=== PATIENT | male | born 1965 | race Caucasian/White ===

== ENCOUNTER 2020-09-24 14:01 | Emergency (ER) | payer MEDICAID, OTHER ==
[2020-09-24] MEDS ORDERED: Sodium Chloride 0.9% 1,000 ML IV ONE (14:32)
--- NOTE | 2020-09-24 14:33 | PCM.EKG ---
#1 Interpretation EKG Date: 09/24/20 Time: 14:25 Rhythm: NSR Rate (Beats/Min): 148 [place]: Normal P-Wave: Present QRS: Normal ST-T: Normal QT: Normal GA/PQ Interval: 71 Comparison: NA - No Prior EKG EKG Interpretation Comments: sinus tachycardia
[2020-09-24] MEDS ORDERED: MVI, Adult with Vitamin K 10 ML, Thiamine 100 MG, Folic Acid 1 MG in Sodium Chloride 0.... IV ONE ×4 (14:50)
[2020-09-24] MEDS ORDERED: LORazepam 2 MG/ML SDV IVPUSH ONE ×2 (14:52→16:08)
[2020-09-24] MEDS ORDERED: Dexamethasone 10 MG/ML SDV IVPUSH ONE (15:07)
--- NOTE | 2020-09-24 15:27 | PCM.SN.2 ---
- Free Text/Narrative Note: Bedside [id number] ultrasound does not reveal evidence of AAA
[2020-09-24 15:30] LABS: BLOOD UREA NITROGEN,BUN 8 mg/dL (7.0-18.0); CARBON DIOXIDE,CO2 25.6 mmol/L (21.0-32.0); CHLORIDE,CL 103 mmol/L (98-107); GLUCOSE RANDOM 124 mg/dL (74-106); LIPASE 128 U/L (73-393); POTASSIUM,K 4.1 mmol/L (3.5-5.1); SODIUM,NA 139 mmol/L (136-148)
--- NOTE | 2020-09-24 15:38 | EDM.PDOC ---
ED HPI GENERAL MEDICAL PROBLEM - General Chief Complaint: Back Pain or Injury Stated Complaint: PAIN Time Seen by Provider: 09/24/20 14:11 Source of Information: Reports: Patient History Limitations: Reports: No Limitations - History of Present Illness INITIAL COMMENTS - FREE TEXT/NARRATIVE: HISTORY AND PHYSICAL: History of present illness: Patient is a 55-year-old male who presents to the emergency department secondary to a 1 week history of increasing low back pain. Patient reports that he has had low back pain for many years and has dealt with it on his own and never e valuated for it before but states that over the last week his pain has increased and is unbearable now along with left lower extremity weakness worsening over the past 1 week. Patient states that the pain is located along the spine and low back but also radiates down into his legs and assumed sciatic nerve issues. Patient reports that the left side is more painful than the right side and his left leg is weaker than the right side. Patient reports that he has been incontinent of urine and stool intermittently over the past several days. Patient states that it is difficult but he is able to walk. Patient relates that he smokes a pack of cigarettes daily for many years and drinks every day and he normally has at least 12 beers daily and states he does have to drink every day or he gets shaky; last had 3 beers just prior to arrival to the ED. Patient also reports that 5 years ago he had a heart attack but states that there was no intervention and he left the hospital on his own against direction of the hospital. Patient states he also has "liver issues" related to drinking. Patient notes he also has all over muscle soreness and has a sunburn to his left knees and calves which are also sore. Denies trauma or injury. Patient denies fever, chills, chest pain, shortness of breath, or cough. Denies headache, neck stiff ness, change in vision, syncope, or near syncope. Denies na usea, vomiting, abdominal pain, diarrhea, constipation, or dysuria. Has not noted any blood in urine or stool. Patient has been eating and drinking appropriately. Review of systems: As per history of present illness and below otherwise all systems reviewed and negative. Past medical history: As per history of present illness and as reviewed below otherwise noncontributory. Surgical history: As per history of present illness and as reviewed below otherwise noncontributory. Social history: See social history for further information Family history: As per history of present illness and as reviewed below otherwise noncontributory. Physical exam: General: Patient is alert, oriented, and laying flat on exam table; appearing uncomfortable with movements. Patient tachycardic 148 bpm but the remainder of his vitals are stable and reviewed by me. HEENT: Atraumatic, normocephalic, pupils equal and reactive bilaterally, negative for conjunctival pallor or scleral icterus, mucous membranes dry, TMs normal bilaterally, throat clear, neck supple, nontender, trachea midline. No drooling or trismus noted. No meningeal signs. No hot potato voice noted. Lungs: Clear to auscultation, breath sounds equal bilaterally, chest nontender. Heart: S1S2, tachycardic at 148 bpm with regular rhythm without overt murmur Abdomen: Soft, nondistended, mild right upper quadrant tenderness. Palpable h epatomegaly noted, negative for masses or splenomegaly. Negative for costovertebral tenderness. Pelvis: Stable nontender. Genitourinary: Deferred. Rectal: Rectal exam performed by PA student Max Tobias observed and supervised directly by me. Decreased rectal tone and incontinent of stool on exam. Skin: Erythema noted over tops of knees and posterior calves bilaterally with slight increase in warmth of these areas (patient notes sunburn). Otherwise, Intact, warm, dry. No lesions or rashes noted. Extremities: See skin and neuro. Bilateral calve tenderness. Otherwise, atraumatic, negative for cords. Neuro: Awake, alert, oriented. Cranial nerves II through XII unremarkable. No UE/LE drift. Patient difficulty to perform bilateral SLR (2/5 strength of the right and 1/5 of the left), 3/5 dorsiflexion/plantar flexion of the RLE and 1/5 of the left lower extremity. Near absent patellar reflex on the right and -2 of the left. -4 plantar reflexes bilaterally. Saddle paresthesia of the left and decreased sensation of the complete LLE. DP/PT pulses intact bilaterally with cap refill < 2 seconds. Patient is able to ambulate on exam but with difficulty and able to sit on edge of bed with bent knees. Full passive ROM of bilateral extremities. Notes: Dr. Johnston directly involved in patient care. Patient is a 55-year-old male who presents emergency department secondary to a 1 week history of worsening low back pain with associated lower extremity weakness, bowel and bladder incontinence. Upon arrival to the ED, patient is mildly uncomfortable and lying on the exam table; discomfort worse with movement and improved with laying still. Patient is noted to be tachycardic at 148 bpm but otherwise vitally stable. Patient has mild right upper quadrant abdominal pain and has palpable hepatomegaly. Patient noted to have decreased strength in his lower extremities with his left being significantly worse than his right. Patient has reduced dorsiflexion plantarflexion with the left being near absent and greatly diminished on the right. Patient noted to have saddle paresthesia on the left as well as paresthesia affecting the majority of the left leg from mid thigh to feet. Bilateral pedal pulses palpated. Patient has absent patellar reflex on the left side and notably decreased on the right. On rectal exam patient is noted to have decreased rectal tone and is incontinent of stool on exam. Will perform cardiac evaluation and call MRI for availability to [facility] patients spine. CIWA 0. Also, patient has bilateral calf pain / swelling / erythema and will obtain bilateral LE US r/o DVT. See Dr. Johnston's dictation for specific EKG interpretation. However, EKG shows sinus tachycardia HR 140s. Otherwise, no STEMI or ischemic changes. MRI does not have capability of imaging today as the schedule is full. Given patient has low back pain with bowel bladder incontinence and saddle anesthesia on exam with significant left lower extremity weakness, patient requires chao sfer to a higher level facility that can perform MRI imaging of his spine immediately. Dr. Johnston performs bedside specific US without evidence of AAA. See his official note for dictation. I did call and speak to Dr. Donaldson at [facility] and thoroughly discussed patients case. Accepting of transfer. Flight arranged. Labwork pending. US is unable to perform bilateral LE venous US due to time constraint with flight. Flight notified that delay 30 minutes before arrival. Patient brought down to CT for CT chest/abd/pelvis angio aorta protocol. Voices understanding and is agreeable to plan of care. Denies any further questions or concerns at this time. Flight at bedside. Patient tachycardic 120s otherwise vitally stable. Patient more drowsy following Ativan but discharged in stable condition. Images for CT were pushed to [facility] and labwork sent to [place]. CBC shows a mildly low red blood cell count at 3.36 with a hemoglobin mildly low at 11.9 and hematocrit 35.1. MCV and elevated at 104.5 and MCH at 35.4. Suggestive of macrocytic anemia. Platelets are noted to be low at 85. INR is normal at 1.05. CMP shows a mildly elevated glucose at 124. With AST mildly elevated at 94. Alk phos elevated at 166. Creatinine kinase is within normal limits. Troponin negative. Otherwise mild derangements of CMP unremarkable. Lipase is within normal limits at 128. Urinalysis is unremarkable. Alcohol level 192. Angiography of chest abdomen pelvis shows normal caliber thoracic and abdominal aorta without evidence of aortic dissection or penetrating atheromatosis ulcer. No significant atheromatous plaque. Mediastinal bilateral hilar and left axillary lymphadenopathy of uncertain etiology. Could be reactive, metastatic, or lymphoproliferative. No primary malignancy identified. Mild paraseptal emphysema. 1.1 cm groundglass pulmonary nodule in the left upper lobe. No acute findings in the abdomen or pelvis. Labwork and imaging was not able to be discussed with patient as he was already at receiving facility prior to completion. Accepting facility made aware of labwork and imaging results. Diagnostics: CBC, CMP, EKG, UA, troponin, Lipase, INR, (LE Venous US not performed as patient requires emergent transfer to higher level facility for MRI) Therapeutics: NS, banana bag, Ativan, Decadron Impression: Acute low back pain r/o possible cord compression Saddle anesthesia Bowel and bladder incontinence Lower extremity weakness Chronic alcohol use Thrombocytopenia Macrocytic anemia, mild Transaminitis Plan: Transfer via flight to Dr. Donaldson at [facility] via flight. Definitive disposition and diagnosis as appropriate pending reevaluation and review of above. lower back Pain Score (Numeric/FACES): 10 - Related Data Allergies Allergy/AdvReac Type Severity Reaction Status Date / Time Penicillins Allergy Anaphylactic Verified 09/24/20 15:30 Shock Home Meds: Home Meds amLODIPine [Norvasc] mg PO DAILY 09/24/20 [History] ED ROS GENERAL - Review of Systems Review Of Systems: Comprehensive ROS is negative, except as noted in HPI. ED EXAM, GENERAL - Physical Exam Exam: See Below (see dictation) Course - Vital Signs Last Recorded V/S: Last Vital Signs Temp 97.7 F 09/24/20 15:00 Pulse 149 H 06/14/21 15:00 Resp 20 09/24/20 15:00 BP 126/87 09/24/20 15:00 Pulse Ox 96 09/24/20 15:00 - Orders/Labs/Meds Orders: Active Orders 24 hr Category Date Time Status Ang Chest [CT] Stat Exams 09/24/20 16:13 Taken Labs: Laboratory Tests 09/24/20 09/24/20 09/24/20 Range/Units 14:28 14:28 14:28 WBC 6.00 (4.0-11.0) K/uL RBC 3.36 L (4.50-5.90) M/uL Hgb 11.9 L (13.0-17.0) g/dL Hct 35.1 L (38.0-50.0) % MCV 104.5 H (80.0-98.0) fL MCH 35.4 H (27.0-32.0) pg MCHC 33.9 (31.0-37.0) g/dL RDW Std Deviation 59.3 (28.0-62.0) fl RDW Coeff of Maria C 16 H (11.0-15.0) % Plt Count 85 L (150-400) K/uL MPV 11.80 (7.40-12.00) fL Neut % (Auto) 53.6 (48.0-80.0) % Lymph % (Auto) 31.3 (16.0-40.0) % [place] % (Auto) 12.8 (0.0-15.0) % Eos % (Auto) 1.8 (0.0-7.0) % Baso % (Auto) 0.5 (0.0-1.5) % Neut # (Auto) 3.2 (1.4-5.7) K/uL Lymph # (Auto) 1.9 (0.6-2.4) K/uL [place] # (Auto) 0.8 (0.0-0.8) K/uL Eos # (Auto) 0.1 (0.0-0.7) K/uL Baso # (Auto) 0.0 (0.0-0.1) K/uL Nucleated RBC % 0.8 /100WBC Nucleated RBCs # 0 K/uL INR Sodium 139 (136-148) mmol/L Potassium 4.1 (3.5-5.1) mmol/L Chloride 103 (98-107) mmol/L Carbon Dioxide 25.6 (21.0-32.0) mmol/L BUN 8 (7.0-18.0) mg/dL Creatinine 1.0 (0.8-1.3) mg/dL Est Cr Clr Drug Dosing TNP Estimated GFR (MDRD) > 60.0 ml/min Glucose 124 H (74-106) mg/dL Calcium 8.5 (8.5-10.1) mg/dL Total Bilirubin 0.6 (0.2-1.0) mg/dL AST 94 H (15-37) IU/L ALT 59 (14-63) IU/L Alkaline Phosphatase 166 H (46-116) U/L Creatine Kinase (26-308) U/L Troponin I < 0.050 (0.000-0.056) ng/mL Total Protein 7.5 (6.4-8.2) g/dL Albumin 2.8 L (3.4-5.0) g/dL Globulin 4.7 H (2.6-4.0) g/dL Albumin/Globulin Ratio 0.6 L (0.9-1.6) Lipase 128 (73-393) U/L Urine Color Urine Appearance Urine pH (5.0-8.0) Ur Specific [place] (1.001-1.035) Urine Protein (NEGATIVE) mg/dL Urine Glucose (UA) (NEGATIVE) mg/dL Urine Ketones (NEGATIVE) mg/dL Urine Occult Blood (NEGATIVE) Urine Nitrite (NEGATIVE) Urine Bilirubin (NEGATIVE) Urine Urobilinogen (<2.0) EU/dL Ur Leukocyte Esterase (NEGATIVE) Ethyl Alcohol 192 mg/dL 09/24/20 09/24/20 09/24/20 Range/Units 14:28 15:24 15:50 WBC (4.0-11.0) K/uL RBC (4.50-5.90) M/uL Hgb (13.0-17.0) g/dL Hct (38.0-50.0) % MCV (80.0-98.0) fL MCH (27.0-32.0) pg MCHC (31.0-37.0) g/dL RDW Std Deviation (28.0-62.0) fl RDW Coeff of Maria C (11.0-15.0) % Plt Count (150-400) K/uL MPV (7.40-12.00) fL Neut % (Auto) (48.0-80.0) % Lymph % (Auto) (16.0-40.0) % [place] % (Auto) (0.0-15.0) % Eos % (Auto) (0.0-7.0) % Baso % (Auto) (0.0-1.5) % Neut # (Auto) (1.4-5.7) K/uL Lymph # (Auto) (0.6-2.4) K/uL [place] # (Auto) (0.0-0.8) K/uL Eos # (Auto) (0.0-0.7) K/uL Baso # (Auto) (0.0-0.1) K/uL Nucleated RBC % /100WBC Nucleated RBCs # K/uL INR 1.05 Sodium (136-148) mmol/L Potassium (3.5-5.1) mmol/L Chloride (98-107) mmol/L Carbon Dioxide (21.0-32.0) mmol/L BUN (7.0-18.0) mg/dL Creatinine (0.8-1.3) mg/dL Est Cr Clr Drug Dosing Estimated GFR (MDRD) ml/min Glucose (74-106) mg/dL Calcium (8.5-10.1) mg/dL Total Bilirubin (0.2-1.0) mg/dL AST (15-37) IU/L ALT (14-63) IU/L Alkaline Phosphatase (46-116) U/L Creatine Kinase 230 (26-308) U/L Troponin I (0.000-0.056) ng/mL Total Protein (6.4-8.2) g/dL Albumin (3.4-5.0) g/dL Globulin (2.6-4.0) g/dL Albumin/Globulin Ratio (0.9-1.6) Lipase (73-393) U/L Urine Color YELLOW Urine Appearance CLEAR Urine pH 5.5 (5.0-8.0) Ur Specific [place] 1.010 (1.001-1.035) Urine Protein NEGATIVE (NEGATIVE) mg/dL Urine Glucose (UA) NEGATIVE (NEGATIVE) mg/dL Urine Ketones NEGATIVE (NEGATIVE) mg/dL Urine Occult Blood NEGATIVE (NEGATIVE) Urine Nitrite NEGATIVE (NEGATIVE) Urine Bilirubin NEGATIVE (NEGATIVE) Urine Urobilinogen 0.2 (<2.0) EU/dL Ur Leukocyte Esterase NEGATIVE (NEGATIVE) Ethyl Alcohol mg/dL Meds: Medications Discontinued Medications Generic Name Dose Route Start Last Admin Trade Name Freq PRN Reason Stop Dose Admin Dexamethasone 16 mg 09/24/20 15:07 09/24/20 15:13 Dexamethasone 10 Mg/Ml Sdv IVPUSH 09/24/20 15:08 16 mg ONETIME ONE Administration Sodium Chloride 1,000 mls @ 999 mls/hr 09/24/20 14:32 09/24/20 14:46 Normal Saline IV 09/24/20 15:32 999 mls/hr BOLUS ONE Administration Multivitamins/Minerals 10 ml/ 1,011.2 mls @ 999 mls/hr 09/24/20 14:50 09/24/20 15:54 Thiamine HCl 100 mg/ Folic IV 09/24/20 15:50 999 mls/hr Acid 1 mg/ Sodium Chloride ONETIME ONE Administration Iopamidol 100 ml 09/24/20 16:40 09/24/20 16:41 Iopamidol 755 Mg/Ml 500 Ml Multipack Bottle IVPUSH 09/24/20 16:41 100 ml ONETIME ONE Administration Lorazepam 2 mg 09/24/20 14:52 09/24/20 15:14 Lorazepam 2 Mg/Ml Sdv IVPUSH 09/24/20 14:53 2 mg ONETIME ONE Administration Lorazepam 2 mg 09/24/20 16:08 09/24/20 19:14 Lorazepam 2 Mg/Ml Sdv IVPUSH 09/24/20 16:09 Not Given ONETIME ONE Departure - Departure Time of Disposition: 21:09 Disposition: DC/Tfer to Acute Hospital 02 Clinical Impression: Saddle anesthesia, Bowel and bladder incontinence, Chronic alcohol use, Thrombocytopenia, Macrocytic anemia, Transaminitis Acute low back pain Qualifiers: Back pain laterality: bilateral Sciatica presence: unspecified whether sciatica present Qualified Code(s): M54.5 - Low back pain Lower extremity weakness Qualifiers: Laterality: bilateral Qualified Code(s): R29.898 - Other symptoms and signs involving the musculoskeletal system - Discharge Information Referrals: PCP,None [Ordering Only Provider] - Forms: ED Department Discharge Sepsis Event Note (ED) - Focused Exam Vital Signs: Vital Signs Temp Pulse Resp BP Pulse Ox 09/24/20 15:00 97.7 F 149 H 20 126/87 96 - My Orders Last 24 Hours: My Active Orders 09/24/20 16:13 Ang Chest [CT] Stat - Assessment/Plan Last 24 Hours: My Active Orders 09/24/20 16:13 Ang Chest [CT] Stat
[2020-09-24] MEDS ORDERED: Iopamidol 755 MG/ML 500 ML Multipack Bottle IVPUSH ONE (16:40)
--- NOTE | 2020-09-24 18:39 | CT ---
INDICATION: Low back pain and low leg pain, tachycardia. COMPARISON: None. TECHNIQUE: CTA of the chest, abdomen, and pelvis with 100 cc of Isovue 370 IV contrast. Coronal and sagittal reconstructions. 3D post processing was performed. FINDINGS: Chest: Normal heart size. Normal variant origin of the left vertebral artery from the aortic arch. The great vessels are widely patent. Normal caliber thoracic aorta. No evidence of aortic dissection or penetrating atheromatous ulcer. No definite intramural hematoma, however a noncontrast phase was not provided. No significant atheromatous plaque. Normal caliber central pulmonary arteries. No large central pulmonary embolism. No pericardial effusion. There is mediastinal and bilateral hilar lymphadenopathy of uncertain etiology. For example, a left pretracheal lymph node measures 1.3 cm in short axis (series 402, image 265) and a subcarinal lymph node measures 1.7 cm in short axis (image 361). There is also a borderline enlarged left axillary lymph node measuring 1.0 cm in short axis (image 132). Fat stranding in the left axilla. No focal consolidation, pleural effusion, pneumothorax. Mild paraseptal emphysema in the lung apices. Minimal bibasilar atelectasis. 1.1 cm ground-glass pulmonary nodule in the anterior left upper lobe (series 4 image 93). Few additional smaller ill-defined ground-glass nodular opacities in the lingula. No central endobronchial lesion. Mild diffuse bronchial wall thickening. The thyroid gland is normal in appearance. The bones are unremarkable. Abdomen/Pelvis: Normal caliber abdominal aorta and bilateral iliac arteries. No significant atheromatous plaque. No evidence of aortic dissection or penetrating atheromatous ulcer. The celiac artery, superior mesenteric artery, inferior mesenteric artery, and bilateral renal arteries are patent without significant stenosis. Arterial phase of contrast limits evaluation of the solid organs. Tiny calcified granuloma in the inferior right hepatic lobe. Calcified splenic granulomas. The gallbladder, pancreas, and adrenal glands are negative. Symmetric enhancement of the kidneys. No hydronephrosis. No obstructing urinary calculi. The bladder and prostate gland are unremarkable. No bowel dilation. Negative appendix. No intraperitoneal free air or fluid. Mildly prominent bilateral inguinal lymph nodes. No lymphadenopathy by size criteria within the abdomen or pelvis. Mild degenerative changes of the spine and hips. IMPRESSION: 1. Normal caliber thoracic and abdominal aorta without evidence of aortic dissection or penetrating atheromatous ulcer. No significant atheromatous plaque. 2. Mediastinal, bilateral hilar, and left axillary lymphadenopathy of uncertain etiology. This could be reactive, metastatic, or lymphoproliferative. No primary malignancy is identified. 3. Mild paraseptal emphysema. 4. 1.1 cm ground-glass pulmonary nodule in the left upper lobe. Please see follow-up guidelines below. 5. No acute findings in the abdomen or pelvis. [employer] - SUBSOLID NODULES: GROUND GLASS - nodule less than 6 mm: No routine follow-up. - nodule greater than 6 mm: CT at 6-12 months to confirm persistence, then CT every 2 years until 5 years. Please note that all CT scans at this facility use dose modulation, iterative reconstruction, and/or weight-based dosing when appropriate to reduce radiation dose to as low as reasonably achievable. Dictated by Kati Davis MD @ 09/24/2020 6:37:[address] Kati Davis @ Sep 24 2020 6:37PM
--- NOTE | 2020-09-25 12:15 | CT ---
EXAM DATE: 09/24/20 PATIENT'S AGE: 55 Patient: BANDAR BERG Facility: [facility] Site . Site : [id number] Study: CT-Chest/Abd/Pelvis Angio WHOLE AORTA-09/24/2020 5:08:09 PM Ordering Physician: Ceasar Hsieh Final Report: INDICATION: Low back pain and low leg pain, tachycardia. COMPARISON: None. TECHNIQUE: CTA of the chest, abdomen, and pelvis with 100 cc of Isovue 370 IV contrast. Coronal and sagittal reconstructions. 3D post processing was performed. FINDINGS: Chest: Normal heart size. Normal variant origin of the left vertebral artery from the aortic arch. The great vessels are widely patent. Normal caliber thoracic aorta. No evidence of aortic dissection or penetrating atheromatous ulcer. No definite intramural hematoma, however a noncontrast phase was not provided. No significant atheromatous plaque. Normal caliber central pulmonary arteries. No large central pulmonary embolism. No pericardial effusion. There is mediastinal and bilateral hilar lymphadenopathy of uncertain etiology. For example, a left pretracheal lymph node measures 1.3 cm in short axis (series 402, image 265) and a subcarinal lymph node measures 1.7 cm in short axis (image 361). There is also a borderline enlarged left axillary lymph node measuring 1.0 cm in short axis (image 132). Fat stranding in the left axilla. No focal consolidation, pleural effusion, pneumothorax. Mild paraseptal emphysema in the lung apices. Minimal bibasilar atelectasis. 1.1 cm ground-glass pulmonary nodule in the anterior left upper lobe (series 4 image 93). Few additional smaller ill-defined ground-glass nodular opacities in the lingula. No central endobronchial lesion. Mild diffuse bronchial wall thickening. The thyroid gland is normal in appearance. The bones are unremarkable. Abdomen/Pelvis: Normal caliber abdominal aorta and bilateral iliac arteries. No significant atheromatous plaque. No evidence of aortic dissection or penetrating atheromatous ulcer. The celiac artery, superior mesenteric artery, inferior mesenteric artery, and bilateral renal arteries are patent without significant stenosis. Arterial phase of contrast limits evaluation of the solid organs. Tiny calcified granuloma in the inferior right hepatic lobe. Calcified splenic granulomas. The gallbladder, pancreas, and adrenal glands are negative. Symmetric enhancement of the kidneys. No hydronephrosis. No obstructing urinary calculi. The bladder and prostate gland are unremarkable. No bowel dilation. Negative appendix. No intraperitoneal free air or fluid. Mildly prominent bilateral inguinal lymph nodes. No lymphadenopathy by size criteria within the abdomen or pelvis. Mild degenerative changes of the spine and hips. IMPRESSION: 1. Normal caliber thoracic and abdominal aorta without evidence of aortic dissection or penetrating atheromatous ulcer. No significant atheromatous plaque. 2. Mediastinal, bilateral hilar, and left axillary lymphadenopathy of uncertain etiology. This could be reactive, metastatic, or lymphoproliferative. No primary malignancy is identified. 3. Mild paraseptal emphysema. 4. 1.1 cm ground-glass pulmonary nodule in the left upper lobe. Please see follow-up guidelines below. 5. No acute findings in the abdomen or pelvis. [employer]UID[employer] - SUBSOLID NODULES: GROUND GLASS - nodule less than 6 mm: No routine follow-up. - nodule greater than 6 mm: CT at 6-12 months to confirm persistence, then CT every 2 years until 5 years. Please note that all CT scans at this facility use dose modulation, iterative reconstruction, and/or weight-based dosing when appropriate to reduce radiation dose to as low as reasonably achievable. Dictated by Kati Davis MD @ 09/24/2020 6:37:34 PM Signed by: Kati Davis MD @09/24/2020 6:37:34 PM (Electronic Signature) Report Signed by Proxy. [facility]
== END 2020-09-24 17:03 ==
LOC: MW.ED 14:01
DX: M54.5 Low back pain (principal); R20.0 Anesthesia of skin; R32 Unspecified urinary incontinence; R15.9 Full incontinence of feces; M62.81 Muscle weakness (generalized); D53.9 Nutritional anemia, unspecified; R74.01 Elevation of levels of liver transaminase levels; D69.6 Thrombocytopenia, unspecified; Z88.0 Allergy status to penicillin; Z79.899 Other long term (current) drug therapy; Z72.89 Other problems related to lifestyle
CPT/HCPCS: 36415; 71275; 74174; 80053; 80307; 81003; 82550; 83690; 84484; 85025; 85610; 93005; 96365; 96375; 99285; J1100; J2060; J3411; J7030; Q9967; 93010

== ENCOUNTER 2020-09-27 09:35 | Emergency (ER) | payer MEDICAID ==
[2020-09-27] MEDS ORDERED: Albuterol/Ipratropium 3.0-0.5 MG/3 ML Neb Soln NEB ONE ×2 (09:42→10:41)
--- NOTE | 2020-09-27 09:46 | PCM.EKG ---
#1 Interpretation EKG Date: 09/27/20 Time: 09:33 Rhythm: NSR Rate (Beats/Min): 77 [place]: Normal P-Wave: Present QRS: Normal ST-T: Normal QT: Normal Comparison: Change From Previous EKG (Prior on 09/24/20 was A flutter) EKG Interpretation Comments: Sinus Rhythm
[2020-09-27 10:23] LABS: BLOOD UREA NITROGEN,BUN 12 mg/dL (7.0-18.0); CARBON DIOXIDE,CO2 23.2 mmol/L (21.0-32.0); CHLORIDE,CL 106 mmol/L (98-107); GLUCOSE RANDOM 157 mg/dL (74-106); POTASSIUM,K 3.9 mmol/L (3.5-5.1); SODIUM,NA 140 mmol/L (136-148)
--- NOTE | 2020-09-27 10:36 | CR ---
INDICATION: Chest pain TECHNIQUE: Chest 1 views COMPARISON: CT chest September 24, 2020 FINDINGS: Cardiovascular and mediastinum: Heart size and vasculature are normal in caliber and appearance. Lungs and pleural spaces: Infiltrate is suspected in the basilar segment of the right upper lobe. Remainder of the lungs and pleural spaces are clear. Bones and soft tissues: No significant findings. IMPRESSION: Findings suspicious for a pneumonia in the basilar segment of the right upper lobe. There is no correlate to this finding on the CT chest exam from 3 days ago. No other finding to explain chest pain. Dictated by Tez Daniels MD @ 09/27/2020 10:34:[address] Tez Daniels @ Sep 27 2020 10:34AM
[2020-09-27] MEDS ORDERED: cefTRIAXone 2 GM in Premix Bag 1 BAG IV ONE (11:29)
[2020-09-27] MEDS ORDERED: Azithromycin 250 MG Tab PO STA (11:29)
[2020-09-27] MEDS ORDERED: predniSONE 20 MG Tab PO ONE (14:16)
--- NOTE | 2020-09-27 14:20 | EDM.PDOC ---
ED HPI GENERAL MEDICAL PROBLEM - General Chief Complaint: Cardiovascular Problem Stated Complaint: short of breath Time Seen by Provider: 09/27/20 09:41 - History of Present Illness INITIAL COMMENTS - FREE TEXT/NARRATIVE: CHIEF COMPLAINT(S): Palpitations HISTORY OF PRESENT ILLNESS: This is a 55-year-old man with a past medical history of tobacco use disorder and recent diagnosis of atrial flutter with RVR who is currently on diltiazem and blood thinners who comes to the emergency department with a chief complaint of palpitations. He states that prior to arrival he was experiencing dyspnea and felt like it was heart was racing. He states that he does have some mild pain in the center of his chest which he rates as 1-2 out of 10 rated as pressure. He denies any diaphoresis, nausea or vomiting. He denies any history of CAD or CHF. He denies any recent travel, recent surgery or history of DVT or PE. He states that he does use tobacco daily and is uncertain if he has COPD. He denies any lower extremity edema, n umbness, tingling, weakness. He denies any dizziness or weakness. REVIEW OF SYSTEMS: Constitutional: Denies fever, chills. Eyes: Denies eye pain Ears, Nose, Mouth, & Throat: Denies earache Cardiovascular: Positive for central chest pain and palpitations Respiratory: Positive for shortness of breath Gastrointestinal: Denies Nausea, vomiting, diarrhea, hematochezia. Genitourinary: Denies hematuria Skin:Denies a rash MSK: Denies joint pain Neurological: Denies blurred vision Psychiatric: Denies depression PAST MEDICAL HISTORY: As per history of present illness and as reviewed below otherwise noncontributory. SURGICAL HISTORY: As per history of present illness and as reviewed below otherwise noncontributory. SOCIAL HISTORY: As per history of present illness and as reviewed below other vaca noncontributory. FAMILY HISTORY: As per history of present illness and as reviewed below otherwise noncontributory. EXAMINATION OF ORGAN SYSTEMS/BODY AREAS: Constitutional: Blood pressure is 155/90 and 168/97 in bilateral arms, heart rate 77, respiratory 19 with an oxygen saturation 93% on room air. Temperature 36.4 General: Middle-aged man who does not appear to be in acute distress Psychiatric: Appropriate mood and affect. Eyes: No scleral icterus or conjunctival erythema ENMT: Moist mucous membranes. No pharyngeal erythema Cardiovascular: Regular, rate, and rhythm. No gallops, murmurs, or rubs. Bilateral upper extremity pulses symmetric and intact. No peripheral edema. No JVD. Respiratory: Bilateral rhonchorous breath sounds with wheezing expiratory. Patient is speaking in full sentences. Gastrointestinal: Soft, non-tender, non-distended. Normoactive bowel sounds Genitourinary: No suprapubic tenderness Musculoskeletal: Normal range of motion. Skin: No lesions or abrasions. Neurological: Alert, GCS 15 MEDICAL DECISION MAKING AND COURSE IN THE ED WITH INTERPRETATION/REVIEW OF DIAGNOSTIC STUDIES: This is a 55-year-old man with a past medical history of recent diagnosis of atrial flutter who is on diltiazem and a blood thinner with history of tobacco use who comes to the emergency department with palpitations, dyspnea, and mild chest pain who is mildly hypertensive and borderline hypoxic on room air with bilateral rhonchorous breath sounds with expiratory wheezing. The patient does not have any known history of COPD however we will provide the patient with a DuoNeb and reevaluate. Given his recent diagnosis of atrial flutter and given his age will obtain a cardiac work-up to evaluate for ACS. EKG was unremarkable. Will obtain a Covid swab given the hypoxia. We will place the patient on cardiac monitoring and pulse oximetry. monitoring analyst did reveal sinus rhythm and pulse oximetry with good waveform was 93 to 94% on room air Laboratory: CBC reveals a macrocytic anemia with an MCV of 107, hemoglobin of 12.2, hematocrit of 36.7. Thrombocytopenia at 95. CMP reveals hyperglycemia at 157, hypocalcemia at 7.7, hypoalbuminemia at 2.9, mild elevation in AST at 72. Troponin is negative. Covid is negative. The radiological images were viewed by myself along with reading the report from the radiologist. Chest x-ray reveals a right upper lobe pneumonia. On reevaluation the patient was breathing more comfortably however he continued to have some expiratory wheezing and rhonchorous breath sounds. I did discuss we would repeat the troponin, start the patient on antibiotics for the pneumonia and reevaluate. We will provide the patient with an additional DuoNeb treatment. Laboratory: Troponin is negative. On reevaluation the patient's lung sounds were completely clear and was saturating 96% on room air. At this time I did discuss with him that he does have a pneumonia and I would like to treat him with antibiotics outpatient. I discussed that I be prescribing doxycycline that needs to be taken twice a day given his allergy to penicillins and given her local sensitivities azithromycin is not a good choice. I also discussed that he may have a component of COPD given his tobacco use. I did encourage tobacco cessation. I did provide the patient with prednisone while in the emergency department and prescribed him a 5-day course and an albuterol inhaler. He is to discuss this with his primary care physician. I discussed strict return precautions and he does have follow- up with his educational advisor and his primary care doctor. I encouraged him to keep these appointments. DISPOSITION: The patient was discharged home in stable condition. The patient will follow up with primary care physician cardiology at his scheduled appointment CONDITION: Fair PROCEDURES: monitoring analyst, pulse oximetry interpretation FINAL IMPRESSION(S)/DIAGNOSES: 1. Acute respiratory distress secondary to right upper lung pneumonia 2. Acute community-acquired pneumonia 3. Likely acute COPD exacerbation Angel Cool M.D. chest Pain Score (Numeric/FACES): 3 - Related Data Allergies Allergy/AdvReac Type Severity Reaction Status Date / Time Penicillins Allergy Anaphylactic Verified 09/27/20 09:51 Shock Home Meds: Home Meds Albuterol [Proventil HFA] 200 puff INH Q4H #1 inhaler 09/27/20 [Rx] Doxycycline [Vibramycin] 100 mg PO BID #14 tab 09/27/20 [Rx] Metoprolol Succinate 100 mg PO DAILY 09/27/20 [History] dexAMETHasone [Dexamethasone] 1 tab PO ASDIRECTED 09/27/20 [History] dilTIAZem HCL [Diltiazem 24Hr ER] 180 mg PO DAILY 09/27/20 [History] predniSONE [Prednisone] 50 mg PO DAILY #5 tablet 09/27/20 [Rx] Past Medical History Cardiovascular History: Reports: Hypertension, SD Other Cardiovascular History: Aflutter RVR Musculoskeletal History: Reports: Back Pain, Chronic - Infectious Disease History Infectious Disease History: Reports: Chicken Pox, Measles Social & Family History - Family History Family Medical History: No Pertinent Family History - Tobacco Use Packs/Tins Daily: 1 - Alcohol Use Number of Drinks Per Day: 12 - Recreational Drug Use Recreational Drug Use: No ED ROS ALLERGIC REACTION - Review of Systems Review Of Systems: See Below ED EXAM GENERAL NO PERIP PULSE - Physical Exam Exam: See Below Course - Vital Signs Last Recorded V/S: Last Vital Signs Temp 36.4 C 09/27/20 09:49 Pulse 71 09/27/20 14:30 Resp 19 09/27/20 09:49 BP 152/92 H 09/27/20 14:30 Pulse Ox 97 09/27/20 14:30 - Orders/Labs/Meds Labs: Laboratory Tests 09/27/20 09/27/20 09/27/20 Range/Units 09:42 09:42 10:16 WBC 9.61 (4.0-11.0) K/uL RBC 3.43 L (4.50-5.90) M/uL Hgb 12.2 L (13.0-17.0) g/dL Hct 36.7 L (38.0-50.0) % MCV 107.0 H (80.0-98.0) fL MCH 35.6 H (27.0-32.0) pg MCHC 33.2 (31.0-37.0) g/dL RDW Std Deviation 62.9 H (28.0-62.0) fl RDW Coeff of Maria C 16 H (11.0-15.0) % Plt Count 95 L (150-400) K/uL MPV 11.20 (7.40-12.00) fL Neut % (Auto) 85.0 H (48.0-80.0) % Lymph % (Auto) 8.6 L (16.0-40.0) % [place] % (Auto) 6.3 (0.0-15.0) % Eos % (Auto) 0.1 (0.0-7.0) % Baso % (Auto) 0.0 (0.0-1.5) % Neut # (Auto) 8.2 H (1.4-5.7) K/uL Lymph # (Auto) 0.8 (0.6-2.4) K/uL [place] # (Auto) 0.6 (0.0-0.8) K/uL Eos # (Auto) 0.0 (0.0-0.7) K/uL Baso # (Auto) 0.0 (0.0-0.1) K/uL Nucleated RBC % 0.2 /100WBC Nucleated RBCs # 0 K/uL Sodium 140 (136-148) mmol/L Potassium 3.9 (3.5-5.1) mmol/L Chloride 106 (98-107) mmol/L Carbon Dioxide 23.2 (21.0-32.0) mmol/L BUN 12 (7.0-18.0) mg/dL Creatinine 1.0 (0.8-1.3) mg/dL Est Cr Clr Drug Dosing 95.25 mL/min Estimated GFR (MDRD) > 60.0 ml/min Glucose 157 H (74-106) mg/dL Calcium 7.7 L (8.5-10.1) mg/dL Magnesium 1.8 (1.8-2.4) mg/dL Total Bilirubin 0.5 (0.2-1.0) mg/dL AST 72 H (15-37) IU/L ALT 55 (14-63) IU/L Alkaline Phosphatase 119 H (46-116) U/L Troponin I < 0.050 (0.000-0.056) ng/mL Total Protein 7.4 (6.4-8.2) g/dL Albumin 2.9 L (3.4-5.0) g/dL Globulin 4.5 H (2.6-4.0) g/dL Albumin/Globulin Ratio 0.6 L (0.9-1.6) SARS-CoV-2 RNA (MCKENZIE) NEGATIVE (NEGATIVE) 09/27/20 Range/Units 12:45 WBC (4.0-11.0) K/uL RBC (4.50-5.90) M/uL Hgb (13.0-17.0) g/dL Hct (38.0-50.0) % MCV (80.0-98.0) fL MCH (27.0-32.0) pg MCHC (31.0-37.0) g/dL RDW Std Deviation (28.0-62.0) fl RDW Coeff of Maria C (11.0-15.0) % Plt Count (150-400) K/uL MPV (7.40-12.00) fL Neut % (Auto) (48.0-80.0) % Lymph % (Auto) (16.0-40.0) % [place] % (Auto) (0.0-15.0) % Eos % (Auto) (0.0-7.0) % Baso % (Auto) (0.0-1.5) % Neut # (Auto) (1.4-5.7) K/uL Lymph # (Auto) (0.6-2.4) K/uL [place] # (Auto) (0.0-0.8) K/uL Eos # (Auto) (0.0-0.7) K/uL Baso # (Auto) (0.0-0.1) K/uL Nucleated RBC % /100WBC Nucleated RBCs # K/uL Sodium (136-148) mmol/L Potassium (3.5-5.1) mmol/L Chloride (98-107) mmol/L Carbon Dioxide (21.0-32.0) mmol/L BUN (7.0-18.0) mg/dL Creatinine (0.8-1.3) mg/dL Est Cr Clr Drug Dosing mL/min Estimated GFR (MDRD) ml/min Glucose (74-106) mg/dL Calcium (8.5-10.1) mg/dL Magnesium (1.8-2.4) mg/dL Total Bilirubin (0.2-1.0) mg/dL AST (15-37) IU/L ALT (14-63) IU/L Alkaline Phosphatase (46-116) U/L Troponin I < 0.050 (0.000-0.056) ng/mL Total Protein (6.4-8.2) g/dL Albumin (3.4-5.0) g/dL Globulin (2.6-4.0) g/dL Albumin/Globulin Ratio (0.9-1.6) SARS-CoV-2 RNA (MCKENZIE) (NEGATIVE) Meds: Medications Discontinued Medications Generic Name Dose Route Start Last Admin Trade Name Freq PRN Reason Stop Dose Admin Albuterol/Ipratropium 3 ml 09/27/20 09:42 09/27/20 10:07 Albuterol/Ipratropium 3.0-0.5 Mg/3 Ml Neb Soln NEB 09/27/20 09:43 3 ml ONETIME ONE Administration Albuterol/Ipratropium 3 ml 09/27/20 10:41 09/27/20 11:26 Albuterol/Ipratropium 3.0-0.5 Mg/3 Ml Neb Soln NEB 09/27/20 10:42 3 ml ONETIME ONE Administration Azithromycin 500 mg 09/27/20 11:29 09/27/20 12:15 Azithromycin 250 Mg Tab PO 09/27/20 11:30 500 mg ONETIME STA Administration Ceftriaxone Sodium/Dextrose 2 50 mls @ 100 mls/hr 09/27/20 11:29 09/27/20 12:15 gm/ Premix IV 09/27/20 11:58 100 mls/hr ONETIME ONE Administration Prednisone 60 mg 09/27/20 14:16 09/27/20 14:26 Prednisone 20 Mg Tab PO 09/27/20 14:17 60 mg ONETIME ONE Administration Departure - Departure Time of Disposition: 14:19 Disposition: Home, Self-Care 01 Condition: Fair Clinical Impression: Chest pain, Pneumonia, Bronchitis - Discharge Information *PRESCRIPTION DRUG MONITORING PROGRAM REVIEWED*: No *COPY OF PRESCRIPTION DRUG MONITORING REPORT IN PATIENT LORRAINE: No Prescriptions: predniSONE [Prednisone] 50 mg PO DAILY #5 tablet Albuterol [Proventil HFA] 200 puff INH Q4H #1 inhaler Doxycycline [Vibramycin] 100 mg PO BID #14 tab Instructions: Metered Dose Inhaler (No Spacer Used), Acute Bronchitis, Adult, [id number], Nonspecific Chest Pain, Adult, [id number], Community-Acquired Pneumonia, Adult, [id number] Referrals: Rolando Virk MD [Primary Care Provider] - Forms: ED Department Discharge Additional Instructions: You evaluate today on an emergent basis. At this time your cardiac work-up was negative. However your x-ray did show a right sided pneumonia. We did treat you for COPD exacerbation which did improve your breathing. We did provide you with antibiotics. I do suspect underlying COPD given that you do smoke. I would like you to take doxycycline twice a day for the next 7 days for the pneumonia, prednisone daily for the next 5 days for suspected COPD exacerbation. I also sent you a prescription for albuterol which is to use for shortness of breath and wheezing every 4 hours. Please continue to keep your cardiology appointment that is scheduled and also keep your primary care physician appointment tomorrow. If you have any worsening of your symptoms please return to the emergency department. [facility] - Primary [facility] [address] [place] [id number] [address] [address] The patient is informed of any results of their evaluation and diagnostic workup and all questions are answered. They are given discharge instructions and return precautions. The patient is stable for discharge. The patient states they understand and agree with the plan and that they will return if their symptoms get worse or if they have any new concerns. The following information is given to patients seen in the emergency department who are being discharged to home. This information is to outline your options for follow-up care. We provide all patients seen in our emergency department with a follow-up referral. The need for follow-up, as well as the timing and circumstances, are variable depending upon the specifics of your emergency department visit. If you don't have a primary care physician on staff, we will provide you with a referral. We always advise you to contact your personal physician following an emergency department visit to inform them of the circumstance of the visit and for follow-up with them and/or the need for any referrals to a consulting specialist. The emergency department will also refer you to a specialist when appropriate. This referral assures that you have the opportunity for follow-up care with a specialist. All of these measure are taken in an effort to provide you with optimal care, which includes your follow-up. Under all circumstances we always encourage you to contact your private physician who remains a resource for coordinating your care. When calling for follow-up care, please make the office aware that this follow-up is from your recent emergency room visit. If for any reason you are refused follow-up, please contact the [facility] Emergency Department at and asked to speak to the emergency department charge nurse. Sepsis Event Note (ED) - Evaluation Sepsis Screening Result: No Definite Risk - Focused Exam Vital Signs: Vital Signs Temp Pulse Resp BP BP Pulse Ox 09/27/20 14:30 71 152/92 H 97 09/27/20 13:38 80 148/91 H 96 09/27/20 13:07 64 131/86 92 L 09/27/20 12:07 68 130/86 92 L 09/27/20 11:08 63 101/75 98 09/27/20 10:38 62 130/85 92 L 09/27/20 10:07 70 152/93 H 92 L 09/27/20 09:49 36.4 C 77 19 155/90 H 168/97 H 93 L
== END 2020-09-27 14:34 | disposition home or self-care (01) ==
LOC: MW.ED 09:35
DX: J18.9 Pneumonia, unspecified organism (principal); J40 Bronchitis, not specified as acute or chronic; R06.03 Acute respiratory distress; I10 Essential (primary) hypertension; I25.2 Old myocardial infarction; Z72.0 Tobacco use; Z20.822 Contact with and (suspected) exposure to COVID-19; Z88.0 Allergy status to penicillin
CPT/HCPCS: 36415; 71045; 80053; 83735; 84484; 85025; 87635; 93005; 94640; 96365; 99285; A9270; J0696; 99284; J7620-GY; U0002

== ENCOUNTER 2020-12-26 12:57 | Emergency (ER) | payer OTHER, MEDICAID ==
[2020-12-26] MEDS ORDERED: Albuterol/Ipratropium 3.0-0.5 MG/3 ML Neb Soln NEB ONE (13:07)
[2020-12-26] MEDS ORDERED: Albuterol/Ipratropium 3.0-0.5 MG/3 ML Neb Soln ONE (13:09)
[2020-12-26] MEDS ORDERED: Lactated Ringers 1,000 ML IV SCH (13:15)
[2020-12-26] MEDS ORDERED: Morphine 4 MG/ML Syringe IVPUSH ONE (13:21)
[2020-12-26 13:40] LABS: BLOOD UREA NITROGEN,BUN 18 mg/dL (7.0-18.0); CARBON DIOXIDE,CO2 28.9 mmol/L (21.0-32.0); CHLORIDE,CL 105 mmol/L (98-107); GLUCOSE RANDOM 117 mg/dL (74-106); POTASSIUM,K 4.4 mmol/L (3.5-5.1); SODIUM,NA 142 mmol/L (136-148)
--- NOTE | 2020-12-26 14:30 | CR ---
Indication: Injury. Technique: Left humerus 3 views. Comparison: None. Findings: No acute fracture or dislocation. The shoulder and elbow appear normally aligned. Small spur arising from the lateral epicondyle of the distal humerus. IV catheter in the antecubital fossa. Soft tissues are unremarkable. Impression: No acute findings. Dictated by Kati Davis MD @ 12/26/2020 2:29:44 PM (Electronically Signed)
--- NOTE | 2020-12-26 14:32 | CR ---
INDICATION: Chest pain. TECHNIQUE: Chest 1 view. COMPARISON: Chest radiograph 09/27/2020. FINDINGS: Resolution of the previously seen right mid lung infiltrate. No new focal consolidation. No pleural effusion or pneumothorax. Normal heart size and pulmonary vascularity. Degenerative changes of the shoulders. IMPRESSION: 1. No acute cardiopulmonary findings. 2. Resolution of the previously seen right mid lung infiltrate. Dictated by Kati Davis MD @ 12/26/2020 2:31:55 PM (Electronically Signed)
--- NOTE | 2020-12-26 14:38 | PCM.EKG ---
#1 Interpretation EKG Date: 12/26/20 Time: 12:59 Rhythm: A-Flutter Rate (Beats/Min): 126 [place]: Normal P-Wave: Present QRS: Normal ST-T: Normal QT: Normal Comparison: Change From Previous EKG (09/27/20 -> last EKG NSR) EKG Interpretation Comments: Atrial Flutter with RVR
[2020-12-26] MEDS ORDERED: Diltiazem 25 MG/5 ML SDV IVPUSH ONE ×2 (14:42→15:32)
[2020-12-26] MEDS ORDERED: Diltiazem 180 MG Cap.CD PO ONE (15:54)
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
[2020-12-26] MEDS ORDERED: Nicotine 14 MG/24 Hr Patch TRDERM ONE (17:29)
== END 2020-12-26 18:12 | disposition left against medical advice (07) ==
LOC: MW.ED 12:57 → UNDOADMOB 16:44 → MW.MS 16:44 → UNDODISOB 21:02
DX: I48.92 Unspecified atrial flutter (principal); I10 Essential (primary) hypertension; I25.2 Old myocardial infarction; J44.9 Chronic obstructive pulmonary disease, unspecified; Z72.0 Tobacco use; Z88.0 Allergy status to penicillin; Z79.01 Long term (current) use of anticoagulants; Z79.899 Other long term (current) drug therapy; Z20.822 Contact with and (suspected) exposure to COVID-19; V19.9XXA Pedal cyclist (driver) (passenger) injured in unspecified traffic accident, initial encounter
CPT/HCPCS: 36415; 71045; 73060; 80053; 83735; 83880; 84484; 85025; 87635; 93005; 94640; 96374; 96375; 96376; 99285; A9270; J2270; J3490; J7120; J7620-GY; U0002

== ENCOUNTER 2020-12-26 22:26 | Inpatient (IN) | payer OTHER, MEDICAID ==
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
[2020-12-26 23:34] LABS: BLOOD UREA NITROGEN,BUN 19 mg/dL (7.0-18.0); CARBON DIOXIDE,CO2 26.7 mmol/L (21.0-32.0); CHLORIDE,CL 105 mmol/L (98-107); GLUCOSE RANDOM 113 mg/dL (74-106); LIPASE 90 U/L (73-393); POTASSIUM,K 3.9 mmol/L (3.5-5.1); SODIUM,NA 141 mmol/L (136-148)
[2020-12-26] MEDS ORDERED: Thiamine 200 MG/2 ML MDV IVPUSH ONE (23:53)
[2020-12-26] MEDS ORDERED: Folic Acid 1 MG Tab PO ONE (23:53)
[2020-12-26] MEDS ORDERED: Lactated Ringers 1,000 ML IV ONE (23:58)
[2020-12-27] MEDS ORDERED: Iopamidol 755 Mg/ML 100 ML Bottle IVPUSH ONE (01:11)
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
[2020-12-27] MEDS ORDERED: Diltiazem 25 MG/5 ML SDV IVPUSH ONE (01:38)
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
[2020-12-27] MEDS ORDERED: Albuterol/Ipratropium 3.0-0.5 MG/3 ML Neb Soln NEB PRN (06:37)
[2020-12-27] MEDS: Sodium Chloride 0.9% 1,000 ML IV SCH ×2 (07:18→17:51)
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
[2020-12-27 07:56] LABS: BLOOD UREA NITROGEN,BUN 17 mg/dL (7.0-18.0); CARBON DIOXIDE,CO2 28.5 mmol/L (21.0-32.0); CHLORIDE,CL 106 mmol/L (98-107); GLUCOSE RANDOM 109 mg/dL (74-106); POTASSIUM,K 4.2 mmol/L (3.5-5.1); SODIUM,NA 142 mmol/L (136-148)
[2020-12-27] MEDS ORDERED: Thiamine 100 MG in Sodium Chloride 0.9% 100 ML IV SCH (09:00)
[2020-12-27] MEDS ORDERED: Diltiazem 180 MG Cap.CD PO SCH (09:00)
[2020-12-27] MEDS: Folic Acid 50 MG/10 ML MDV IV SCH (09:22)
[2020-12-27] MEDS: Pantoprazole 40 MG in Sodium Chloride 0.9% 10 ML IV SCH (09:23)
[2020-12-27] MEDS: Morphine 4 MG/ML Syringe IVPUSH PRN ×2 (09:32→16:44)
[2020-12-27] MEDS: Thiamine 200 MG/2 ML MDV IVPUSH SCH (09:33)
[2020-12-27] MEDS: oxyCODONE 5 MG Tab PO PRN ×2 (10:55→14:56)
[2020-12-27] MEDS: Diltiazem 25 MG/5 ML SDV IVPUSH PRN ×2 (11:56→18:27)
[2020-12-27] MEDS: LORazepam 2 MG/ML SDV IVPUSH PRN ×3 (16:55→23:48)
[2020-12-27] MEDS: Diazepam 5 MG Tab PO SCH ×2 (17:45→22:26)
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
[2020-12-27] MEDS ORDERED: Diltiazem 100 MG in Sodium Chloride 0.9% 100 ML IV SCH (19:45)
[2020-12-27] MEDS ORDERED: Digoxin 500 MCG/2 ML Amp IVPUSH ONE (20:30)
--- NOTE | 2020-12-27 20:39 | PCM.PN ---
- General Info Date of Service: 12/27/20 - Review of Systems Systems Review Comment:: patient had siezure on floor which resolved quickly, patient states chest pain has improved. - Patient Data Vitals - Most Recent: Last Vital Signs Temp 36.8 C 12/27/20 16:00 Pulse 138 H 12/27/20 16:00 Resp 14 12/27/20 19:00 BP 155/101 H 12/27/20 19:00 Pulse Ox 92 L 12/27/20 19:00 Weight - Most Recent: 78.608 kg I&O - Last 24 Hours: Intake & Output 12/27/20 12/27/20 12/27/20 06:59 14:59 22:59 Intake Total 1500 Output Total 2200 Balance -700 Lab Results Last 24 Hours: Laboratory Results - last 24 hr 12/26/20 12/26/20 12/26/20 Range/Units 22:50 22:50 22:50 WBC 8.30 (4.0-11.0) K/uL RBC 4.80 (4.50-5.90) M/uL Hgb 16.3 (13.0-17.0) g/dL Hct 46.3 (38.0-50.0) % MCV 96.5 (80.0-98.0) fL MCH 34.0 H (27.0-32.0) pg MCHC 35.2 (31.0-37.0) g/dL RDW Std Deviation 45.8 (28.0-62.0) fl RDW Coeff of Maria C 13 (11.0-15.0) % Plt Count 99 L (150-400) K/uL MPV 10.70 (7.40-12.00) fL Neut % (Auto) 57.3 (48.0-80.0) % Lymph % (Auto) 34.5 (16.0-40.0) % Perry % (Auto) 5.4 (0.0-15.0) % Eos % (Auto) 2.2 (0.0-7.0) % Baso % (Auto) 0.6 (0.0-1.5) % Neut # (Auto) 4.8 (1.4-5.7) K/uL Lymph # (Auto) 2.9 H (0.6-2.4) K/uL Perry # (Auto) 0.5 (0.0-0.8) K/uL Eos # (Auto) 0.2 (0.0-0.7) K/uL Baso # (Auto) 0.1 (0.0-0.1) K/uL Nucleated RBC % 0.0 /100WBC Nucleated RBCs # 0 K/uL INR APTT 25.2 (18.6-31.3) SEC Sodium (136-148) mmol/L Potassium (3.5-5.1) mmol/L Chloride (98-107) mmol/L Carbon Dioxide (21.0-32.0) mmol/L BUN (7.0-18.0) mg/dL Creatinine (0.8-1.3) mg/dL Est Cr Clr Drug Dosing mL/min Estimated GFR (MDRD) ml/min Glucose (74-106) mg/dL Lactic Acid (0.4-2.0) mmol/L Calcium (8.5-10.1) mg/dL Phosphorus (2.6-4.7) mg/dL Magnesium (1.8-2.4) mg/dL Total Bilirubin (0.2-1.0) mg/dL AST (15-37) IU/L ALT (14-63) IU/L Alkaline Phosphatase (46-116) U/L Troponin I < 0.050 (0.000-0.056) ng/mL Total Protein (6.4-8.2) g/dL Albumin (3.4-5.0) g/dL Globulin (2.6-4.0) g/dL Albumin/Globulin Ratio (0.9-1.6) Lipase (73-393) U/L Ethyl Alcohol mg/dL 12/26/20 12/26/20 12/26/20 Range/Units 22:50 22:50 23:29 WBC (4.0-11.0) K/uL RBC (4.50-5.90) M/uL Hgb (13.0-17.0) g/dL Hct (38.0-50.0) % MCV (80.0-98.0) fL MCH (27.0-32.0) pg MCHC (31.0-37.0) g/dL RDW Std Deviation (28.0-62.0) fl RDW Coeff of Maria C (11.0-15.0) % Plt Count (150-400) K/uL MPV (7.40-12.00) fL Neut % (Auto) (48.0-80.0) % Lymph % (Auto) (16.0-40.0) % Perry % (Auto) (0.0-15.0) % Eos % (Auto) (0.0-7.0) % Baso % (Auto) (0.0-1.5) % Neut # (Auto) (1.4-5.7) K/uL Lymph # (Auto) (0.6-2.4) K/uL Perry # (Auto) (0.0-0.8) K/uL Eos # (Auto) (0.0-0.7) K/uL Baso # (Auto) (0.0-0.1) K/uL Nucleated RBC % /100WBC Nucleated RBCs # K/uL INR APTT (18.6-31.3) SEC Sodium 141 (136-148) mmol/L Potassium 3.9 (3.5-5.1) mmol/L Chloride 105 (98-107) mmol/L Carbon Dioxide 26.7 (21.0-32.0) mmol/L BUN 19 H (7.0-18.0) mg/dL Creatinine 1.0 (0.8-1.3) mg/dL Est Cr Clr Drug Dosing 95.25 mL/min Estimated GFR (MDRD) > 60.0 ml/min Glucose 113 H (74-106) mg/dL Lactic Acid 1.9 (0.4-2.0) mmol/L Calcium 8.7 (8.5-10.1) mg/dL Phosphorus (2.6-4.7) mg/dL Magnesium (1.8-2.4) mg/dL Total Bilirubin 0.6 (0.2-1.0) mg/dL AST 83 H (15-37) IU/L ALT 81 H (14-63) IU/L Alkaline Phosphatase 110 (46-116) U/L Troponin I (0.000-0.056) ng/mL Total Protein 7.5 (6.4-8.2) g/dL Albumin 3.6 (3.4-5.0) g/dL Globulin 3.9 (2.6-4.0) g/dL Albumin/Globulin Ratio 0.9 (0.9-1.6) Lipase 90 (73-393) U/L Ethyl Alcohol 347 mg/dL 12/27/20 12/27/20 12/27/20 Range/Units 07:23 07:23 07:23 WBC 6.05 (4.0-11.0) K/uL RBC 4.50 (4.50-5.90) M/uL Hgb 15.1 (13.0-17.0) g/dL Hct 43.4 (38.0-50.0) % MCV 96.4 (80.0-98.0) fL MCH 33.6 H (27.0-32.0) pg MCHC 34.8 (31.0-37.0) g/dL RDW Std Deviation 45.6 (28.0-62.0) fl RDW Coeff of Maria C 13 (11.0-15.0) % Plt Count 84 L (150-400) K/uL MPV 11.00 (7.40-12.00) fL Neut % (Auto) 56.9 (48.0-80.0) % Lymph % (Auto) 32.4 (16.0-40.0) % Perry % (Auto) 7.8 (0.0-15.0) % Eos % (Auto) 2.6 (0.0-7.0) % Baso % (Auto) 0.3 (0.0-1.5) % Neut # (Auto) 3.4 (1.4-5.7) K/uL Lymph # (Auto) 2.0 (0.6-2.4) K/uL Perry # (Auto) 0.5 (0.0-0.8) K/uL Eos # (Auto) 0.2 (0.0-0.7) K/uL Baso # (Auto) 0.0 (0.0-0.1) K/uL Nucleated RBC % 0.0 /100WBC Nucleated RBCs # 0 K/uL INR APTT (18.6-31.3) SEC Sodium 142 (136-148) mmol/L Potassium 4.2 (3.5-5.1) mmol/L Chloride 106 (98-107) mmol/L Carbon Dioxide 28.5 (21.0-32.0) mmol/L BUN 17 (7.0-18.0) mg/dL Creatinine 0.9 (0.8-1.3) mg/dL Est Cr Clr Drug Dosing 101.90 mL/min Estimated GFR (MDRD) > 60.0 ml/min Glucose 109 H (74-106) mg/dL Lactic Acid (0.4-2.0) mmol/L Calcium 7.6 L (8.5-10.1) mg/dL Phosphorus 3.6 (2.6-4.7) mg/dL Magnesium 1.8 (1.8-2.4) mg/dL Total Bilirubin 0.7 (0.2-1.0) mg/dL AST 70 H (15-37) IU/L ALT 66 H (14-63) IU/L Alkaline Phosphatase 94 (46-116) U/L Troponin I < 0.050 (0.000-0.056) ng/mL Total Protein 6.8 (6.4-8.2) g/dL Albumin 3.1 L (3.4-5.0) g/dL Globulin 3.7 (2.6-4.0) g/dL Albumin/Globulin Ratio 0.8 L (0.9-1.6) Lipase (73-393) U/L Ethyl Alcohol mg/dL 12/27/20 Range/Units 07:44 WBC (4.0-11.0) K/uL RBC (4.50-5.90) M/uL Hgb (13.0-17.0) g/dL Hct (38.0-50.0) % MCV (80.0-98.0) fL MCH (27.0-32.0) pg MCHC (31.0-37.0) g/dL RDW Std Deviation (28.0-62.0) fl RDW Coeff of Maria C (11.0-15.0) % Plt Count (150-400) K/uL MPV (7.40-12.00) fL Neut % (Auto) (48.0-80.0) % Lymph % (Auto) (16.0-40.0) % Perry % (Auto) (0.0-15.0) % Eos % (Auto) (0.0-7.0) % Baso % (Auto) (0.0-1.5) % Neut # (Auto) (1.4-5.7) K/uL Lymph # (Auto) (0.6-2.4) K/uL Perry # (Auto) (0.0-0.8) K/uL Eos # (Auto) (0.0-0.7) K/uL Baso # (Auto) (0.0-0.1) K/uL Nucleated RBC % /100WBC Nucleated RBCs # K/uL INR 1.17 APTT (18.6-31.3) SEC Sodium (136-148) mmol/L Potassium (3.5-5.1) mmol/L Chloride (98-107) mmol/L Carbon Dioxide (21.0-32.0) mmol/L BUN (7.0-18.0) mg/dL Creatinine (0.8-1.3) mg/dL Est Cr Clr Drug Dosing mL/min Estimated GFR (MDRD) ml/min Glucose (74-106) mg/dL Lactic Acid (0.4-2.0) mmol/L Calcium (8.5-10.1) mg/dL Phosphorus (2.6-4.7) mg/dL Magnesium (1.8-2.4) mg/dL Total Bilirubin (0.2-1.0) mg/dL AST (15-37) IU/L ALT (14-63) IU/L Alkaline Phosphatase (46-116) U/L Troponin I (0.000-0.056) ng/mL Total Protein (6.4-8.2) g/dL Albumin (3.4-5.0) g/dL Globulin (2.6-4.0) g/dL Albumin/Globulin Ratio (0.9-1.6) Lipase (73-393) U/L Ethyl Alcohol mg/dL Med Orders - Current: Current Medications Albuterol/Ipratropium (Albuterol/Ipratropium 3.0-0.5 Mg/3 Ml Neb Soln) 3 ml NEB Q6HRRT PRN PRN Reason: Shortness of Breath Diazepam (Diazepam 5 Mg Tab) 5 mg PO TID [facility] Last Admin: 12/27/20 17:45 Dose: 5 mg Documented by: Diltiazem HCl (Diltiazem 25 Mg/5 Ml Sdv) 10 mg IVPUSH Q3H PRN PRN Reason: HR above 100 Last Admin: 12/27/20 18:27 Dose: 10 mg Documented by: Diltiazem HCl (Diltiazem Ir 30 Mg Tab) 30 mg PO Q6HR [facility] Folic Acid (Folic Acid 50 Mg/10 Ml Mdv) 1 mg IV DAILY [facility] Last Admin: 12/27/20 09:22 Dose: 1 mg Documented by: Pantoprazole Sodium 40 mg/ (Sodium Chloride) 10 mls @ 300 mls/hr IV DAILY [facility] Last Admin: 12/27/20 09:23 Dose: 300 mls/hr Documented by: Diltiazem HCl 100 mg/ Sodium (Chloride) 100 mls @ 5 mls/hr IV NOW [facility]; Protocol Last Admin: 12/27/20 19:39 Dose: 5 mg/hr, 5 mls/hr Documented by: Lorazepam (Lorazepam 2 Mg/Ml Sdv) 1 mg IVPUSH Q4H PRN; Protocol PRN Reason: Withdrawal Symptoms Last Admin: 12/27/20 19:10 Dose: 2 mg Documented by: Morphine Sulfate (Morphine 4 Mg/Ml Syringe) 4 mg IVPUSH Q4H PRN PRN Reason: Pain Last Admin: 12/27/20 16:44 Dose: 4 mg Documented by: Oxycodone HCl (Oxycodone 5 Mg Tab) 5 mg PO Q4H PRN PRN Reason: Pain Last Admin: 12/27/20 14:56 Dose: 5 mg Documented by: Thiamine HCl (Thiamine 200 Mg/2 Ml Mdv) 100 mg IVPUSH DAILY [facility] Last Admin: 12/27/20 09:33 Dose: 100 mg Documented by: Discontinued Medications Digoxin (Digoxin 500 Mcg/2 Ml Amp) 250 mcg IVPUSH ONETIME ONE Stop: 12/27/20 20:31 Diltiazem HCl (Diltiazem 25 Mg/5 Ml Sdv) 20 mg IVPUSH ONETIME ONE Stop: 12/27/20 01:39 Last Admin: 12/27/20 02:02 Dose: 20 mg Documented by: Diltiazem HCl (Diltiazem 180 Mg Cap.Cd) 180 mg PO DAILY [facility] Last Admin: 12/27/20 09:21 Dose: 180 mg Documented by: Folic Acid (Folic Acid 1 Mg Tab) 1 mg PO ONETIME ONE Stop: 12/26/20 23:54 Last Admin: 12/27/20 00:08 Dose: 1 mg Documented by: Lactated Ringer's (Ringers, Lactated) 1,000 mls @ 999 mls/hr IV .BOLUS ONE Stop: 12/27/20 00:58 Last Admin: 12/27/20 00:06 Dose: 999 mls/hr Documented by: Sodium Chloride (Normal Saline) 1,000 mls @ 125 mls/hr IV ASDIRECTED BRENT Last Admin: 12/27/20 17:51 Dose: 125 mls/hr Documented by: Iopamidol (Iopamidol 755 Mg/Ml 100 Ml Bottle) 100 ml IVPUSH ONETIME ONE Stop: 12/27/20 01:12 Last Admin: 12/27/20 01:12 Dose: 100 ml Documented by: Thiamine HCl (Thiamine 200 Mg/2 Ml Mdv) 100 mg IVPUSH ONETIME ONE Stop: 12/26/20 23:54 Last Admin: 12/27/20 00:07 Dose: 100 mg Documented by: - Exam General: Alert, Cooperative Lungs: Clear to Auscultation, Normal Respiratory Effort Cardiovascular: Irregular Rhythm, Tachycardia GI/Abdominal Exam: Normal Bowel Sounds, Soft, Non-Tender Extremities: Non-Tender, No Pedal Edema Skin: Warm, Dry, Intact Neurological: No New Focal Deficit - Patient Data Lab Results Last 24 hrs: Laboratory Results - last 24 hr 12/26/20 12/26/20 12/26/20 Range/Units 22:50 22:50 22:50 WBC 8.30 (4.0-11.0) K/uL RBC 4.80 (4.50-5.90) M/uL Hgb 16.3 (13.0-17.0) g/dL Hct 46.3 (38.0-50.0) % MCV 96.5 (80.0-98.0) fL MCH 34.0 H (27.0-32.0) pg MCHC 35.2 (31.0-37.0) g/dL RDW Std Deviation 45.8 (28.0-62.0) fl RDW Coeff of Maria C 13 (11.0-15.0) % Plt Count 99 L (150-400) K/uL MPV 10.70 (7.40-12.00) fL Neut % (Auto) 57.3 (48.0-80.0) % Lymph % (Auto) 34.5 (16.0-40.0) % Perry % (Auto) 5.4 (0.0-15.0) % Eos % (Auto) 2.2 (0.0-7.0) % Baso % (Auto) 0.6 (0.0-1.5) % Neut # (Auto) 4.8 (1.4-5.7) K/uL Lymph # (Auto) 2.9 H (0.6-2.4) K/uL Perry # (Auto) 0.5 (0.0-0.8) K/uL Eos # (Auto) 0.2 (0.0-0.7) K/uL Baso # (Auto) 0.1 (0.0-0.1) K/uL Nucleated RBC % 0.0 /100WBC Nucleated RBCs # 0 K/uL INR APTT 25.2 (18.6-31.3) SEC Sodium (136-148) mmol/L Potassium (3.5-5.1) mmol/L Chloride (98-107) mmol/L Carbon Dioxide (21.0-32.0) mmol/L BUN (7.0-18.0) mg/dL Creatinine (0.8-1.3) mg/dL Est Cr Clr Drug Dosing mL/min Estimated GFR (MDRD) ml/min Glucose (74-106) mg/dL Lactic Acid (0.4-2.0) mmol/L Calcium (8.5-10.1) mg/dL Phosphorus (2.6-4.7) mg/dL Magnesium (1.8-2.4) mg/dL Total Bilirubin (0.2-1.0) mg/dL AST (15-37) IU/L ALT (14-63) IU/L Alkaline Phosphatase (46-116) U/L Troponin I < 0.050 (0.000-0.056) ng/mL Total Protein (6.4-8.2) g/dL Albumin (3.4-5.0) g/dL Globulin (2.6-4.0) g/dL Albumin/Globulin Ratio (0.9-1.6) Lipase (73-393) U/L Ethyl Alcohol mg/dL 12/26/20 12/26/20 12/26/20 Range/Units 22:50 22:50 23:29 WBC (4.0-11.0) K/uL RBC (4.50-5.90) M/uL Hgb (13.0-17.0) g/dL Hct (38.0-50.0) % MCV (80.0-98.0) fL MCH (27.0-32.0) pg MCHC (31.0-37.0) g/dL RDW Std Deviation (28.0-62.0) fl RDW Coeff of Maria C (11.0-15.0) % Plt Count (150-400) K/uL MPV (7.40-12.00) fL Neut % (Auto) (48.0-80.0) % Lymph % (Auto) (16.0-40.0) % Perry % (Auto) (0.0-15.0) % Eos % (Auto) (0.0-7.0) % Baso % (Auto) (0.0-1.5) % Neut # (Auto) (1.4-5.7) K/uL Lymph # (Auto) (0.6-2.4) K/uL Perry # (Auto) (0.0-0.8) K/uL Eos # (Auto) (0.0-0.7) K/uL Baso # (Auto) (0.0-0.1) K/uL Nucleated RBC % /100WBC Nucleated RBCs # K/uL INR APTT (18.6-31.3) SEC Sodium 141 (136-148) mmol/L Potassium 3.9 (3.5-5.1) mmol/L Chloride 105 (98-107) mmol/L Carbon Dioxide 26.7 (21.0-32.0) mmol/L BUN 19 H (7.0-18.0) mg/dL Creatinine 1.0 (0.8-1.3) mg/dL Est Cr Clr Drug Dosing 95.25 mL/min Estimated GFR (MDRD) > 60.0 ml/min Glucose 113 H (74-106) mg/dL Lactic Acid 1.9 (0.4-2.0) mmol/L Calcium 8.7 (8.5-10.1) mg/dL Phosphorus (2.6-4.7) mg/dL Magnesium (1.8-2.4) mg/dL Total Bilirubin 0.6 (0.2-1.0) mg/dL AST 83 H (15-37) IU/L ALT 81 H (14-63) IU/L Alkaline Phosphatase 110 (46-116) U/L Troponin I (0.000-0.056) ng/mL Total Protein 7.5 (6.4-8.2) g/dL Albumin 3.6 (3.4-5.0) g/dL Globulin 3.9 (2.6-4.0) g/dL Albumin/Globulin Ratio 0.9 (0.9-1.6) Lipase 90 (73-393) U/L Ethyl Alcohol 347 mg/dL 12/27/20 12/27/20 12/27/20 Range/Units 07:23 07:23 07:23 WBC 6.05 (4.0-11.0) K/uL RBC 4.50 (4.50-5.90) M/uL Hgb 15.1 (13.0-17.0) g/dL Hct 43.4 (38.0-50.0) % MCV 96.4 (80.0-98.0) fL MCH 33.6 H (27.0-32.0) pg MCHC 34.8 (31.0-37.0) g/dL RDW Std Deviation 45.6 (28.0-62.0) fl RDW Coeff of Maria C 13 (11.0-15.0) % Plt Count 84 L (150-400) K/uL MPV 11.00 (7.40-12.00) fL Neut % (Auto) 56.9 (48.0-80.0) % Lymph % (Auto) 32.4 (16.0-40.0) % Perry % (Auto) 7.8 (0.0-15.0) % Eos % (Auto) 2.6 (0.0-7.0) % Baso % (Auto) 0.3 (0.0-1.5) % Neut # (Auto) 3.4 (1.4-5.7) K/uL Lymph # (Auto) 2.0 (0.6-2.4) K/uL Perry # (Auto) 0.5 (0.0-0.8) K/uL Eos # (Auto) 0.2 (0.0-0.7) K/uL Baso # (Auto) 0.0 (0.0-0.1) K/uL Nucleated RBC % 0.0 /100WBC Nucleated RBCs # 0 K/uL INR APTT (18.6-31.3) SEC Sodium 142 (136-148) mmol/L Potassium 4.2 (3.5-5.1) mmol/L Chloride 106 (98-107) mmol/L Carbon Dioxide 28.5 (21.0-32.0) mmol/L BUN 17 (7.0-18.0) mg/dL Creatinine 0.9 (0.8-1.3) mg/dL Est Cr Clr Drug Dosing 101.90 mL/min Estimated GFR (MDRD) > 60.0 ml/min Glucose 109 H (74-106) mg/dL Lactic Acid (0.4-2.0) mmol/L Calcium 7.6 L (8.5-10.1) mg/dL Phosphorus 3.6 (2.6-4.7) mg/dL Magnesium 1.8 (1.8-2.4) mg/dL Total Bilirubin 0.7 (0.2-1.0) mg/dL AST 70 H (15-37) IU/L ALT 66 H (14-63) IU/L Alkaline Phosphatase 94 (46-116) U/L Troponin I < 0.050 (0.000-0.056) ng/mL Total Protein 6.8 (6.4-8.2) g/dL Albumin 3.1 L (3.4-5.0) g/dL Globulin 3.7 (2.6-4.0) g/dL Albumin/Globulin Ratio 0.8 L (0.9-1.6) Lipase (73-393) U/L Ethyl Alcohol mg/dL 12/27/20 Range/Units 07:44 WBC (4.0-11.0) K/uL RBC (4.50-5.90) M/uL Hgb (13.0-17.0) g/dL Hct (38.0-50.0) % MCV (80.0-98.0) fL MCH (27.0-32.0) pg MCHC (31.0-37.0) g/dL RDW Std Deviation (28.0-62.0) fl RDW Coeff of Maria C (11.0-15.0) % Plt Count (150-400) K/uL MPV (7.40-12.00) fL Neut % (Auto) (48.0-80.0) % Lymph % (Auto) (16.0-40.0) % Perry % (Auto) (0.0-15.0) % Eos % (Auto) (0.0-7.0) % Baso % (Auto) (0.0-1.5) % Neut # (Auto) (1.4-5.7) K/uL Lymph # (Auto) (0.6-2.4) K/uL Perry # (Auto) (0.0-0.8) K/uL Eos # (Auto) (0.0-0.7) K/uL Baso # (Auto) (0.0-0.1) K/uL Nucleated RBC % /100WBC Nucleated RBCs # K/uL INR 1.17 APTT (18.6-31.3) SEC Sodium (136-148) mmol/L Potassium (3.5-5.1) mmol/L Chloride (98-107) mmol/L Carbon Dioxide (21.0-32.0) mmol/L BUN (7.0-18.0) mg/dL Creatinine (0.8-1.3) mg/dL Est Cr Clr Drug Dosing mL/min Estimated GFR (MDRD) ml/min Glucose (74-106) mg/dL Lactic Acid (0.4-2.0) mmol/L Calcium (8.5-10.1) mg/dL Phosphorus (2.6-4.7) mg/dL Magnesium (1.8-2.4) mg/dL Total Bilirubin (0.2-1.0) mg/dL AST (15-37) IU/L ALT (14-63) IU/L Alkaline Phosphatase (46-116) U/L Troponin I (0.000-0.056) ng/mL Total Protein (6.4-8.2) g/dL Albumin (3.4-5.0) g/dL Globulin (2.6-4.0) g/dL Albumin/Globulin Ratio (0.9-1.6) Lipase (73-393) U/L Ethyl Alcohol mg/dL Result Diagrams: 12/27/20 07:23 12/27/20 07:23 Sepsis Event Note - Evaluation Sepsis Screening Result: No Definite Risk - Focused Exam Vital Signs: Vital Signs Temp Pulse Resp BP Pulse Ox 12/27/20 19:00 14 155/101 H 92 L 12/27/20 18:45 91 L 12/27/20 18:30 94 L 12/27/20 18:00 20 152/109 H 93 L 12/27/20 17:35 16 143/97 H 96 12/27/20 16:00 36.8 C 138 H 18 137/91 H 93 L 12/27/20 11:53 36.7 C 135 H 18 131/85 95 - Problem List & Annotations (1) Atrial flutter SNOMED Code(s): 2292239 Code(s): I48.92 - UNSPECIFIED ATRIAL FLUTTER Status: Acute Current Visit: Yes (2) Chronic alcohol use SNOMED Code(s): 382724 Code(s): Z72.89 - OTHER PROBLEMS RELATED TO LIFESTYLE Status: Acute Current Visit: Yes (3) Left rib fracture SNOMED Code(s): 98049198 Code(s): S22.32XA - FRACTURE OF ONE RIB, LEFT SIDE, INIT FOR CLOS FX Status: Acute Current Visit: Yes Qualifiers: Rib fracture type: single rib Fracture type: closed (4) Chest pain SNOMED Code(s): 84076785 Code(s): R07.9 - CHEST PAIN, UNSPECIFIED Status: Acute Current Visit: No (5) Alcohol withdrawal seizure SNOMED Code(s): 990975375 Code(s): F10.239 - ALCOHOL DEPENDENCE WITH WITHDRAWAL, UNSPECIFIED; R56.9 - UNSPECIFIED CONVULSIONS Status: Acute Current Visit: Yes - Problem List Review Problem List Initiated/Reviewed/Updated: Yes - My Orders Last 24 Hours: My Active Orders 12/27/20 03:17 Telemetry Monitoring [Cardiac Monitoring] [RC] Q8H 12/27/20 06:12 Admission Status [Patient Status] [ADT] Routine 12/27/20 Breakfast Regular Diet [DIET] 12/27/20 06:33 LORazepam [Ativan] 1 mg IVPUSH Q4H PRN 12/27/20 06:35 Morphine 4 mg IVPUSH Q4H PRN 12/27/20 06:36 oxyCODONE 5 mg PO Q4H PRN 12/27/20 06:37 RT Aerosol Therapy [RC] ASDIRECTED RT Incentive Spirometry [RC] ASDIRECTED Albuterol/Ipratropium [DuoNeb 3.0-0.5 MG/3 ML] 3 ml NEB Q6HRRT PRN 12/27/20 07:36 PT Evaluation and Treatment [CONS] Routine 12/27/20 09:00 Folic Acid 1 mg IV DAILY Pantoprazole [ProTONIX IV] 40 mg Sodium Chloride 0.9% [Normal Saline] 10 ml IV DAILY Thiamine [Vitamin B-1] 100 mg IVPUSH DAILY 12/27/20 09:53 Oxygen Therapy [RC] PRN VTE/DVT Education [RC] PER UNIT ROUTINE Vital Signs [RC] Q1H Sequential Compression Device [OM.PC] Per Unit Routine Resuscitation Status Routine 12/27/20 09:54 Antiembolic Devices [RC] PER UNIT ROUTINE 12/27/20 11:39 Diltiazem 10 mg IVPUSH Q3H PRN 12/27/20 17:16 diazePAM [Valium.] 5 mg PO TID 12/27/20 17:19 Transfer Patient (Change bed) [ADT] Routine 12/27/20 19:45 Diltiazem [Cardizem] 100 mg Sodium Chloride 0.9% [Normal Saline] 100 ml IV NOW 12/27/20 20:30 Diltiazem IR [Cardizem] 30 mg PO Q6HR 12/28/20 05:11 CBC WITH AUTO DIFF [HEME] AM COMPREHENSIVE METABOLIC PN,CMP [CHEM] AM MAGNESIUM [CHEM] AM PHOSPHORUS [CHEM] AM - Plan Plan:: 55 yo male admitted for ETOH detox, a.fib with RVR, and rib fracture ETOH dependence: conintue CIWA protocol, prn Ativan, thiamin and folic acid, will add scheduled Valium due to seizure A.fib: still tachycardic despite oral diltiazem and IV pushes of dilatiazem will start dilatizem drip. rib fracture: continue pain control, encourage incentive spirometry dvt prophylaxis: due to history of possible GI bleed with place on SCDs.
[2020-12-27] MEDS ORDERED: Magnesium Sulfate/Water 2 GM/50 ML Premix Bag IV ONE (20:46)
[2020-12-27] MEDS: Diltiazem IR 30 MG Tab PO SCH (20:50)
[2020-12-27] MEDS ORDERED: Magnesium Sulfate/Water 50 ML IV ONE (21:00)
[2020-12-28] MEDS: Diltiazem IR 30 MG Tab PO SCH ×5 (00:49→23:05)
[2020-12-28] MEDS: LORazepam 2 MG/ML SDV IVPUSH PRN ×5 (02:06→20:04)
[2020-12-28] MEDS: oxyCODONE 5 MG Tab PO PRN (03:55)
[2020-12-28] MEDS: Diazepam 5 MG Tab PO SCH ×3 (05:06→22:44)
[2020-12-28] MEDS: Diltiazem 25 MG/5 ML SDV IVPUSH PRN (06:58)
[2020-12-28 07:11] LABS: BLOOD UREA NITROGEN,BUN 10 mg/dL (7.0-18.0); CARBON DIOXIDE,CO2 29.2 mmol/L (21.0-32.0); CHLORIDE,CL 102 mmol/L (98-107); GLUCOSE RANDOM 129 mg/dL (74-106); POTASSIUM,K 3.9 mmol/L (3.5-5.1); SODIUM,NA 137 mmol/L (136-148)
[2020-12-28] MEDS: Pantoprazole 40 MG in Sodium Chloride 0.9% 10 ML IV SCH (09:27)
[2020-12-28] MEDS: Folic Acid 50 MG/10 ML MDV IV SCH (09:28)
[2020-12-28] MEDS: Thiamine 200 MG/2 ML MDV IVPUSH SCH (09:28)
[2020-12-28] MEDS ORDERED: Digoxin 500 MCG/2 ML Amp IVPUSH ONE (09:29)
--- NOTE | 2020-12-28 09:33 | PCM.PN ---
- General Info Date of Service: 12/28/20 - Review of Systems Systems Review Comment:: reports pain in the side, - Patient Data Vitals - Most Recent: Last Vital Signs Temp 36.5 C 12/28/20 08:00 Pulse 140 H 12/27/20 20:50 Resp 14 12/28/20 09:00 BP 142/95 H 12/28/20 09:00 Pulse Ox 92 L 12/28/20 09:00 Weight - Most Recent: 71.9 kg I&O - Last 24 Hours: Intake & Output 12/27/20 12/28/20 12/28/20 22:59 06:59 14:59 Intake Total 1550 1280 Output Total 2200 2100 Balance -650 -820 Lab Results Last 24 Hours: Laboratory Results - last 24 hr 12/28/20 12/28/20 Range/Units 06:11 06:11 WBC 5.77 (4.0-11.0) K/uL RBC 4.67 (4.50-5.90) M/uL Hgb 15.5 (13.0-17.0) g/dL Hct 44.9 (38.0-50.0) % MCV 96.1 (80.0-98.0) fL MCH 33.2 H (27.0-32.0) pg MCHC 34.5 (31.0-37.0) g/dL RDW Std Deviation 44.2 (28.0-62.0) fl RDW Coeff of Maria C 13 (11.0-15.0) % Plt Count 62 L (150-400) K/uL MPV 12.10 H (7.40-12.00) fL Neut % (Auto) 66.9 (48.0-80.0) % Lymph % (Auto) 22.0 (16.0-40.0) % [place] % (Auto) 7.5 (0.0-15.0) % Eos % (Auto) 3.3 (0.0-7.0) % Baso % (Auto) 0.3 (0.0-1.5) % Neut # (Auto) 3.9 (1.4-5.7) K/uL Lymph # (Auto) 1.3 (0.6-2.4) K/uL [place] # (Auto) 0.4 (0.0-0.8) K/uL Eos # (Auto) 0.2 (0.0-0.7) K/uL Baso # (Auto) 0.0 (0.0-0.1) K/uL Nucleated RBC % 0.0 /100WBC Nucleated RBCs # 0 K/uL Sodium 137 (136-148) mmol/L Potassium 3.9 (3.5-5.1) mmol/L Chloride 102 (98-107) mmol/L Carbon Dioxide 29.2 (21.0-32.0) mmol/L BUN 10 (7.0-18.0) mg/dL Creatinine 0.8 (0.8-1.3) mg/dL Est Cr Clr Drug Dosing 104.85 mL/min Estimated GFR (MDRD) > 60.0 ml/min Glucose 129 H (74-106) mg/dL Calcium 8.5 (8.5-10.1) mg/dL Phosphorus 2.6 (2.6-4.7) mg/dL Magnesium 1.8 (1.8-2.4) mg/dL Total Bilirubin 1.9 H (0.2-1.0) mg/dL AST 65 H (15-37) IU/L ALT 65 H (14-63) IU/L Alkaline Phosphatase 108 (46-116) U/L Total Protein 7.0 (6.4-8.2) g/dL Albumin 3.1 L (3.4-5.0) g/dL Globulin 3.9 (2.6-4.0) g/dL Albumin/Globulin Ratio 0.8 L (0.9-1.6) Med Orders - Current: Current Medications Albuterol/Ipratropium (Albuterol/Ipratropium 3.0-0.5 Mg/3 Ml Neb Soln) 3 ml NEB Q6HRRT PRN PRN Reason: Shortness of Breath Diazepam (Diazepam 5 Mg Tab) 5 mg PO TID BRENT Last Admin: 12/28/20 05:06 Dose: 5 mg Documented by: Digoxin (Digoxin 500 Mcg/2 Ml Amp) 250 mcg IVPUSH ONETIME ONE Stop: 12/28/20 09:30 Diltiazem HCl (Diltiazem 25 Mg/5 Ml Sdv) 10 mg IVPUSH Q3H PRN PRN Reason: HR above 100 Last Admin: 12/28/20 06:58 Dose: 10 mg Documented by: Diltiazem HCl (Diltiazem Ir 30 Mg Tab) 45 mg PO Q6HR [facility] Folic Acid (Folic Acid 50 Mg/10 Ml Mdv) 1 mg IV DAILY [facility] Last Admin: 12/28/20 09:28 Dose: 1 mg Documented by: Pantoprazole Sodium 40 mg/ (Sodium Chloride) 10 mls @ 300 mls/hr IV DAILY [facility] Last Admin: 12/28/20 09:27 Dose: 300 mls/hr Documented by: Diltiazem HCl 100 mg/ Sodium (Chloride) 100 mls @ 5 mls/hr IV NOW [facility]; Protocol Last Titration: 12/27/20 23:28 Dose: 0 mg/hr, 0 mls/hr Documented by: Lorazepam (Lorazepam 2 Mg/Ml Sdv) 1 mg IVPUSH Q4H PRN; Protocol PRN Reason: Withdrawal Symptoms Last Admin: 12/28/20 02:06 Dose: 1 mg Documented by: Morphine Sulfate (Morphine 4 Mg/Ml Syringe) 4 mg IVPUSH Q4H PRN PRN Reason: Pain Last Admin: 12/27/20 16:44 Dose: 4 mg Documented by: Oxycodone HCl (Oxycodone 5 Mg Tab) 5 mg PO Q4H PRN PRN Reason: Pain Last Admin: 12/28/20 03:55 Dose: 5 mg Documented by: Thiamine HCl (Thiamine 200 Mg/2 Ml Mdv) 100 mg IVPUSH DAILY [facility] Last Admin: 12/28/20 09:28 Dose: 100 mg Documented by: Discontinued Medications Digoxin (Digoxin 500 Mcg/2 Ml Amp) 250 mcg IVPUSH ONETIME ONE Stop: 12/27/20 20:31 Last Admin: 12/27/20 20:50 Dose: 250 mcg Documented by: Diltiazem HCl (Diltiazem 25 Mg/5 Ml Sdv) 20 mg IVPUSH ONETIME ONE Stop: 12/27/20 01:39 Last Admin: 12/27/20 02:02 Dose: 20 mg Documented by: Diltiazem HCl (Diltiazem 180 Mg Cap.Cd) 180 mg PO DAILY [facility] Last Admin: 12/27/20 09:21 Dose: 180 mg Documented by: Diltiazem HCl (Diltiazem Ir 30 Mg Tab) 30 mg PO Q6HR [facility] Last Admin: 12/28/20 05:06 Dose: 30 mg Documented by: Folic Acid (Folic Acid 1 Mg Tab) 1 mg PO ONETIME ONE Stop: 12/26/20 23:54 Last Admin: 12/27/20 00:08 Dose: 1 mg Documented by: Lactated Ringer's (Ringers, Lactated) 1,000 mls @ 999 mls/hr IV .BOLUS ONE Stop: 12/27/20 00:58 Last Admin: 12/27/20 00:06 Dose: 999 mls/hr Documented by: Sodium Chloride (Normal Saline) 1,000 mls @ 125 mls/hr IV ASDIRECTED [facility] Last Admin: 12/27/20 17:51 Dose: 125 mls/hr Documented by: Magnesium Sulfate (Magnesium Sulfate In Water 2 Gm/50 Ml) 50 mls @ 50 mls/hr IV ONETIME ONE Stop: 12/27/20 21:59 Last Admin: 12/27/20 21:11 Dose: 50 mls/hr Documented by: Iopamidol (Iopamidol 755 Mg/Ml 100 Ml Bottle) 100 ml IVPUSH ONETIME ONE Stop: 12/27/20 01:12 Last Admin: 12/27/20 01:12 Dose: 100 ml Documented by: Magnesium Sulfate (Magnesium Sulfate/Water 2 Gm/50 Ml Premix Bag) 2 gm IV ONETIME ONE Stop: 12/27/20 20:47 Thiamine HCl (Thiamine 200 Mg/2 Ml Mdv) 100 mg IVPUSH ONETIME ONE Stop: 12/26/20 23:54 Last Admin: 12/27/20 00:07 Dose: 100 mg Documented by: - Exam General: Alert, Cooperative Lungs: Clear to Auscultation, Normal Respiratory Effort Cardiovascular: Irregular Rhythm, Tachycardia GI/Abdominal Exam: Normal Bowel Sounds, Soft, Non-Tender Extremities: Non-Tender, No Pedal Edema Skin: Warm, Dry, Intact - Patient Data Lab Results Last 24 hrs: Laboratory Results - last 24 hr 12/28/20 12/28/20 Range/Units 06:11 06:11 WBC 5.77 (4.0-11.0) K/uL RBC 4.67 (4.50-5.90) M/uL Hgb 15.5 (13.0-17.0) g/dL Hct 44.9 (38.0-50.0) % MCV 96.1 (80.0-98.0) fL MCH 33.2 H (27.0-32.0) pg MCHC 34.5 (31.0-37.0) g/dL RDW Std Deviation 44.2 (28.0-62.0) fl RDW Coeff of Maria C 13 (11.0-15.0) % Plt Count 62 L (150-400) K/uL MPV 12.10 H (7.40-12.00) fL Neut % (Auto) 66.9 (48.0-80.0) % Lymph % (Auto) 22.0 (16.0-40.0) % [place] % (Auto) 7.5 (0.0-15.0) % Eos % (Auto) 3.3 (0.0-7.0) % Baso % (Auto) 0.3 (0.0-1.5) % Neut # (Auto) 3.9 (1.4-5.7) K/uL Lymph # (Auto) 1.3 (0.6-2.4) K/uL [place] # (Auto) 0.4 (0.0-0.8) K/uL Eos # (Auto) 0.2 (0.0-0.7) K/uL Baso # (Auto) 0.0 (0.0-0.1) K/uL Nucleated RBC % 0.0 /100WBC Nucleated RBCs # 0 K/uL Sodium 137 (136-148) mmol/L Potassium 3.9 (3.5-5.1) mmol/L Chloride 102 (98-107) mmol/L Carbon Dioxide 29.2 (21.0-32.0) mmol/L BUN 10 (7.0-18.0) mg/dL Creatinine 0.8 (0.8-1.3) mg/dL Est Cr Clr Drug Dosing 104.85 mL/min Estimated GFR (MDRD) > 60.0 ml/min Glucose 129 H (74-106) mg/dL Calcium 8.5 (8.5-10.1) mg/dL Phosphorus 2.6 (2.6-4.7) mg/dL Magnesium 1.8 (1.8-2.4) mg/dL Total Bilirubin 1.9 H (0.2-1.0) mg/dL AST 65 H (15-37) IU/L ALT 65 H (14-63) IU/L Alkaline Phosphatase 108 (46-116) U/L Total Protein 7.0 (6.4-8.2) g/dL Albumin 3.1 L (3.4-5.0) g/dL Globulin 3.9 (2.6-4.0) g/dL Albumin/Globulin Ratio 0.8 L (0.9-1.6) Result Diagrams: 12/28/20 06:11 12/28/20 06:11 Sepsis Event Note - Evaluation Sepsis Screening Result: No Definite Risk - Focused Exam Vital Signs: Vital Signs Temp Resp BP Pulse Ox 12/28/20 09:00 14 142/95 H 92 L 12/28/20 08:00 36.5 C 14 148/87 H 93 L 12/28/20 07:00 14 154/79 H 92 L 12/28/20 06:00 14 146/90 H 94 L 12/28/20 05:00 14 143/99 H 93 L 12/28/20 04:00 36.4 C 15 141/93 H 94 L 12/28/20 03:00 15 146/95 H 94 L 12/28/20 02:00 19 152/87 H 92 L 12/28/20 01:00 15 134/85 94 L 12/28/20 00:00 36.6 C 17 136/86 93 L 12/27/20 23:00 15 134/93 H 96 12/27/20 22:00 14 125/81 95 - Problem List & Annotations (1) Atrial flutter SNOMED Code(s): 5368902 Code(s): I48.92 - UNSPECIFIED ATRIAL FLUTTER Status: Acute Current Visit: Yes (2) Chronic alcohol use SNOMED Code(s): 614918 Code(s): Z72.89 - OTHER PROBLEMS RELATED TO LIFESTYLE Status: Acute Current Visit: Yes (3) Left rib fracture SNOMED Code(s): 62037580 Code(s): S22.32XA - FRACTURE OF ONE RIB, LEFT SIDE, INIT FOR CLOS FX Status: Acute Current Visit: Yes Qualifiers: Rib fracture type: single rib Fracture type: closed (4) Chest pain SNOMED Code(s): 50687008 Code(s): R07.9 - CHEST PAIN, UNSPECIFIED Status: Acute Current Visit: No (5) Alcohol withdrawal seizure SNOMED Code(s): 207657585 Code(s): F10.239 - ALCOHOL DEPENDENCE WITH WITHDRAWAL, UNSPECIFIED; R56.9 - UNSPECIFIED CONVULSIONS Status: Acute Current Visit: Yes - Problem List Review Problem List Initiated/Reviewed/Updated: Yes - My Orders Last 24 Hours: My Active Orders 12/27/20 09:00 Folic Acid 1 mg IV DAILY Pantoprazole [ProTONIX IV] 40 mg Sodium Chloride 0.9% [Normal Saline] 10 ml IV DAILY Thiamine [Vitamin B-1] 100 mg IVPUSH DAILY 12/27/20 09:53 Oxygen Therapy [RC] PRN VTE/DVT Education [RC] PER UNIT ROUTINE Vital Signs [RC] Q1H Sequential Compression Device [OM.PC] Per Unit Routine Resuscitation Status Routine 12/27/20 09:54 Antiembolic Devices [RC] PER UNIT ROUTINE 12/27/20 11:39 Diltiazem 10 mg IVPUSH Q3H PRN 12/27/20 17:16 [id number] [Valium.] 5 mg PO TID 12/27/20 17:19 Transfer Patient (Change bed) [ADT] Routine 12/27/20 19:45 Diltiazem [Cardizem] 100 mg Sodium Chloride 0.9% [Normal Saline] 100 ml IV NOW 12/28/20 09:29 Digoxin [Lanoxin] 250 mcg IVPUSH ONETIME ONE 12/28/20 12:00 Diltiazem IR [Cardizem] 45 mg PO Q6HR - Plan Plan:: 55 yo male admitted for ETOH detox, a.fib with RVR, and rib fracture ETOH dependence: continue Valium TID, CIWA protocol with prn Ativan, thiamin and folic acid A.fib: diltiazem weaned off overnight, still tachycardic with exertion, will titrate up oral diltiazem rib fracture: continue pain control, encourage incentive spirometry dvt prophylaxis: due to history of possible GI bleed with place on SCDs.
[2020-12-28] MEDS: Morphine 4 MG/ML Syringe IVPUSH PRN (21:01)
[2020-12-29] MEDS: LORazepam 2 MG/ML SDV IVPUSH PRN ×4 (00:21→18:26)
[2020-12-29] MEDS: oxyCODONE 5 MG Tab PO PRN ×2 (01:43→09:34)
[2020-12-29] MEDS: Diltiazem IR 30 MG Tab PO SCH ×3 (05:49→17:26)
[2020-12-29] MEDS: Diazepam 5 MG Tab PO SCH ×2 (05:49→13:13)
[2020-12-29] MEDS: Morphine 4 MG/ML Syringe IVPUSH PRN ×2 (06:21→14:41)
[2020-12-29 06:45] LABS: BLOOD UREA NITROGEN,BUN 9 mg/dL (7.0-18.0); CARBON DIOXIDE,CO2 30.4 mmol/L (21.0-32.0); CHLORIDE,CL 102 mmol/L (98-107); GLUCOSE RANDOM 121 mg/dL (74-106); POTASSIUM,K 3.9 mmol/L (3.5-5.1); SODIUM,NA 139 mmol/L (136-148)
[2020-12-29] MEDS: Pantoprazole 40 MG in Sodium Chloride 0.9% 10 ML IV SCH (09:34)
[2020-12-29] MEDS: Thiamine 200 MG/2 ML MDV IVPUSH SCH (09:35)
[2020-12-29] MEDS: Folic Acid 50 MG/10 ML MDV IV SCH (09:35)
--- NOTE | 2020-12-29 17:21 | PCM.PN ---
- General Info Date of Service: 12/29/20 - Review of Systems Systems Review Comment:: chest pain controlled - Patient Data Vitals - Most Recent: Last Vital Signs Temp 36.8 C 12/29/20 16:00 Pulse 101 H 12/28/20 10:16 Resp 13 12/29/20 17:00 BP 119/83 12/29/20 17:00 Pulse Ox 95 12/29/20 17:00 Weight - Most Recent: 72 kg I&O - Last 24 Hours: Intake & Output 12/29/20 12/29/20 12/29/20 06:59 14:59 22:59 Intake Total 980 Balance 980 Lab Results Last 24 Hours: Laboratory Results - last 24 hr 12/29/20 12/29/20 Range/Units 05:45 05:45 WBC 6.89 (4.0-11.0) K/uL RBC 4.91 (4.50-5.90) M/uL Hgb 16.5 (13.0-17.0) g/dL Hct 47.7 (38.0-50.0) % MCV 97.1 (80.0-98.0) fL MCH 33.6 H (27.0-32.0) pg MCHC 34.6 (31.0-37.0) g/dL RDW Std Deviation 45.0 (28.0-62.0) fl RDW Coeff of Maria C 13 (11.0-15.0) % Plt Count 67 L (150-400) K/uL MPV 12.30 H (7.40-12.00) fL Neut % (Auto) 70.1 (48.0-80.0) % Lymph % (Auto) 20.6 (16.0-40.0) % [place] % (Auto) 5.8 (0.0-15.0) % Eos % (Auto) 3.2 (0.0-7.0) % Baso % (Auto) 0.3 (0.0-1.5) % Neut # (Auto) 4.8 (1.4-5.7) K/uL Lymph # (Auto) 1.4 (0.6-2.4) K/uL [place] # (Auto) 0.4 (0.0-0.8) K/uL Eos # (Auto) 0.2 (0.0-0.7) K/uL Baso # (Auto) 0.0 (0.0-0.1) K/uL Nucleated RBC % 0.0 /100WBC Nucleated RBCs # 0 K/uL Sodium 139 (136-148) mmol/L Potassium 3.9 (3.5-5.1) mmol/L Chloride 102 (98-107) mmol/L Carbon Dioxide 30.4 (21.0-32.0) mmol/L BUN 9 (7.0-18.0) mg/dL Creatinine 0.9 (0.8-1.3) mg/dL Est Cr Clr Drug Dosing 93.33 mL/min Estimated GFR (MDRD) > 60.0 ml/min Glucose 121 H (74-106) mg/dL Calcium 9.2 (8.5-10.1) mg/dL Phosphorus 3.6 (2.6-4.7) mg/dL Magnesium 1.8 (1.8-2.4) mg/dL Total Bilirubin 1.6 H (0.2-1.0) mg/dL AST 51 H (15-37) IU/L ALT 60 (14-63) IU/L Alkaline Phosphatase 121 H (46-116) U/L Total Protein 7.6 (6.4-8.2) g/dL Albumin 3.3 L (3.4-5.0) g/dL Globulin 4.3 H (2.6-4.0) g/dL Albumin/Globulin Ratio 0.8 L (0.9-1.6) Med Orders - Current: Current Medications Albuterol/Ipratropium (Albuterol/Ipratropium 3.0-0.5 Mg/3 Ml Neb Soln) 3 ml NEB Q6HRRT PRN PRN Reason: Shortness of Breath Diazepam (Diazepam 5 Mg Tab) 5 mg PO TID BRENT Last Admin: 12/29/20 13:13 Dose: 5 mg Documented by: Diltiazem HCl (Diltiazem 25 Mg/5 Ml Sdv) 10 mg IVPUSH Q3H PRN PRN Reason: HR above 100 Last Admin: 12/28/20 06:58 Dose: 10 mg Documented by: Diltiazem HCl (Diltiazem Ir 30 Mg Tab) 45 mg PO Q6HR [facility]ENT Last Admin: 12/29/20 12:17 Dose: 45 mg Documented by: Folic Acid (Folic Acid 50 Mg/10 Ml Mdv) 1 mg IV DAILY [facility] Last Admin: 12/29/20 09:35 Dose: 1 mg Documented by: Pantoprazole Sodium 40 mg/ (Sodium Chloride) 10 mls @ 300 mls/hr IV DAILY [facility] Last Admin: 12/29/20 09:34 Dose: 300 mls/hr Documented by: Diltiazem HCl 100 mg/ Sodium (Chloride) 100 mls @ 5 mls/hr IV NOW [facility]; Protocol Last Titration: 12/27/20 23:28 Dose: 0 mg/hr, 0 mls/hr Documented by: Lorazepam (Lorazepam 2 Mg/Ml Sdv) 1 mg IVPUSH Q4H PRN; Protocol PRN Reason: Withdrawal Symptoms Last Admin: 12/29/20 09:33 Dose: 1 mg Documented by: Morphine Sulfate (Morphine 4 Mg/Ml Syringe) 4 mg IVPUSH Q4H PRN PRN Reason: Pain Last Admin: 12/29/20 14:41 Dose: 4 mg Documented by: Oxycodone HCl (Oxycodone 5 Mg Tab) 5 mg PO Q4H PRN PRN Reason: Pain Last Admin: 12/29/20 09:34 Dose: 5 mg Documented by: Thiamine HCl (Thiamine 200 Mg/2 Ml Mdv) 100 mg IVPUSH DAILY [facility] Last Admin: 12/29/20 09:35 Dose: 100 mg Documented by: Discontinued Medications Digoxin (Digoxin 500 Mcg/2 Ml Amp) 250 mcg IVPUSH ONETIME ONE Stop: 12/27/20 20:31 Last Admin: 12/27/20 20:50 Dose: 250 mcg Documented by: Digoxin (Digoxin 500 Mcg/2 Ml Amp) 250 mcg IVPUSH ONETIME ONE Stop: 12/28/20 09:30 Last Admin: 12/28/20 10:16 Dose: 250 mcg Documented by: Diltiazem HCl (Diltiazem 25 Mg/5 Ml Sdv) 20 mg IVPUSH ONETIME ONE Stop: 12/27/20 01:39 Last Admin: 12/27/20 02:02 Dose: 20 mg Documented by: Diltiazem HCl (Diltiazem 180 Mg Cap.Cd) 180 mg PO DAILY [facility] Last Admin: 12/27/20 09:21 Dose: 180 mg Documented by: Diltiazem HCl (Diltiazem Ir 30 Mg Tab) 30 mg PO Q6HR [facility] Last Admin: 12/28/20 05:06 Dose: 30 mg Documented by: Folic Acid (Folic Acid 1 Mg Tab) 1 mg PO ONETIME ONE Stop: 12/26/20 23:54 Last Admin: 12/27/20 00:08 Dose: 1 mg Documented by: Lactated Ringer's (Ringers, Lactated) 1,000 mls @ 999 mls/hr IV .BOLUS ONE Stop: 12/27/20 00:58 Last Admin: 12/27/20 00:06 Dose: 999 mls/hr Documented by: Sodium Chloride (Normal Saline) 1,000 mls @ 125 mls/hr IV ASDIRECTED [facility] Last Admin: 12/27/20 17:51 Dose: 125 mls/hr Documented by: Magnesium Sulfate (Magnesium Sulfate In Water 2 Gm/50 Ml) 50 mls @ 50 mls/hr IV ONETIME ONE Stop: 12/27/20 21:59 Last Admin: 12/27/20 21:11 Dose: 50 mls/hr Documented by: Iopamidol (Iopamidol 755 Mg/Ml 100 Ml Bottle) 100 ml IVPUSH ONETIME ONE Stop: 12/27/20 01:12 Last Admin: 12/27/20 01:12 Dose: 100 ml Documented by: Magnesium Sulfate (Magnesium Sulfate/Water 2 Gm/50 Ml Premix Bag) 2 gm IV ONETIME ONE Stop: 12/27/20 20:47 Thiamine HCl (Thiamine 200 Mg/2 Ml Mdv) 100 mg IVPUSH ONETIME ONE Stop: 12/26/20 23:54 Last Admin: 12/27/20 00:07 Dose: 100 mg Documented by: - Exam General: Alert, Oriented HEENT: Pupils Equal Neck: Supple Lungs: Clear to Auscultation, Normal Respiratory Effort Cardiovascular: Regular Rate, Regular Rhythm GI/Abdominal Exam: Soft, Non-Tender, No Distention Extremities: Non-Tender, No Pedal Edema Skin: Warm, Dry, Intact Neurological: No New Focal Deficit - Patient Data Lab Results Last 24 hrs: Laboratory Results - last 24 hr 12/29/20 12/29/20 Range/Units 05:45 05:45 WBC 6.89 (4.0-11.0) K/uL RBC 4.91 (4.50-5.90) M/uL Hgb 16.5 (13.0-17.0) g/dL Hct 47.7 (38.0-50.0) % MCV 97.1 (80.0-98.0) fL MCH 33.6 H (27.0-32.0) pg MCHC 34.6 (31.0-37.0) g/dL RDW Std Deviation 45.0 (28.0-62.0) fl RDW Coeff of Maria C 13 (11.0-15.0) % Plt Count 67 L (150-400) K/uL MPV 12.30 H (7.40-12.00) fL Neut % (Auto) 70.1 (48.0-80.0) % Lymph % (Auto) 20.6 (16.0-40.0) % [place] % (Auto) 5.8 (0.0-15.0) % Eos % (Auto) 3.2 (0.0-7.0) % Baso % (Auto) 0.3 (0.0-1.5) % Neut # (Auto) 4.8 (1.4-5.7) K/uL Lymph # (Auto) 1.4 (0.6-2.4) K/uL [place] # (Auto) 0.4 (0.0-0.8) K/uL Eos # (Auto) 0.2 (0.0-0.7) K/uL Baso # (Auto) 0.0 (0.0-0.1) K/uL Nucleated RBC % 0.0 /100WBC Nucleated RBCs # 0 K/uL Sodium 139 (136-148) mmol/L Potassium 3.9 (3.5-5.1) mmol/L Chloride 102 (98-107) mmol/L Carbon Dioxide 30.4 (21.0-32.0) mmol/L BUN 9 (7.0-18.0) mg/dL Creatinine 0.9 (0.8-1.3) mg/dL Est Cr Clr Drug Dosing 93.33 mL/min Estimated GFR (MDRD) > 60.0 ml/min Glucose 121 H (74-106) mg/dL Calcium 9.2 (8.5-10.1) mg/dL Phosphorus 3.6 (2.6-4.7) mg/dL Magnesium 1.8 (1.8-2.4) mg/dL Total Bilirubin 1.6 H (0.2-1.0) mg/dL AST 51 H (15-37) IU/L ALT 60 (14-63) IU/L Alkaline Phosphatase 121 H (46-116) U/L Total Protein 7.6 (6.4-8.2) g/dL Albumin 3.3 L (3.4-5.0) g/dL Globulin 4.3 H (2.6-4.0) g/dL Albumin/Globulin Ratio 0.8 L (0.9-1.6) Result Diagrams: 12/29/20 05:45 12/29/20 05:45 Sepsis Event Note - Evaluation Sepsis Screening Result: No Definite Risk - Focused Exam Vital Signs: Vital Signs Temp Resp BP Pulse Ox Pulse Ox 12/29/20 17:00 13 119/83 95 12/29/20 16:00 36.8 C 15 122/78 94 L 12/29/20 15:00 17 138/101 H 95 12/29/20 14:00 18 114/87 93 L 12/29/20 13:00 30 H 121/92 H 93 L 12/29/20 12:00 36.7 C 15 133/89 95 12/29/20 11:00 16 132/90 93 L 12/29/20 10:00 22 H 134/94 H 93 L 93 L 12/29/20 09:00 20 115/91 H 92 L 12/29/20 08:00 36.5 C 19 125/86 95 12/29/20 07:00 21 H 134/90 94 L 12/29/20 06:00 17 140/84 90 L - Problem List & Annotations (1) Atrial flutter SNOMED Code(s): 4846932 Code(s): I48.92 - UNSPECIFIED ATRIAL FLUTTER Status: Acute Current Visit: Yes (2) Chronic alcohol use SNOMED Code(s): 872879 Code(s): Z72.89 - OTHER PROBLEMS RELATED TO LIFESTYLE Status: Acute Current Visit: Yes (3) Left rib fracture SNOMED Code(s): 91136876 Code(s): S22.32XA - FRACTURE OF ONE RIB, LEFT SIDE, INIT FOR CLOS FX Status: Acute Current Visit: Yes Qualifiers: Rib fracture type: single rib Fracture type: closed (4) Chest pain SNOMED Code(s): 51398178 Code(s): R07.9 - CHEST PAIN, UNSPECIFIED Status: Acute Current Visit: No (5) Alcohol withdrawal seizure SNOMED Code(s): 011942800 Code(s): F10.239 - ALCOHOL DEPENDENCE WITH WITHDRAWAL, UNSPECIFIED; R56.9 - UNSPECIFIED CONVULSIONS Status: Acute Current Visit: Yes - Problem List Review Problem List Initiated/Reviewed/Updated: Yes - My Orders Last 24 Hours: My Active Orders 12/30/20 05:11 CBC WITH AUTO DIFF [HEME] AM COMPREHENSIVE METABOLIC PN,CMP [CHEM] AM MAGNESIUM [CHEM] AM PHOSPHORUS [CHEM] AM 12/31/20 05:11 CBC WITH AUTO DIFF [HEME] AM COMPREHENSIVE METABOLIC PN,CMP [CHEM] AM MAGNESIUM [CHEM] AM PHOSPHORUS [CHEM] AM - Plan Plan:: 55 yo male admitted for ETOH detox, a.fib with RVR, and rib fracture ETOH dependence: continue Valium TID, CIWA protocol with prn Ativan, thiamin and folic acid A.fib: continue oral diltiazem rib fracture: continue pain control, encourage incentive spirometry dvt prophylaxis: due to history of possible GI bleed with place on SCDs.
[2020-12-29] MEDS ORDERED: Diltiazem 180 MG Cap.CD ONE (19:56)
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
== END 2020-12-29 20:12 | disposition left against medical advice (07) | DRG 206 ==
LOC: MW.ED 22:26 → MW.MS 12-27 02:57 → OBSVTOIN 12-27 06:12 → MW.MS 12-27 06:13 → MW.ICU 12-27 17:43
PROVIDERS: ADMIT Internal Medicine; ATTEND Internal Medicine
DX: S22.32XA Fracture of one rib, left side, initial encounter for closed fracture (principal); F10.239 Alcohol dependence with withdrawal, unspecified; I48.92 Unspecified atrial flutter; R56.9 Unspecified convulsions; I48.91 Unspecified atrial fibrillation; F17.200 Nicotine dependence, unspecified, uncomplicated; Z88.0 Allergy status to penicillin; Z79.52 Long term (current) use of systemic steroids; Z79.899 Other long term (current) drug therapy; V87.8XXA Person injured in other specified noncollision transport accidents involving motor vehicle (traffic), initial encounter
CPT/HCPCS: 36415; 70450; 70450-26; 71260; 71260-26; 72125; 72125-26; 72128; 72128-26; 72131; 72131-26; 74177; 74177-26; 80053; 80307; 83605; 83690; 83735; 84100; 84484; 85025; 85610; 85730; 93005; 96374; 96375; 97161-GP; 99285-25; A9270-GY; C9113; J1160; J2060; J2270; J3411; J3475; J3490; J7030; J7120; Q9967

== ENCOUNTER 2020-12-31 03:06 | Inpatient (IN) | payer OTHER, MEDICAID ==
[2020-12-31] MEDS ORDERED: Sodium Chloride 0.9% 2.5 ML Syringe FLUSH PRN (03:18)
[2020-12-31] MEDS ORDERED: Sodium Chloride 0.9% 10 ML Syringe FLUSH PRN (03:18)
[2020-12-31] MEDS ORDERED: Diltiazem 25 MG/5 ML SDV IVPUSH ONE ×3 (03:19→05:23)
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
[2020-12-31] MEDS ORDERED: Digoxin 500 MCG/2 ML Amp IVPUSH ONE (03:31)
[2020-12-31] MEDS ORDERED: Sodium Chloride 0.9% 100 ML ONE (03:53)
[2020-12-31] MEDS: Diltiazem 100 MG in Sodium Chloride 0.9% 100 ML IV SCH ×2 (04:01→11:49)
[2020-12-31 04:03] LABS: BLOOD UREA NITROGEN,BUN 10 mg/dL (7.0-18.0); CARBON DIOXIDE,CO2 26.1 mmol/L (21.0-32.0); CHLORIDE,CL 104 mmol/L (98-107); GLUCOSE RANDOM 105 mg/dL (74-106); LIPASE 88 U/L (73-393); POTASSIUM,K 3.7 mmol/L (3.5-5.1); SODIUM,NA 141 mmol/L (136-148)
--- NOTE | 2020-12-31 04:20 | CR ---
Indication: Chest pain Technique: Chest 1 view Comparison: December 26, 2020 Findings/Impression: Cardiovascular and mediastinum: Heart size and vasculature are normal in caliber and appearance. Mediastinum is within normal limits. Lungs and pleural space: New, small left pneumothorax. Lungs are clear. No sign of infiltrate or mass. No sign of pleural effusion. Bones and soft tissues: Left posterior 7th rib fracture. Findings discussed with Dr. Ames at 4:17 a.m. on December 31, 2020. Dictated by Meli Joya MD @ 12/31/2020 4:18:19 AM (Electronically Signed)
[2020-12-31] MEDS ORDERED: LORazepam 2 MG/ML SDV IVPUSH ONE (04:28)
[2020-12-31] MEDS ORDERED: Diltiazem 100 MG in Sodium Chloride 0.9% 100 ML IV SCH (05:00)
[2020-12-31] MEDS ORDERED: Albuterol/Ipratropium 3.0-0.5 MG/3 ML Neb Soln NEB PRN (06:02)
[2020-12-31] MEDS ORDERED: Ondansetron 4 MG/2 ML SDV IVPUSH PRN (06:02)
[2020-12-31] MEDS ORDERED: Lactated Ringers 1,000 ML IV ONE (06:02)
[2020-12-31] MEDS ORDERED: chlordiazePOXIDE 10 MG Cap PO SCH (06:07)
--- NOTE | 2020-12-31 06:09 | PCM.HP.2 ---
H&P History of Present Illness - General Date of Service: 12/31/20 Admit Problem/Dx: Admission Diagnosis/Problem Admission Diagnosis/Problem Afib, Atrial fibrillation and flutter - History of Present Illness Initial Comments - Free Text/Narative: Patient is a 55-year-old male with past medical history of atrial fibrillation who came to the ER with complaints of left sided chest pain and palpitations. Patient was found to be in atrial fibrillation with rapid ventricular response. Chest x-ray showed small left apical pneumothorax that is unchanged from the previous x-ray on 12/26. Initial troponin was negative. UDS was positive for marijuana. Patient's blood alcohol level was 138. Patient received several IV pushes of Cardizem and was eventually started on Cardizem drip for rate control. Patient was admitted to the ICU for further management. Of note patient recently left AGAINST MEDICAL ADVICE from the hospital after being admitted for similar presentation. Left Chest Pain Score (Numeric/FACES): 8 - Related Data Allergies/Adverse Reactions: Allergies Allergy/AdvReac Type Severity Reaction Status Date / Time Penicillins Allergy Anaphylactic Verified 12/27/20 04:46 Shock Home Medications: Home Meds . [No Known Home Meds] 12/31/20 [History] Past Medical History HEENT History: Reports: None Cardiovascular History: Reports: Hypertension, [place] Other Cardiovascular History: Aflutter RVR Respiratory History: Reports: COPD Musculoskeletal History: Reports: Back Pain, Chronic - Infectious Disease History Infectious Disease History: Reports: Chicken Pox, Measles Social & Family History - Family History Family Medical History: No Pertinent Family History - Caffeine Use Caffeine Use: Reports: None - Recreational Drug Use Recreational Drug Type: Reports: Marijuana/Hashish H&P Review of Systems - Review of Systems: Review Of Systems: See Below General: Reports: Weakness, Fatigue. Denies: Fever, Chills, Malaise Pulmonary: Reports: Pleuritic Chest Pain. Denies: Shortness of Breath, Wheezing, Cough, Sputum Cardiovascular: Reports: Chest Pain, Palpitations, Dyspnea on Exertion Gastrointestinal: Denies: Abdominal Pain, Anorexia, Black Stool Genitourinary: Denies: Dysuria, Frequency, Pain Musculoskeletal: Denies: Neck Pain, Shoulder Pain, Arm Pain Skin: Denies: Cyanosis, Jaundice, Mottled Psychiatric: Reports: Anxiety, Cravings. Denies: Confusion, Depression, Mood Lability, Suicidal Ideation, Homicidal Ideation, Hallucinations (Auditory) Neurological: Denies: Confusion, Dizziness, Headache Exam - Exam Exam: See Below - Vital Signs Vital Signs: Last Vital Signs Temp 36.7 C 12/31/20 03:08 Pulse 134 H 12/31/20 05:40 Resp 19 12/31/20 05:40 BP 107/68 12/31/20 05:40 Pulse Ox 94 L 12/31/20 05:40 Weight: 81.647 kg - Exam Quality Assessment: Supplemental Oxygen General: Alert, Oriented Neck: Supple, Trachea Midline Lungs: Clear to Auscultation, Normal Respiratory Effort. No: Decreased Breath Sounds, Wheezing Cardiovascular: Normal S1, Normal S2, Irregular Rhythm, Tachycardia GI/Abdominal Exam: Normal Bowel Sounds, Soft, Non-Tender - Patient Data Lab Results Last 24 hrs: Laboratory Results - last 24 hr 12/31/20 12/31/20 12/31/20 Range/Units 03:15 03:30 03:34 WBC 8.38 (4.0-11.0) K/uL RBC 4.39 L (4.50-5.90) M/uL Hgb 15.0 (13.0-17.0) g/dL Hct 42.3 (38.0-50.0) % MCV 96.4 (80.0-98.0) fL MCH 34.2 H (27.0-32.0) pg MCHC 35.5 (31.0-37.0) g/dL RDW Std Deviation 45.8 (28.0-62.0) fl RDW Coeff of Maria C 13 (11.0-15.0) % Plt Count 99 L (150-400) K/uL MPV 12.80 H (7.40-12.00) fL Neut % (Auto) 64.4 (48.0-80.0) % Lymph % (Auto) 22.2 (16.0-40.0) % Morton % (Auto) 10.7 (0.0-15.0) % Eos % (Auto) 2.5 (0.0-7.0) % Baso % (Auto) 0.2 (0.0-1.5) % Neut # (Auto) 5.4 (1.4-5.7) K/uL Lymph # (Auto) 1.9 (0.6-2.4) K/uL Morton # (Auto) 0.9 H (0.0-0.8) K/uL Eos # (Auto) 0.2 (0.0-0.7) K/uL Baso # (Auto) 0.0 (0.0-0.1) K/uL Nucleated RBC % 0.0 /100WBC Nucleated RBCs # 0 K/uL INR Sodium 141 (136-148) mmol/L Potassium 3.7 (3.5-5.1) mmol/L Chloride 104 (98-107) mmol/L Carbon Dioxide 26.1 (21.0-32.0) mmol/L BUN 10 (7.0-18.0) mg/dL Creatinine 0.9 (0.8-1.3) mg/dL Est Cr Clr Drug Dosing 105.84 mL/min Estimated GFR (MDRD) > 60.0 ml/min Glucose 105 (74-106) mg/dL Calcium 8.5 (8.5-10.1) mg/dL Total Bilirubin 0.7 (0.2-1.0) mg/dL AST 91 H (15-37) IU/L ALT 63 (14-63) IU/L Alkaline Phosphatase 117 H (46-116) U/L Troponin I < 0.050 (0.000-0.056) ng/mL Total Protein 7.7 (6.4-8.2) g/dL Albumin 3.2 L (3.4-5.0) g/dL Globulin 4.5 H (2.6-4.0) g/dL Albumin/Globulin Ratio 0.7 L (0.9-1.6) Lipase 88 (73-393) U/L Ethyl Alcohol 138 mg/dL SARS-CoV-2 RNA (MCKENZIE) NEGATIVE (NEGATIVE) 12/31/20 Range/Units 03:34 WBC (4.0-11.0) K/uL RBC (4.50-5.90) M/uL Hgb (13.0-17.0) g/dL Hct (38.0-50.0) % MCV (80.0-98.0) fL MCH (27.0-32.0) pg MCHC (31.0-37.0) g/dL RDW Std Deviation (28.0-62.0) fl RDW Coeff of Maria C (11.0-15.0) % Plt Count (150-400) K/uL MPV (7.40-12.00) fL Neut % (Auto) (48.0-80.0) % Lymph % (Auto) (16.0-40.0) % Morton % (Auto) (0.0-15.0) % Eos % (Auto) (0.0-7.0) % Baso % (Auto) (0.0-1.5) % Neut # (Auto) (1.4-5.7) K/uL Lymph # (Auto) (0.6-2.4) K/uL Morton # (Auto) (0.0-0.8) K/uL Eos # (Auto) (0.0-0.7) K/uL Baso # (Auto) (0.0-0.1) K/uL Nucleated RBC % /100WBC Nucleated RBCs # K/uL INR 0.97 Sodium (136-148) mmol/L Potassium (3.5-5.1) mmol/L Chloride (98-107) mmol/L Carbon Dioxide (21.0-32.0) mmol/L BUN (7.0-18.0) mg/dL Creatinine (0.8-1.3) mg/dL Est Cr Clr Drug Dosing mL/min Estimated GFR (MDRD) ml/min Glucose (74-106) mg/dL Calcium (8.5-10.1) mg/dL Total Bilirubin (0.2-1.0) mg/dL AST (15-37) IU/L ALT (14-63) IU/L Alkaline Phosphatase (46-116) U/L Troponin I (0.000-0.056) ng/mL Total Protein (6.4-8.2) g/dL Albumin (3.4-5.0) g/dL Globulin (2.6-4.0) g/dL Albumin/Globulin Ratio (0.9-1.6) Lipase (73-393) U/L Ethyl Alcohol mg/dL SARS-CoV-2 RNA (MCKENZIE) (NEGATIVE) Result Diagrams: 12/31/20 03:15 12/31/20 03:34 Sepsis Event Note - Focused Exam Vital Signs: Vital Signs Temp Pulse Pulse Resp BP Pulse Ox 12/31/20 05:40 134 H 19 107/68 94 L 12/31/20 05:12 137 H 19 113/68 94 L 12/31/20 04:55 142 H 19 122/77 94 L 12/31/20 04:32 135 H 19 114/80 93 L 12/31/20 04:14 128 H 18 105/74 94 L 12/31/20 04:02 136 H 19 120/72 94 L 12/31/20 03:42 100 17 130/75 95 12/31/20 03:37 144 H 12/31/20 03:34 144 H 17 115/80 94 L 12/31/20 03:28 145 H 18 125/87 95 12/31/20 03:08 36.7 C 132 H 19 136/92 H 95 - Problem List (1) Alcohol withdrawal SNOMED Code(s): 366023549 ICD Code: F10.239 - ALCOHOL DEPENDENCE WITH WITHDRAWAL, UNSPECIFIED Status: Acute Current Visit: Yes (2) Atrial flutter with rapid ventricular response SNOMED Code(s): 8428500, 7460890 ICD Code: I48.92 - UNSPECIFIED ATRIAL FLUTTER Status: Acute Current Visit: Yes (3) Pneumothorax SNOMED Code(s): 18275064 ICD Code: J93.9 - PNEUMOTHORAX, UNSPECIFIED Status: Acute Current Visit: Yes Problem List Initiated/Reviewed/Updated: Yes Orders Last 24hrs: Active Orders 24 hr Category Date Time Status Admission Status [Patient Status] [ADT] Stat ADT 12/31/20 04:59 Active Ambulate [RC] ASDIRECTED Care 12/31/20 06:02 Ordered CIWAA Assessment [RC] ASDIRECTED Care 12/31/20 06:06 Ordered Oxygen Therapy [RC] PRN Care 12/31/20 06:02 Ordered Pulse Oximetry [RC] PRN Care 12/31/20 06:02 Ordered RT Aerosol Therapy [RC] ASDIRECTED Care 12/31/20 06:04 Ordered VTE/DVT Education [RC] PER UNIT ROUTINE Care 12/31/20 06:02 Ordered Vital Signs [RC] Q4H Care 12/31/20 06:02 Ordered Heart Healthy Diet [DIET] Diet 12/31/20 Breakfast Ordered DRUG SCREEN, URINE [URCHEM] Stat Lab 12/31/20 03:21 Ordered Albuterol/Ipratropium [DuoNeb 3.0-0.5 MG/3 ML] Med 12/31/20 06:02 Ordered 3 ml NEB Q4HRRT PRN Diltiazem [Cardizem] 100 mg Med 12/31/20 04:00 Active Sodium Chloride 0.9% [Normal Saline] 100 ml IV NOW Diltiazem [Cardizem] 100 mg Med 12/31/20 05:00 Active Sodium Chloride 0.9% [Normal Saline] 100 ml IV NOW Enoxaparin [Lovenox] Med 12/31/20 06:15 Ordered 40 mg SUBCUT Q24H LORazepam [Ativan] Med 12/31/20 06:05 Ordered 2 mg IVPUSH Q4H PRN Lactated Ringers @ 125 MLS/HR(1000ml) Med 12/31/20 06:15 Ordered Lactated Ringers [Ringers, Lactated] 1,000 ml IV ASDIRECTED Lactated Ringers [Ringers, Lactated] 1,000 ml Med 12/31/20 06:02 Ordered IV BOLUS Ondansetron [Zofran] Med 12/31/20 06:02 Ordered 4 mg IVPUSH Q4H PRN Pantoprazole [ProTONIX IV] Med 12/31/20 09:00 Ordered 40 mg IV DAILY Sodium Chloride 0.9% [Saline Flush] Med 12/31/20 03:18 Active 10 ml FLUSH ASDIRECTED PRN Sodium Chloride 0.9% [Saline Flush] Med 12/31/20 03:18 Active 2.5 ml FLUSH ASDIRECTED PRN chlordiazePOXIDE [Librium] Med 12/31/20 06:07 Ordered 10 mg PO BID Saline Lock Insert [OM.PC] Stat Oth 12/31/20 03:18 Ordered Resuscitation Status Routine Resus Stat 12/31/20 06:02 Ordered Medication Orders Albuterol/Ipratropium (Albuterol/Ipratropium 3.0-0.5 Mg/3 Ml Neb Soln) 3 ml NEB Q4HRRT PRN PRN Reason: Shortness Of Breath/wheezing Chlordiazepoxide HCl (Chlordiazepoxide 10 Mg Cap) 10 mg PO BID BRENT Enoxaparin Sodium (Enoxaparin 40 Mg/0.4 Ml Syringe) 40 mg SUBCUT Q24H BRENT Diltiazem HCl 100 mg/ Sodium (Chloride) 100 mls @ 5 mls/hr IV NOW BRENT; Protocol Last Titration: 12/31/20 05:39 Dose: 10 mg/hr, 10 mls/hr Documented by: Admin: 12/31/20 04:01 Dose: 5 mg/hr, 5 mls/hr Documented by: GREY Diltiazem HCl 100 mg/ Sodium (Chloride) 100 mls @ 10 mls/hr IV NOW BRENT; Protocol Lactated Ringer's (Ringers, Lactated) 1,000 mls @ 125 mls/hr IV ASDIRECTED BRENT Lactated Ringer's (Ringers, Lactated) 1,000 mls @ 999 mls/hr IV BOLUS ONE Stop: 12/31/20 07:02 Lorazepam (Lorazepam 2 Mg/Ml Sdv) 2 mg IVPUSH Q4H PRN; Protocol PRN Reason: Withdrawal Symptoms Ondansetron HCl (Ondansetron 4 Mg/2 Ml Sdv) 4 mg IVPUSH Q4H PRN PRN Reason: Nausea/Vomiting Pantoprazole Sodium (Pantoprazole 40 Mg Vial) 40 mg IV DAILY BRENT Sodium Chloride (Sodium Chloride 0.9% 10 Ml Syringe) 10 ml FLUSH ASDIRECTED PRN PRN Reason: Keep Vein Open Last Admin: 12/31/20 03:23 Dose: 10 ml Documented by: GREY Sodium Chloride (Sodium Chloride 0.9% 2.5 Ml Syringe) 2.5 ml FLUSH ASDIRECTED PRN PRN Reason: Keep Vein Open Last Admin: 12/31/20 03:23 Dose: 2.5 ml Documented by: GREY Assessment/Plan Comment:: 55-year-old male admitted for A. fib RVR and alcohol withdrawal Continue Cardizem drip, wean off as able Patient received loading dose of digoxin in the ER, Will start patient on Cardizem to help wean off the drip Troponin negative, no concern of ACS at this time, A. 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
[2020-12-31] MEDS ORDERED: Enoxaparin 40 MG/0.4 ML Syringe SUBCUT SCH (06:15)
[2020-12-31] MEDS: Morphine 2 MG/ML SYRINGE IVPUSH PRN ×2 (06:29→15:43)
[2020-12-31] MEDS: Lactated Ringers 1,000 ML IV SCH ×3 (07:26→22:43)
--- NOTE | 2020-12-31 07:30 | PN ---
THC Physician - Brief Progress [id number]/20/2021 07:24[facility] [place], [place] - JUANN (JEANNE) - ELDER KOENIGBANDAR BERGDate of Service 12/31/2020 07:24HPI/Events of Note eICU admission noteActive problems:1. Atrial fibrillation with rapid ventricular response2. S mall left apical pneumothorax likely due to left seventh rib fracture from recent fall3. Alcohol use disorder with intoxication4. Left 7 rib fracture secondary to recent fallHPI:History obtained from reviewing medical records.55-year-old male presented with left chest pain and palpitation was found t o be in atrial fibrillation with rapid response. Chest x-ray showed small left apical pneumothorax t hat is unchanged from previous x-ray on 12/26. Troponin negative. Hemodynamically stable. Blood alc ohol level elevated 138. Urine drug screen positive for marijuana. Patient was started on Cardizem drip and admitted to ICU for closer monitoring and treatment.Patient was seen by ED care, Comfortable no acute distressVitals: T 36.7 xC, BP 107/68, P1 107 irregular, RR 18, SPO2 95% on room airChart, l abs and images reviewedeICU recommendations:-Continue current treatment plan as per primary medical t eam: Cardizem drip titrate for goal heart rate less than 110/min, check TSH, check magnesium, maintai n potassium 4 magnesium 2, trend troponin, echocardiogram-CIWA protocol, thiamine, multivitamin, foli c acid-Recommend to place nonrebreather oxygen mask to help with resolution of left apical pneumothor ax-Analgesia as per primary team-DVT prophylaxisThank you for allowing us to participate the care of your patient. Please call eICU with any questions, concerns or changes in clinical condition.Interve ntions Major-Arrhythmia - evaluation and management, Other: Alcohol intoxication, left apical pneumot horax
--- NOTE | 2020-12-31 07:32 | PN ---
THC Physician - Brief Progress [id number]/20/2021 07:24[facility] [place], [place] - JUANN (JEANNE) - N LIBERTYBANDAR BERGDate of Service 12/31/2020 07:24HPI/Events of Note eICU admission noteActive problems:1. Atrial fibrillation with rapid ventricular response2. S mall left apical pneumothorax likely due to left seventh rib fracture from recent fall3. Alcohol use disorder with intoxication4. Left 7 rib fracture secondary to recent fallHPI:History obtained from reviewing medical records.55-year-old male presented with left chest pain and palpitation was found t o be in atrial fibrillation with rapid response. Chest x-ray showed small left apical pneumothorax t hat is unchanged from previous x-ray on 12/26. Troponin negative. Hemodynamically stable. Blood alc ohol level elevated 138. Urine drug screen positive for marijuana. Patient was started on Cardizem drip and admitted to ICU for closer monitoring and treatment.Patient was seen by ED care, Comfortable no acute distressVitals: T 36.7 xC, BP 107/68, P1 107 irregular, RR 18, SPO2 95% on room airChart, l abs and images reviewedeICU recommendations:-Continue current treatment plan as per primary medical t eam: Cardizem drip titrate for goal heart rate less than 110/min, check TSH, check magnesium, maintai n potassium 4 magnesium 2, trend troponin, echocardiogram-CIWA protocol, thiamine, multivitamin, foli c acid-Recommend to place nonrebreather oxygen mask to help with resolution of left apical pneumothor ax-Analgesia as per primary team-DVT prophylaxisThank you for allowing us to participate the care of your patient. Please call eICU with any questions, concerns or changes in clinical condition.Interve ntions Major-Arrhythmia - evaluation and management, Other: Alcohol intoxication, left apical pneumot horax Annotated By: Franklin Stone) Date: 12/31/20 07:32Follow-up chest x-ray to monitor left pneumothorax.
[2020-12-31] MEDS ORDERED: Magnesium Sulfate/Water 2 GM in Premix Bag 1 BAG IV ONE (08:08)
[2020-12-31] MEDS ORDERED: Potassium Chloride 20 MEQ Tab.ER PO ONE (08:08)
[2020-12-31] MEDS: Pantoprazole 40 MG in Sodium Chloride 0.9% 10 ML IV SCH (08:20)
[2020-12-31] MEDS: Thiamine 200 MG/2 ML MDV IV SCH (08:58)
[2020-12-31] MEDS: Folic Acid 50 MG/10 ML MDV IV SCH (08:58)
[2020-12-31] MEDS ORDERED: Pantoprazole 40 MG Vial IV SCH (09:00)
[2020-12-31] MEDS ORDERED: Thiamine 100 MG in Sodium Chloride 0.9% 100 ML IV SCH (09:00)
[2020-12-31] MEDS: LORazepam 2 MG/ML SDV IVPUSH PRN ×4 (10:02→22:35)
[2020-12-31] MEDS: Digoxin 500 MCG/2 ML Amp IVPUSH SCH ×2 (10:29→15:37)
[2020-12-31] MEDS: Diltiazem IR 30 MG Tab PO SCH ×2 (11:42→17:24)
--- NOTE | 2020-12-31 12:56 | CR ---
INDICATION: Re-evaluate pneumothorax. TECHNIQUE: Upright portable AP image of the chest. COMPARISON: Chest x-ray from 06/30 9 a.m. today. FINDINGS: Small left pneumothorax, stable. No other change. IMPRESSION: Unchanged small left pneumothorax. Dictated by Jimmy Jiang MD @ 12/31/2020 12:55:27 PM (Electronically Signed)
--- NOTE | 2020-12-31 14:06 | PCM.PN ---
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 g/dL RDW Std Deviation 45.4 (28.0-62.0) fl RDW Coeff of Maria C 13 (11.0-15.0) % Plt Count 66 L (150-400) K/uL MPV 12.60 H (7.40-12.00) fL Neut % (Auto) 62.5 (48.0-80.0) % Lymph % (Auto) 23.2 (16.0-40.0) % Holmes % (Auto) 10.4 (0.0-15.0) % Eos % (Auto) 3.5 (0.0-7.0) % Baso % (Auto) 0.4 (0.0-1.5) % Neut # (Auto) 3.4 (1.4-5.7) K/uL Lymph # (Auto) 1.3 (0.6-2.4) K/uL Holmes # (Auto) 0.6 (0.0-0.8) K/uL Eos # (Auto) 0.2 (0.0-0.7) K/uL Baso # (Auto) 0.0 (0.0-0.1) K/uL Nucleated RBC % 0.0 /100WBC Nucleated RBCs # 0 K/uL Sodium 141 (136-148) mmol/L Potassium 3.9 (3.5-5.1) mmol/L Chloride 105 (98-107) mmol/L Carbon Dioxide 31.3 (21.0-32.0) mmol/L BUN 10 (7.0-18.0) mg/dL Creatinine 0.7 L (0.8-1.3) mg/dL Est Cr Clr Drug Dosing 130.94 mL/min Estimated GFR (MDRD) > 60.0 ml/min Glucose 126 H (74-106) mg/dL Calcium 8.6 (8.5-10.1) mg/dL Magnesium 1.8 (1.8-2.4) mg/dL Total Bilirubin 1.0 (0.2-1.0) mg/dL AST 52 H (15-37) IU/L ALT 46 (14-63) IU/L Alkaline Phosphatase 107 (46-116) U/L Total Protein 6.8 (6.4-8.2) g/dL Albumin 2.6 L (3.4-5.0) g/dL Globulin 4.2 H (2.6-4.0) g/dL Albumin/Globulin Ratio 0.6 L (0.9-1.6) Result Diagrams: 01/01/21 05:31 01/01/21 05:31 Sepsis Event Note - Focused Exam Vital Signs: Vital Signs Temp Pulse Pulse Resp BP BP Pulse Ox 01/01/21 15:00 90 16 130/84 94 L 01/01/21 14:00 36.3 C 94 18 137/79 95 01/01/21 13:00 36.7 C 97 16 140/74 92 L 01/01/21 12:00 36.1 C 85 18 132/79 93 L 01/01/21 11:02 94 120/73 01/01/21 11:00 36.2 C 94 16 120/73 94 L 01/01/21 10:00 37.2 C 105 H 18 134/86 90 L 01/01/21 09:58 105 H 134/86 01/01/21 09:00 36.7 C 78 16 134/86 99 01/01/21 08:00 36.3 C 81 19 144/89 H 99 01/01/21 07:00 20 137/79 95 01/01/21 06:02 98 01/01/21 06:00 21 H 141/80 H 98 01/01/21 05:00 16 139/93 H 95 01/01/21 04:00 36.4 C 22 H 154/98 H 100 Pulse Ox 01/01/21 15:00 01/01/21 14:00 01/01/21 13:00 01/01/21 12:00 01/01/21 11:02 01/01/21 11:00 01/01/21 10:00 01/01/21 09:58 01/01/21 09:00 01/01/21 08:00 01/01/21 07:00 01/01/21 06:02 98 01/01/21 06:00 01/01/21 05:00 01/01/21 04:00 - Problem List & Annotations (1) Alcohol withdrawal SNOMED Code(s): 669274427 Code(s): F10.239 - ALCOHOL DEPENDENCE WITH WITHDRAWAL, UNSPECIFIED Status: Acute Current Visit: Yes (2) Atrial flutter with rapid ventricular response SNOMED Code(s): 0287458, 4190001 Code(s): I48.92 - UNSPECIFIED ATRIAL FLUTTER Status: Acute Current Visit: Yes (3) Pneumothorax SNOMED Code(s): 63894451 Code(s): J93.9 - PNEUMOTHORAX, UNSPECIFIED Status: Acute Current Visit: Yes - My Orders Last 24 Hours: My Active Orders 01/01/21 13:56 LORazepam [Ativan] See Protocol IVPUSH Q4H PRN 01/01/21 13:58 Transfer Patient (Change bed) [ADT] Routine 01/01/21 13:59 Out of Bed [RC] Q8HR 01/01/21 14:00 Thiamine [Vitamin B-1] 100 mg IV Q24H 01/01/21 21:00 Folic Acid 1 mg PO BEDTIME 01/02/21 07:30 Pantoprazole [ProTONIX] 40 mg PO ACBREAKFAST - Plan Plan:: I have seen and evaluated the patient and agree with the residents note unless specified in my note
[2021-01-01] MEDS: Diltiazem IR 30 MG Tab PO SCH ×2 (00:12→05:01)
[2021-01-01] MEDS: LORazepam 2 MG/ML SDV IVPUSH PRN ×2 (02:00→07:57)
[2021-01-01 06:19] LABS: BLOOD UREA NITROGEN,BUN 10 mg/dL (7.0-18.0); CARBON DIOXIDE,CO2 31.3 mmol/L (21.0-32.0); CHLORIDE,CL 105 mmol/L (98-107); GLUCOSE RANDOM 126 mg/dL (74-106); POTASSIUM,K 3.9 mmol/L (3.5-5.1); SODIUM,NA 141 mmol/L (136-148)
[2021-01-01] MEDS: Lactated Ringers 1,000 ML IV SCH (06:45)
[2021-01-01] MEDS ORDERED: Potassium Chloride 20 MEQ Tab.ER PO ONE (07:27)
[2021-01-01] MEDS ORDERED: Magnesium Sulfate/Water 2 GM in Premix Bag 1 BAG IV ONE (07:29)
[2021-01-01] MEDS: Pantoprazole 40 MG in Sodium Chloride 0.9% 10 ML IV SCH (08:07)
[2021-01-01] MEDS: Thiamine 200 MG/2 ML MDV IV SCH (08:07)
[2021-01-01] MEDS: Folic Acid 50 MG/10 ML MDV IV SCH (08:07)
--- NOTE | 2021-01-01 09:15 | CR ---
INDICATION: Pneumothorax. TECHNIQUE: Chest 1 view. COMPARISON: Chest radiograph 12/31/2020. FINDINGS: No definite residual pneumothorax identified. Small left pleural effusion. Left basilar atelectasis. Normal heart size and pulmonary vascularity. Nondisplaced left posterior 7th rib fracture. IMPRESSION: 1. No definite residual pneumothorax identified. 2. Small left pleural effusion and left basilar atelectasis. 3. Nondisplaced left posterior 7th rib fracture. Dictated by Kati Davis MD @ 01/01/2021 9:14:00 AM (Electronically Signed)
[2021-01-01] MEDS ORDERED: Diltiazem 120 MG Cap.CD PO ONE (09:36)
[2021-01-01] MEDS: Morphine 2 MG/ML SYRINGE IVPUSH PRN (09:39)
[2021-01-01] MEDS ORDERED: Metoprolol Tartrate 25 MG Tab PO SCH (10:00)
[2021-01-01] MEDS ORDERED: LORazepam 2 MG/ML SDV IVPUSH PRN (13:56)
[2021-01-01] MEDS ORDERED: Thiamine 200 MG/2 ML MDV IV SCH (14:00)
[2021-01-01] MEDS ORDERED: Thiamine 100 MG in Sodium Chloride 0.9% 100 ML IV SCH (14:00)
--- NOTE | 2021-01-01 14:27 | PCM.PN ---
<Dionisio Dietz - Last Filed: 01/01/21 14:22> - General Info Date of Service: 01/01/21 Subjective Update: Patient states fatigue, intermittent left-sided chest pain. Patient states normal appetite, denies nausea, vomiting, abdominal pain, fever, chills. Denies chest pain, shortness of breath, palpitations. - Review of Systems General: Denies: Fever, Chills Pulmonary: Denies: Shortness of Breath, Cough, Wheezing Cardiovascular: Reports: Chest Pain (Left-sided due to rib injury). Denies: Orthopnea, Edema Gastrointestinal: Denies: Abdominal Pain, Decreased Appetite, Nausea, Vomiting Neurological: Denies: Confusion, Dizziness Psychiatric: Denies: Confusion - Patient Data Vitals - Most Recent: Last Vital Signs Temp 97.3 F 01/01/21 14:00 Pulse 94 01/01/21 14:00 Resp 18 01/01/21 14:00 BP 137/79 01/01/21 14:00 Pulse Ox 95 01/01/21 14:00 Weight - Most Recent: 78.562 kg I&O - Last 24 Hours: Intake & Output 12/31/20 01/01/21 01/01/21 22:59 06:59 14:59 Intake Total 3899 1316 Output Total 1400 Balance 2499 1316 Lab Results Last 24 Hours: Laboratory Results - last 24 hr 01/01/21 01/01/21 Range/Units 05:31 05:31 WBC 5.48 (4.0-11.0) K/uL RBC 4.42 L (4.50-5.90) M/uL Hgb 14.6 (13.0-17.0) g/dL Hct 42.7 (38.0-50.0) % MCV 96.6 (80.0-98.0) fL MCH 33.0 H (27.0-32.0) pg MCHC 34.2 (31.0-37.0) g/dL RDW Std Deviation 45.4 (28.0-62.0) fl RDW Coeff of Maria C 13 (11.0-15.0) % Plt Count 66 L (150-400) K/uL MPV 12.60 H (7.40-12.00) fL Neut % (Auto) 62.5 (48.0-80.0) % Lymph % (Auto) 23.2 (16.0-40.0) % Harrison % (Auto) 10.4 (0.0-15.0) % Eos % (Auto) 3.5 (0.0-7.0) % Baso % (Auto) 0.4 (0.0-1.5) % Neut # (Auto) 3.4 (1.4-5.7) K/uL Lymph # (Auto) 1.3 (0.6-2.4) K/uL Harrison # (Auto) 0.6 (0.0-0.8) K/uL Eos # (Auto) 0.2 (0.0-0.7) K/uL Baso # (Auto) 0.0 (0.0-0.1) K/uL Nucleated RBC % 0.0 /100WBC Nucleated RBCs # 0 K/uL Sodium 141 (136-148) mmol/L Potassium 3.9 (3.5-5.1) mmol/L Chloride 105 (98-107) mmol/L Carbon Dioxide 31.3 (21.0-32.0) mmol/L BUN 10 (7.0-18.0) mg/dL Creatinine 0.7 L (0.8-1.3) mg/dL Est Cr Clr Drug Dosing 130.94 mL/min Estimated GFR (MDRD) > 60.0 ml/min Glucose 126 H (74-106) mg/dL Calcium 8.6 (8.5-10.1) mg/dL Magnesium 1.8 (1.8-2.4) mg/dL Total Bilirubin 1.0 (0.2-1.0) mg/dL AST 52 H (15-37) IU/L ALT 46 (14-63) IU/L Alkaline Phosphatase 107 (46-116) U/L Total Protein 6.8 (6.4-8.2) g/dL Albumin 2.6 L (3.4-5.0) g/dL Globulin 4.2 H (2.6-4.0) g/dL Albumin/Globulin Ratio 0.6 L (0.9-1.6) Med Orders - Current: Current Medications Chlordiazepoxide HCl (Chlordiazepoxide 5 Mg Cap) 5 mg PO BID [facility] Diltiazem HCl (Diltiazem 180 Mg Cap.Cd) 180 mg PO DAILY [facility] Folic Acid (Folic Acid 1 Mg Tab) 1 mg PO BEDTIME [facility] Lorazepam (Lorazepam 2 Mg/Ml Sdv) 0 mg IVPUSH Q4H PRN; Protocol PRN Reason: Withdrawal Symptoms Metoprolol Tartrate (Metoprolol Tartrate 25 Mg Tab) 25 mg PO Q12H [facility] Last Admin: 01/01/21 11:02 Dose: 25 mg Documented by: Pantoprazole Sodium (Pantoprazole 40 Mg Tab.Cr) 40 mg PO ACBREAKFAST [facility] Thiamine HCl (Thiamine 200 Mg/2 Ml Mdv) 100 mg IV Q24H [facility] Last Admin: 01/01/21 14:01 Dose: Not Given Documented by: Discontinued Medications Albuterol/Ipratropium (Albuterol/Ipratropium 3.0-0.5 Mg/3 Ml Neb Soln) 3 ml NEB Q4HRRT PRN PRN Reason: Shortness Of Breath/wheezing Chlordiazepoxide HCl (Chlordiazepoxide 10 Mg Cap) 10 mg PO BID [facility] Last Admin: 12/31/20 06:26 Dose: Not Given Documented by: Chlordiazepoxide HCl (Chlordiazepoxide 5 Mg Cap) 10 mg PO BID [facility] Last Admin: 01/01/21 08:07 Dose: 10 mg Documented by: Digoxin (Digoxin 500 Mcg/2 Ml Amp) 500 mcg IVPUSH ONETIME ONE Stop: 12/31/20 03:32 Last Admin: 12/31/20 03:37 Dose: 500 mcg Documented by: Digoxin (Digoxin 500 Mcg/2 Ml Amp) 250 mcg IVPUSH Q6H [facility] Stop: 12/31/20 16:16 Last Admin: 12/31/20 15:37 Dose: 250 mcg Documented by: Diltiazem HCl (Diltiazem 25 Mg/5 Ml Sdv) 10 mg IVPUSH ONETIME ONE Stop: 12/31/20 03:20 Last Admin: 12/31/20 03:22 Dose: 10 mg Documented by: Diltiazem HCl (Diltiazem 25 Mg/5 Ml Sdv) 10 mg IVPUSH ONETIME ONE Stop: 12/31/20 03:32 Last Admin: 12/31/20 03:33 Dose: 10 mg Documented by: Diltiazem HCl (Diltiazem 25 Mg/5 Ml Sdv) 10 mg IVPUSH ONETIME ONE Stop: 12/31/20 05:24 Last Admin: 12/31/20 05:28 Dose: 10 mg Documented by: Diltiazem HCl (Diltiazem Ir 30 Mg Tab) 30 mg PO Q6HR [facility] Last Admin: 01/01/21 05:01 Dose: 30 mg Documented by: Diltiazem HCl (Diltiazem 120 Mg Cap.Cd) 120 mg PO ONETIME ONE Stop: 01/01/21 09:37 Last Admin: 01/01/21 09:58 Dose: 120 mg Documented by: Enoxaparin Sodium (Enoxaparin 40 Mg/0.4 Ml Syringe) 40 mg SUBCUT Q24H [facility] Last Admin: 12/31/20 06:17 Dose: 40 mg Documented by: Folic Acid (Folic Acid 50 Mg/10 Ml Mdv) 1 mg IV DAILY [facility] Last Admin: 01/01/21 08:07 Dose: 1 mg Documented by: Diltiazem HCl 100 mg/ Sodium (Chloride) 100 mls @ 5 mls/hr IV NOW [facility]; Protocol Last Titration: 12/31/20 14:00 Dose: 0 mg/hr, 0 mls/hr Documented by: Sodium Chloride (Normal Saline) Confirm Administered Dose 100 mls @ as directed .ROUTE .STK-MED ONE Stop: 12/31/20 03:54 Last Admin: 12/31/20 04:29 Dose: Not Given Documented by: Lactated Ringer's (Ringers, Lactated) 1,000 mls @ 125 mls/hr IV ASDIRECTED [facility] Last Admin: 01/01/21 06:45 Dose: 125 mls/hr Documented by: Lactated Ringer's (Ringers, Lactated) 1,000 mls @ 999 mls/hr IV BOLUS ONE Stop: 12/31/20 07:02 Last Admin: 12/31/20 06:22 Dose: 999 mls/hr Documented by: Pantoprazole Sodium 40 mg/ (Sodium Chloride) 10 mls @ 300 mls/hr IV Q24H [facility] Last Admin: 01/01/21 08:07 Dose: 300 mls/hr Documented by: Magnesium Sulfate 2 gm/ Premix 50 mls @ 12.5 mls/hr IV ONETIME ONE Stop: 12/31/20 12:07 Last Admin: 12/31/20 08:20 Dose: 12.5 mls/hr Documented by: Magnesium Sulfate 2 gm/ Premix 50 mls @ 25 mls/hr IV ONETIME ONE Stop: 01/01/21 09:28 Last Admin: 01/01/21 08:01 Dose: 25 mls/hr Documented by: Lorazepam (Lorazepam 2 Mg/Ml Sdv) 1 mg IVPUSH ONETIME ONE Stop: 12/31/20 04:29 Last Admin: 12/31/20 04:34 Dose: 1 mg Documented by: Lorazepam (Lorazepam 2 Mg/Ml Sdv) 2 mg IVPUSH Q4H PRN; Protocol PRN Reason: Withdrawal Symptoms Last Admin: 01/01/21 07:57 Dose: 1 mg Documented by: Morphine Sulfate (Morphine 2 Mg/Ml Syringe) 1 mg IVPUSH Q4H PRN PRN Reason: Pain Last Admin: 01/01/21 09:39 Dose: 1 mg Documented by: Ondansetron HCl (Ondansetron 4 Mg/2 Ml Sdv) 4 mg IVPUSH Q4H PRN PRN Reason: Nausea/Vomiting Potassium Chloride (Potassium Chloride 20 Meq Tab.Er) 40 meq PO ONETIME ONE Stop: 12/31/20 08:09 Last Admin: 12/31/20 08:20 Dose: 40 meq Documented by: Potassium Chloride (Potassium Chloride 20 Meq Tab.Er) 20 meq PO ONETIME ONE Stop: 01/01/21 07:28 Last Admin: 01/01/21 08:01 Dose: 20 meq Documented by: Sodium Chloride (Sodium Chloride 0.9% 10 Ml Syringe) 10 ml FLUSH ASDIRECTED PRN PRN Reason: Keep Vein Open Last Admin: 12/31/20 03:23 Dose: 10 ml Documented by: Sodium Chloride (Sodium Chloride 0.9% 2.5 Ml Syringe) 2.5 ml FLUSH ASDIRECTED PRN PRN Reason: Keep Vein Open Last Admin: 12/31/20 03:23 Dose: 2.5 ml Documented by: Thiamine HCl (Thiamine 200 Mg/2 Ml Mdv) 100 mg IV DAILY [facility] Last Admin: 01/01/21 08:07 Dose: 100 mg Documented by: - Exam General: Alert, Oriented Lungs: Clear to Auscultation, Normal Respiratory Effort Cardiovascular: Irregular Rhythm (Atrial flutter), Tachycardia GI/Abdominal Exam: Soft, Non-Tender Extremities: No Pedal Edema Psy/Mental Status: Alert - Patient Data Lab Results Last 24 hrs: Laboratory Results - last 24 hr 01/01/21 01/01/21 Range/Units 05:31 05:31 WBC 5.48 (4.0-11.0) K/uL RBC 4.42 L (4.50-5.90) M/uL Hgb 14.6 (13.0-17.0) g/dL Hct 42.7 (38.0-50.0) % MCV 96.6 (80.0-98.0) fL MCH 33.0 H (27.0-32.0) pg MCHC 34.2 (31.0-37.0) g/dL RDW Std Deviation 45.4 (28.0-62.0) fl RDW Coeff of Maria C 13 (11.0-15.0) % Plt Count 66 L (150-400) K/uL MPV 12.60 H (7.40-12.00) fL Neut % (Auto) 62.5 (48.0-80.0) % Lymph % (Auto) 23.2 (16.0-40.0) % Harrison % (Auto) 10.4 (0.0-15.0) % Eos % (Auto) 3.5 (0.0-7.0) % Baso % (Auto) 0.4 (0.0-1.5) % Neut # (Auto) 3.4 (1.4-5.7) K/uL Lymph # (Auto) 1.3 (0.6-2.4) K/uL Harrison # (Auto) 0.6 (0.0-0.8) K/uL Eos # (Auto) 0.2 (0.0-0.7) K/uL Baso # (Auto) 0.0 (0.0-0.1) K/uL Nucleated RBC % 0.0 /100WBC Nucleated RBCs # 0 K/uL Sodium 141 (136-148) mmol/L Potassium 3.9 (3.5-5.1) mmol/L Chloride 105 (98-107) mmol/L Carbon Dioxide 31.3 (21.0-32.0) mmol/L BUN 10 (7.0-18.0) mg/dL Creatinine 0.7 L (0.8-1.3) mg/dL Est Cr Clr Drug Dosing 130.94 mL/min Estimated GFR (MDRD) > 60.0 ml/min Glucose 126 H (74-106) mg/dL Calcium 8.6 (8.5-10.1) mg/dL Magnesium 1.8 (1.8-2.4) mg/dL Total Bilirubin 1.0 (0.2-1.0) mg/dL AST 52 H (15-37) IU/L ALT 46 (14-63) IU/L Alkaline Phosphatase 107 (46-116) U/L Total Protein 6.8 (6.4-8.2) g/dL Albumin 2.6 L (3.4-5.0) g/dL Globulin 4.2 H (2.6-4.0) g/dL Albumin/Globulin Ratio 0.6 L (0.9-1.6) Result Diagrams: 01/01/21 05:31 01/01/21 05:31 Sepsis Event Note - Evaluation Sepsis Screening Result: No Definite Risk - Focused Exam Vital Signs: Vital Signs Temp Pulse Pulse Resp BP BP Pulse Ox 01/01/21 14:00 97.3 F 94 18 137/79 95 01/01/21 13:00 98.1 F 97 16 140/74 92 L 01/01/21 12:00 96.9 F 85 18 132/79 93 L 01/01/21 11:02 94 120/73 01/01/21 11:00 97.1 F 94 16 120/73 94 L 01/01/21 10:00 98.9 F 105 H 18 134/86 90 L 01/01/21 09:58 105 H 134/86 01/01/21 09:00 98.1 F 78 16 134/86 99 01/01/21 08:00 97.4 F 81 19 144/89 H 99 01/01/21 07:00 20 137/79 95 01/01/21 06:02 98 01/01/21 06:00 21 H 141/80 H 98 01/01/21 05:00 16 139/93 H 95 01/01/21 04:00 97.6 F 22 H 154/98 H 100 01/01/21 03:00 24 H 134/85 90 L Pulse Ox 01/01/21 14:00 01/01/21 13:00 01/01/21 12:00 01/01/21 11:02 01/01/21 11:00 01/01/21 10:00 01/01/21 09:58 01/01/21 09:00 01/01/21 08:00 01/01/21 07:00 01/01/21 06:02 98 01/01/21 06:00 01/01/21 05:00 01/01/21 04:00 01/01/21 03:00 - Problem List & Annotations (1) Atrial flutter with rapid ventricular response SNOMED Code(s): 0299707, 7394315 Code(s): I48.92 - UNSPECIFIED ATRIAL FLUTTER Status: Acute Current Visit: Yes (2) Pneumothorax SNOMED Code(s): 97624597 Code(s): J93.9 - PNEUMOTHORAX, UNSPECIFIED Status: Acute Current Visit: Yes (3) Chest pain SNOMED Code(s): 37388412 Code(s): R07.9 - CHEST PAIN, UNSPECIFIED Status: Acute Current Visit: No (4) Left rib fracture SNOMED Code(s): 97262213 Code(s): S22.32XA - FRACTURE OF ONE RIB, LEFT SIDE, INIT FOR CLOS FX Status: Acute Current Visit: No Qualifiers: Rib fracture type: single rib Fracture type: closed - Problem List Review Problem List Initiated/Reviewed/Updated: Yes - My Orders Last 24 Hours: My Active Orders 12/31/20 13:32 Antiembolic Devices [RC] PER UNIT ROUTINE SCD [Sequential Compression Device] [OM.PC] Routine 01/01/21 13:48 Transfer Patient (Change bed) [ADT] Routine 01/02/21 09:00 Diltiazem [Cardizem CD] 180 mg PO DAILY - Plan Plan:: A flutter- Cardizem 120 mg CD every 24 hour. Will order Cardizem 180 mg CD every 24 hours starting tomorrow. Also started metoprolol tartrate 25 mg twice daily as patient has bouts of tachycardia Potassium over 4, magnesium over 2. Alcohol withdrawal- Librium 10 mg p.o. twice daily, CIWA protocol, thiamine, folic acid, Zofran, Protonix. SCDs due to decreased platelet count. Patient downgraded to Med/Surg status. <Sergio,Hooria - Last Filed: 01/01/21 15:14> - Patient Data Vitals - Most Recent: Last Vital Signs Temp 36.3 C 01/01/21 14:00 Pulse 90 01/01/21 15:00 Resp 16 01/01/21 15:00 BP 130/84 01/01/21 15:00 Pulse Ox 94 L 01/01/21 15:00 I&O - Last 24 Hours: Intake & Output 01/01/21 01/01/21 01/01/21 06:59 14:59 22:59 Intake Total 1316 Balance 1316 Lab Results Last 24 Hours: Laboratory Results - last 24 hr 01/01/21 01/01/21 Range/Units 05:31 05:31 WBC 5.48 (4.0-11.0) K/uL RBC 4.42 L (4.50-5.90) M/uL Hgb 14.6 (13.0-17.0) g/dL Hct 42.7 (38.0-50.0) % MCV 96.6 (80.0-98.0) fL MCH 33.0 H (27.0-32.0) pg MCHC 34.2 (31.0-37.0) g/dL RDW Std Deviation 45.4 (28.0-62.0) fl RDW Coeff of Maria C 13 (11.0-15.0) % Plt Count 66 L (150-400) K/uL MPV 12.60 H (7.40-12.00) fL Neut % (Auto) 62.5 (48.0-80.0) % Lymph % (Auto) 23.2 (16.0-40.0) % Harrison % (Auto) 10.4 (0.0-15.0) % Eos % (Auto) 3.5 (0.0-7.0) % Baso % (Auto) 0.4 (0.0-1.5) % Neut # (Auto) 3.4 (1.4-5.7) K/uL Lymph # (Auto) 1.3 (0.6-2.4) K/uL Harrison # (Auto) 0.6 (0.0-0.8) K/uL Eos # (Auto) 0.2 (0.0-0.7) K/uL Baso # (Auto) 0.0 (0.0-0.1) K/uL Nucleated RBC % 0.0 /100WBC Nucleated RBCs # 0 K/uL Sodium 141 (136-148) mmol/L Potassium 3.9 (3.5-5.1) mmol/L Chloride 105 (98-107) mmol/L Carbon Dioxide 31.3 (21.0-32.0) mmol/L BUN 10 (7.0-18.0) mg/dL Creatinine 0.7 L (0.8-1.3) mg/dL Est Cr Clr Drug Dosing 130.94 mL/min Estimated GFR (MDRD) > 60.0 ml/min Glucose 126 H (74-106) mg/dL Calcium 8.6 (8.5-10.1) mg/dL Magnesium 1.8 (1.8-2.4) mg/dL Total Bilirubin 1.0 (0.2-1.0) mg/dL AST 52 H (15-37) IU/L ALT 46 (14-63) IU/L Alkaline Phosphatase 107 (46-116) U/L Total Protein 6.8 (6.4-8.2) g/dL Albumin 2.6 L (3.4-5.0) g/dL Globulin 4.2 H (2.6-4.0) g/dL Albumin/Globulin Ratio 0.6 L (0.9-1.6) Med Orders - Current: Current Medications Chlordiazepoxide HCl (Chlordiazepoxide 5 Mg Cap) 5 mg PO BID [facility] Diltiazem HCl (Diltiazem 180 Mg Cap.Cd) 180 mg PO DAILY [facility] Folic Acid (Folic Acid 1 Mg Tab) 1 mg PO BEDTIME [facility] Lorazepam (Lorazepam 2 Mg/Ml Sdv) 0 mg IVPUSH Q4H PRN; Protocol PRN Reason: Withdrawal Symptoms Metoprolol Tartrate (Metoprolol Tartrate 25 Mg Tab) 25 mg PO Q12H [facility] Last Admin: 01/01/21 11:02 Dose: 25 mg Documented by: Pantoprazole Sodium (Pantoprazole 40 Mg Tab.Cr) 40 mg PO ACBREAKFAST [facility] Thiamine HCl (Thiamine 200 Mg/2 Ml Mdv) 100 mg IV Q24H [facility] Last Admin: 01/01/21 14:01 Dose: Not Given Documented by: Discontinued Medications Albuterol/Ipratropium (Albuterol/Ipratropium 3.0-0.5 Mg/3 Ml Neb Soln) 3 ml NEB Q4HRRT PRN PRN Reason: Shortness Of Breath/wheezing Chlordiazepoxide HCl (Chlordiazepoxide 10 Mg Cap) 10 mg PO BID [facility] Last Admin: 12/31/20 06:26 Dose: Not Given Documented by: Chlordiazepoxide HCl (Chlordiazepoxide 5 Mg Cap) 10 mg PO BID [facility] Last Admin: 01/01/21 08:07 Dose: 10 mg Documented by: Digoxin (Digoxin 500 Mcg/2 Ml Amp) 500 mcg IVPUSH ONETIME ONE Stop: 12/31/20 03:32 Last Admin: 12/31/20 03:37 Dose: 500 mcg Documented by: Digoxin (Digoxin 500 Mcg/2 Ml Amp) 250 mcg IVPUSH Q6H [facility] Stop: 12/31/20 16:16 Last Admin: 12/31/20 15:37 Dose: 250 mcg Documented by: Diltiazem HCl (Diltiazem 25 Mg/5 Ml Sdv) 10 mg IVPUSH ONETIME ONE Stop: 12/31/20 03:20 Last Admin: 12/31/20 03:22 Dose: 10 mg Documented by: Diltiazem HCl (Diltiazem 25 Mg/5 Ml Sdv) 10 mg IVPUSH ONETIME ONE Stop: 12/31/20 03:32 Last Admin: 12/31/20 03:33 Dose: 10 mg Documented by: Diltiazem HCl (Diltiazem 25 Mg/5 Ml Sdv) 10 mg IVPUSH ONETIME ONE Stop: 12/31/20 05:24 Last Admin: 12/31/20 05:28 Dose: 10 mg Documented by: Diltiazem HCl (Diltiazem Ir 30 Mg Tab) 30 mg PO Q6HR [facility] Last Admin: 01/01/21 05:01 Dose: 30 mg Documented by: Diltiazem HCl (Diltiazem 120 Mg Cap.Cd) 120 mg PO ONETIME ONE Stop: 01/01/21 09:37 Last Admin: 01/01/21 09:58 Dose: 120 mg Documented by: Enoxaparin Sodium (Enoxaparin 40 Mg/0.4 Ml Syringe) 40 mg SUBCUT Q24H [facility] Last Admin: 12/31/20 06:17 Dose: 40 mg Documented by: Folic Acid (Folic Acid 50 Mg/10 Ml Mdv) 1 mg IV DAILY [facility] Last Admin: 01/01/21 08:07 Dose: 1 mg Documented by: Diltiazem HCl 100 mg/ Sodium (Chloride) 100 mls @ 5 mls/hr IV NOW [facility]; Protocol Last Titration: 12/31/20 14:00 Dose: 0 mg/hr, 0 mls/hr Documented by: Sodium Chloride (Normal Saline) Confirm Administered Dose 100 mls @ as directed .ROUTE .STK-MED ONE Stop: 12/31/20 03:54 Last Admin: 12/31/20 04:29 Dose: Not Given Documented by: Lactated Ringer's (Ringers, Lactated) 1,000 mls @ 125 mls/hr IV ASDIRECTED [facility] Last Admin: 01/01/21 06:45 Dose: 125 mls/hr Documented by: Lactated Ringer's (Ringers, Lactated) 1,000 mls @ 999 mls/hr IV BOLUS ONE Stop: 12/31/20 07:02 Last Admin: 12/31/20 06:22 Dose: 999 mls/hr Documented by: Pantoprazole Sodium 40 mg/ (Sodium Chloride) 10 mls @ 300 mls/hr IV Q24H [facility] Last Admin: 01/01/21 08:07 Dose: 300 mls/hr Documented by: Magnesium Sulfate 2 gm/ Premix 50 mls @ 12.5 mls/hr IV ONETIME ONE Stop: 12/31/20 12:07 Last Admin: 12/31/20 08:20 Dose: 12.5 mls/hr Documented by: Magnesium Sulfate 2 gm/ Premix 50 mls @ 25 mls/hr IV ONETIME ONE Stop: 01/01/21 09:28 Last Admin: 01/01/21 08:01 Dose: 25 mls/hr Documented by: Lorazepam (Lorazepam 2 Mg/Ml Sdv) 1 mg IVPUSH ONETIME ONE Stop: 12/31/20 04:29 Last Admin: 12/31/20 04:34 Dose: 1 mg Documented by: Lorazepam (Lorazepam 2 Mg/Ml Sdv) 2 mg IVPUSH Q4H PRN; Protocol PRN Reason: Withdrawal Symptoms Last Admin: 01/01/21 07:57 Dose: 1 mg Documented by: Morphine Sulfate (Morphine 2 Mg/Ml Syringe) 1 mg IVPUSH Q4H PRN PRN Reason: Pain Last Admin: 01/01/21 09:39 Dose: 1 mg Documented by: Ondansetron HCl (Ondansetron 4 Mg/2 Ml Sdv) 4 mg IVPUSH Q4H PRN PRN Reason: Nausea/Vomiting Potassium Chloride (Potassium Chloride 20 Meq Tab.Er) 40 meq PO ONETIME ONE Stop: 12/31/20 08:09 Last Admin: 12/31/20 08:20 Dose: 40 meq Documented by: Potassium Chloride (Potassium Chloride 20 Meq Tab.Er) 20 meq PO ONETIME ONE Stop: 01/01/21 07:28 Last Admin: 01/01/21 08:01 Dose: 20 meq Documented by: Sodium Chloride (Sodium Chloride 0.9% 10 Ml Syringe) 10 ml FLUSH ASDIRECTED PRN PRN Reason: Keep Vein Open Last Admin: 12/31/20 03:23 Dose: 10 ml Documented by: Sodium Chloride (Sodium Chloride 0.9% 2.5 Ml Syringe) 2.5 ml FLUSH ASDIRECTED PRN PRN Reason: Keep Vein Open Last Admin: 12/31/20 03:23 Dose: 2.5 ml Documented by: Thiamine HCl (Thiamine 200 Mg/2 Ml Mdv) 100 mg IV DAILY [facility] Last Admin: 01/01/21 08:07 Dose: 100 mg Documented by: - Patient Data Lab Results Last 24 hrs: Laboratory Results - last 24 hr 01/01/21 01/01/21 Range/Units 05:31 05:31 WBC 5.48 (4.0-11.0) K/uL RBC 4.42 L (4.50-5.90) M/uL Hgb 14.6 (13.0-17.0) g/dL Hct 42.7 (38.0-50.0) % MCV 96.6 (80.0-98.0) fL MCH 33.0 H (27.0-32.0) pg MCHC 34.2 (31.0-37.0) g/dL RDW Std Deviation 45.4 (28.0-62.0) fl RDW Coeff of Maria C 13 (11.0-15.0) % Plt Count 66 L (150-400) K/uL MPV 12.60 H (7.40-12.00) fL Neut % (Auto) 62.5 (48.0-80.0) % Lymph % (Auto) 23.2 (16.0-40.0) % Harrison % (Auto) 10.4 (0.0-15.0) % Eos % (Auto) 3.5 (0.0-7.0) % Baso % (Auto) 0.4 (0.0-1.5) % Neut # (Auto) 3.4 (1.4-5.7) K/uL Lymph # (Auto) 1.3 (0.6-2.4) K/uL Harrison # (Auto) 0.6 (0.0-0.8) K/uL Eos # (Auto) 0.2 (0.0-0.7) K/uL Baso # (Auto) 0.0 (0.0-0.1) K/uL Nucleated RBC % 0.0 /100WBC Nucleated RBCs # 0 K/uL Sodium 141 (136-148) mmol/L Potassium 3.9 (3.5-5.1) mmol/L Chloride 105 (98-107) mmol/L Carbon Dioxide 31.3 (21.0-32.0) mmol/L BUN 10 (7.0-18.0) mg/dL Creatinine 0.7 L (0.8-1.3) mg/dL Est Cr Clr Drug Dosing 130.94 mL/min Estimated GFR (MDRD) > 60.0 ml/min Glucose 126 H (74-106) mg/dL Calcium 8.6 (8.5-10.1) mg/dL Magnesium 1.8 (1.8-2.4) mg/dL Total Bilirubin 1.0 (0.2-1.0) mg/dL AST 52 H (15-37) IU/L ALT 46 (14-63) IU/L Alkaline Phosphatase 107 (46-116) U/L Total Protein 6.8 (6.4-8.2) g/dL Albumin 2.6 L (3.4-5.0) g/dL Globulin 4.2 H (2.6-4.0) g/dL Albumin/Globulin Ratio 0.6 L (0.9-1.6) Result Diagrams: 01/01/21 05:31 01/01/21 05:31 Sepsis Event Note - Focused Exam Vital Signs: Vital Signs Temp Pulse Pulse Resp BP BP Pulse Ox 01/01/21 15:00 90 16 130/84 94 L 01/01/21 14:00 36.3 C 94 18 137/79 95 01/01/21 13:00 36.7 C 97 16 140/74 92 L 01/01/21 12:00 36.1 C 85 18 132/79 93 L 01/01/21 11:02 94 120/73 01/01/21 11:00 36.2 C 94 16 120/73 94 L 01/01/21 10:00 37.2 C 105 H 18 134/86 90 L 01/01/21 09:58 105 H 134/86 01/01/21 09:00 36.7 C 78 16 134/86 99 01/01/21 08:00 36.3 C 81 19 144/89 H 99 01/01/21 07:00 20 137/79 95 01/01/21 06:02 98 01/01/21 06:00 21 H 141/80 H 98 01/01/21 05:00 16 139/93 H 95 01/01/21 04:00 36.4 C 22 H 154/98 H 100 Pulse Ox 01/01/21 15:00 01/01/21 14:00 01/01/21 13:00 01/01/21 12:00 01/01/21 11:02 01/01/21 11:00 01/01/21 10:00 01/01/21 09:58 01/01/21 09:00 01/01/21 08:00 01/01/21 07:00 01/01/21 06:02 98 01/01/21 06:00 01/01/21 05:00 01/01/21 04:00 - Problem List & Annotations (1) Alcohol withdrawal SNOMED Code(s): 231094863 Code(s): F10.239 - ALCOHOL DEPENDENCE WITH WITHDRAWAL, UNSPECIFIED Status: Acute Current Visit: Yes (2) Atrial flutter with rapid ventricular response SNOMED Code(s): 3239953, 7022736 Code(s): I48.92 - UNSPECIFIED ATRIAL FLUTTER Status: Acute Current Visit: Yes (3) Pneumothorax SNOMED Code(s): 92888420 Code(s): J93.9 - PNEUMOTHORAX, UNSPECIFIED Status: Acute Current Visit: Yes - My Orders Last 24 Hours: My Active Orders 01/01/21 13:56 LORazepam [Ativan] See Protocol IVPUSH Q4H PRN 01/01/21 13:58 Transfer Patient (Change bed) [ADT] Routine 01/01/21 13:59 Out of Bed [RC] Q8HR 01/01/21 14:00 Thiamine [Vitamin B-1] 100 mg IV Q24H 01/01/21 21:00 Folic Acid 1 mg PO BEDTIME 01/02/21 07:30 Pantoprazole [ProTONIX] 40 mg PO ACBREAKFAST - Plan Plan:: I have seen and evaluated the patient and agree with the residents note unless specified in my note
--- NOTE | 2021-01-01 15:50 | PCM.DCSUM1 ---
Discharge Summary - Discharge Data Discharge Disposition: Against Medical Advice 07 Condition: Stable - Referral to Home Health Primary Care Physician: PCP None - Discharge Diagnosis/Problem(s) (1) Alcohol withdrawal SNOMED Code(s): 697311354 ICD Code: F10.239 - ALCOHOL DEPENDENCE WITH WITHDRAWAL, UNSPECIFIED Status: Acute Current Visit: Yes (2) Atrial flutter with rapid ventricular response SNOMED Code(s): 0800093, 4351353 ICD Code: I48.92 - UNSPECIFIED ATRIAL FLUTTER Status: Acute Current Visit: Yes (3) Pneumothorax SNOMED Code(s): 82374951 ICD Code: J93.9 - PNEUMOTHORAX, UNSPECIFIED Status: Acute Current Visit: Yes - Discharge Plan Prescriptions/Med Rec: dilTIAZem HCL [Cardizem Cd] 180 mg PO DAILY #30 cap.er.24h Metoprolol Tartrate [Lopressor] 25 mg PO Q12H #60 tablet Home Medications: Home Meds Metoprolol Tartrate [Lopressor] 25 mg PO Q12H #60 tablet 01/01/21 [Rx] dilTIAZem HCL [Cardizem Cd] 180 mg PO DAILY #30 cap.er.24h 01/01/21 [Rx] Forms: ED Department Discharge Referrals: PCP,None [Primary Care Provider] - - Patient Data Vitals - Most Recent: Last Vital Signs Temp 36.3 C 01/01/21 14:00 Pulse 90 01/01/21 15:00 Resp 16 01/01/21 15:00 BP 130/84 01/01/21 15:00 Pulse Ox 94 L 01/01/21 15:00 Weight - Most Recent: 78.562 kg I&O - Last 24 hours: Intake & Output 01/01/21 01/01/21 01/01/21 06:59 14:59 22:59 Intake Total 1316 1600 Output Total 1800 Balance 1316 -200 Lab Results - Last 24 hrs: Laboratory Results - last 24 hr 01/01/21 01/01/21 Range/Units 05:31 05:31 WBC 5.48 (4.0-11.0) K/uL RBC 4.42 L (4.50-5.90) M/uL Hgb 14.6 (13.0-17.0) g/dL Hct 42.7 (38.0-50.0) % MCV 96.6 (80.0-98.0) fL MCH 33.0 H (27.0-32.0) pg MCHC 34.2 (31.0-37.0) g/dL RDW Std Deviation 45.4 (28.0-62.0) fl RDW Coeff of Maria C 13 (11.0-15.0) % Plt Count 66 L (150-400) K/uL MPV 12.60 H (7.40-12.00) fL Neut % (Auto) 62.5 (48.0-80.0) % Lymph % (Auto) 23.2 (16.0-40.0) % [place] % (Auto) 10.4 (0.0-15.0) % Eos % (Auto) 3.5 (0.0-7.0) % Baso % (Auto) 0.4 (0.0-1.5) % Neut # (Auto) 3.4 (1.4-5.7) K/uL Lymph # (Auto) 1.3 (0.6-2.4) K/uL [place] # (Auto) 0.6 (0.0-0.8) K/uL Eos # (Auto) 0.2 (0.0-0.7) K/uL Baso # (Auto) 0.0 (0.0-0.1) K/uL Nucleated RBC % 0.0 /100WBC Nucleated RBCs # 0 K/uL Sodium 141 (136-148) mmol/L Potassium 3.9 (3.5-5.1) mmol/L Chloride 105 (98-107) mmol/L Carbon Dioxide 31.3 (21.0-32.0) mmol/L BUN 10 (7.0-18.0) mg/dL Creatinine 0.7 L (0.8-1.3) mg/dL Est Cr Clr Drug Dosing 130.94 mL/min Estimated GFR (MDRD) > 60.0 ml/min Glucose 126 H (74-106) mg/dL Calcium 8.6 (8.5-10.1) mg/dL Magnesium 1.8 (1.8-2.4) mg/dL Total Bilirubin 1.0 (0.2-1.0) mg/dL AST 52 H (15-37) IU/L ALT 46 (14-63) IU/L Alkaline Phosphatase 107 (46-116) U/L Total Protein 6.8 (6.4-8.2) g/dL Albumin 2.6 L (3.4-5.0) g/dL Globulin 4.2 H (2.6-4.0) g/dL Albumin/Globulin Ratio 0.6 L (0.9-1.6) Med Orders - Current: Current Medications Chlordiazepoxide HCl (Chlordiazepoxide 5 Mg Cap) 5 mg PO BID [facility] Diltiazem HCl (Diltiazem 180 Mg Cap.Cd) 180 mg PO DAILY [facility] Folic Acid (Folic Acid 1 Mg Tab) 1 mg PO BEDTIME [facility] Lorazepam (Lorazepam 2 Mg/Ml Sdv) 0 mg IVPUSH Q4H PRN; Protocol PRN Reason: Withdrawal Symptoms Metoprolol Tartrate (Metoprolol Tartrate 25 Mg Tab) 25 mg PO Q12H [facility] Last Admin: 01/01/21 11:02 Dose: 25 mg Documented by: Pantoprazole Sodium (Pantoprazole 40 Mg Tab.Cr) 40 mg PO ACBREAKFAST [facility] Thiamine HCl (Thiamine 200 Mg/2 Ml Mdv) 100 mg IV Q24H [facility] Last Admin: 01/01/21 14:01 Dose: Not Given Documented by: Discontinued Medications Albuterol/Ipratropium (Albuterol/Ipratropium 3.0-0.5 Mg/3 Ml Neb Soln) 3 ml NEB Q4HRRT PRN PRN Reason: Shortness Of Breath/wheezing Chlordiazepoxide HCl (Chlordiazepoxide 10 Mg Cap) 10 mg PO BID [facility] Last Admin: 12/31/20 06:26 Dose: Not Given Documented by: Chlordiazepoxide HCl (Chlordiazepoxide 5 Mg Cap) 10 mg PO BID [facility] Last Admin: 01/01/21 08:07 Dose: 10 mg Documented by: Digoxin (Digoxin 500 Mcg/2 Ml Amp) 500 mcg IVPUSH ONETIME ONE Stop: 12/31/20 03:32 Last Admin: 12/31/20 03:37 Dose: 500 mcg Documented by: Digoxin (Digoxin 500 Mcg/2 Ml Amp) 250 mcg IVPUSH Q6H [facility] Stop: 12/31/20 16:16 Last Admin: 12/31/20 15:37 Dose: 250 mcg Documented by: Diltiazem HCl (Diltiazem 25 Mg/5 Ml Sdv) 10 mg IVPUSH ONETIME ONE Stop: 12/31/20 03:20 Last Admin: 12/31/20 03:22 Dose: 10 mg Documented by: Diltiazem HCl (Diltiazem 25 Mg/5 Ml Sdv) 10 mg IVPUSH ONETIME ONE Stop: 12/31/20 03:32 Last Admin: 12/31/20 03:33 Dose: 10 mg Documented by: Diltiazem HCl (Diltiazem 25 Mg/5 Ml Sdv) 10 mg IVPUSH ONETIME ONE Stop: 12/31/20 05:24 Last Admin: 12/31/20 05:28 Dose: 10 mg Documented by: Diltiazem HCl (Diltiazem Ir 30 Mg Tab) 30 mg PO Q6HR [facility] Last Admin: 01/01/21 05:01 Dose: 30 mg Documented by: Diltiazem HCl (Diltiazem 120 Mg Cap.Cd) 120 mg PO ONETIME ONE Stop: 01/01/21 09:37 Last Admin: 01/01/21 09:58 Dose: 120 mg Documented by: Enoxaparin Sodium (Enoxaparin 40 Mg/0.4 Ml Syringe) 40 mg SUBCUT Q24H [facility] Last Admin: 12/31/20 06:17 Dose: 40 mg Documented by: Folic Acid (Folic Acid 50 Mg/10 Ml Mdv) 1 mg IV DAILY [facility] Last Admin: 01/01/21 08:07 Dose: 1 mg Documented by: Diltiazem HCl 100 mg/ Sodium (Chloride) 100 mls @ 5 mls/hr IV NOW [facility]; Protocol Last Titration: 12/31/20 14:00 Dose: 0 mg/hr, 0 mls/hr Documented by: Sodium Chloride (Normal Saline) Confirm Administered Dose 100 mls @ as directed .ROUTE .STK-MED ONE Stop: 12/31/20 03:54 Last Admin: 12/31/20 04:29 Dose: Not Given Documented by: Lactated Ringer's (Ringers, Lactated) 1,000 mls @ 125 mls/hr IV ASDIRECTED [facility] Last Admin: 01/01/21 06:45 Dose: 125 mls/hr Documented by: Lactated Ringer's (Ringers, Lactated) 1,000 mls @ 999 mls/hr IV BOLUS ONE Stop: 12/31/20 07:02 Last Admin: 12/31/20 06:22 Dose: 999 mls/hr Documented by: Pantoprazole Sodium 40 mg/ (Sodium Chloride) 10 mls @ 300 mls/hr IV Q24H [facility] Last Admin: 01/01/21 08:07 Dose: 300 mls/hr Documented by: Magnesium Sulfate 2 gm/ Premix 50 mls @ 12.5 mls/hr IV ONETIME ONE Stop: 12/31/20 12:07 Last Admin: 12/31/20 08:20 Dose: 12.5 mls/hr Documented by: Magnesium Sulfate 2 gm/ Premix 50 mls @ 25 mls/hr IV ONETIME ONE Stop: 01/01/21 09:28 Last Admin: 01/01/21 08:01 Dose: 25 mls/hr Documented by: Lorazepam (Lorazepam 2 Mg/Ml Sdv) 1 mg IVPUSH ONETIME ONE Stop: 12/31/20 04:29 Last Admin: 12/31/20 04:34 Dose: 1 mg Documented by: Lorazepam (Lorazepam 2 Mg/Ml Sdv) 2 mg IVPUSH Q4H PRN; Protocol PRN Reason: Withdrawal Symptoms Last Admin: 01/01/21 07:57 Dose: 1 mg Documented by: Morphine Sulfate (Morphine 2 Mg/Ml Syringe) 1 mg IVPUSH Q4H PRN PRN Reason: Pain Last Admin: 01/01/21 09:39 Dose: 1 mg Documented by: Ondansetron HCl (Ondansetron 4 Mg/2 Ml Sdv) 4 mg IVPUSH Q4H PRN PRN Reason: Nausea/Vomiting Potassium Chloride (Potassium Chloride 20 Meq Tab.Er) 40 meq PO ONETIME ONE Stop: 12/31/20 08:09 Last Admin: 12/31/20 08:20 Dose: 40 meq Documented by: Potassium Chloride (Potassium Chloride 20 Meq Tab.Er) 20 meq PO ONETIME ONE Stop: 01/01/21 07:28 Last Admin: 01/01/21 08:01 Dose: 20 meq Documented by: Sodium Chloride (Sodium Chloride 0.9% 10 Ml Syringe) 10 ml FLUSH ASDIRECTED PRN PRN Reason: Keep Vein Open Last Admin: 12/31/20 03:23 Dose: 10 ml Documented by: Sodium Chloride (Sodium Chloride 0.9% 2.5 Ml Syringe) 2.5 ml FLUSH ASDIRECTED PRN PRN Reason: Keep Vein Open Last Admin: 12/31/20 03:23 Dose: 2.5 ml Documented by: Thiamine HCl (Thiamine 200 Mg/2 Ml Mdv) 100 mg IV DAILY [facility] Last Admin: 01/01/21 08:07 Dose: 100 mg Documented by:
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
[2021-01-01] MEDS ORDERED: Folic Acid 1 MG Tab PO SCH (21:00)
[2021-01-02] MEDS ORDERED: Pantoprazole 40 MG Tab.CR PO SCH (07:30)
[2021-01-02] MEDS ORDERED: Diltiazem 180 MG Cap.CD PO SCH (09:00)
--- NOTE | 2021-01-04 14:18 | ECHO ---
EXAM DATE: 12/31/20 PATIENT'S AGE: 55 The ECHO report has been scanned into [facility] [employer] and can be seen in this patient's EMR (Electronic Medical Record) under the REPORTS section. The report has also been scanned into PACS. JD
== END 2021-01-01 16:05 | disposition left against medical advice (07) | DRG 309 ==
LOC: MW.ED 03:06 → MW.ICU 04:59 → UNDOADMIN 04:59
PROVIDERS: ADMIT Student in an Organized Health Care Education/Training Program; ATTEND Student in an Organized Health Care Education/Training Program
DX: I48.92 Unspecified atrial flutter (principal); J93.9 Pneumothorax, unspecified; F10.239 Alcohol dependence with withdrawal, unspecified; I48.91 Unspecified atrial fibrillation; I10 Essential (primary) hypertension; J44.9 Chronic obstructive pulmonary disease, unspecified; G89.29 Other chronic pain; M54.9 Dorsalgia, unspecified; Z20.822 Contact with and (suspected) exposure to COVID-19; Z59.0 Homelessness; Z88.0 Allergy status to penicillin; I25.2 Old myocardial infarction; Z86.19 Personal history of other infectious and parasitic diseases; Z79.899 Other long term (current) drug therapy; F10.129 Alcohol abuse with intoxication, unspecified; V29.9XXD Motorcycle rider (driver) (passenger) injured in unspecified traffic accident, subsequent encounter; S22.32XD Fracture of one rib, left side, subsequent encounter for fracture with routine healing
CPT/HCPCS: 36415; 71045; 71045-26; 80053; 80305-QW; 80307; 83690; 83735; 84443; 84484; 85025; 85610; 93005; 93306; 96365; 96375; 96376; 99285-25; A9270-GY; C9113; J1160; J1650; J2060; J2270; J3411; J3475; J3490; J7120; U0002

== ENCOUNTER 2021-05-09 20:27 | Observation (INO) | payer BC, MEDICAID ==
[2021-05-09] MEDS ORDERED: Sodium Chloride 0.9% 1,000 ML IV ONE (20:35)
[2021-05-09] MEDS ORDERED: Aspirin 81 MG Tab.Chew PO ONE (20:35)
[2021-05-09] MEDS ORDERED: Diltiazem 25 MG/5 ML SDV IVPUSH ONE (21:00)
[2021-05-09 21:12] LABS: BLOOD UREA NITROGEN,BUN 11 mg/dL (7.0-18.0); CARBON DIOXIDE,CO2 25.8 mmol/L (21.0-32.0); CHLORIDE,CL 101 mmol/L (98-107); GLUCOSE RANDOM 97 mg/dL (74-106); POTASSIUM,K 4.5 mmol/L (3.5-5.1); SODIUM,NA 137 mmol/L (136-148)
[2021-05-09] MEDS ORDERED: Diltiazem 100 MG in Sodium Chloride 0.9% 100 ML IV SCH (21:15)
[2021-05-10] MEDS ORDERED: chlordiazePOXIDE 25 MG Cap PO ONE (01:02)
[2021-05-10] MEDS ORDERED: Metoprolol Tartrate 50 MG Tab PO ONE (01:37)
[2021-05-10] MEDS ORDERED: Diltiazem 25 MG/5 ML SDV IV PRN ×2 (05:49→08:15)
[2021-05-10] MEDS ORDERED: Ondansetron 4 MG/2 ML SDV IVPUSH PRN (05:57)
[2021-05-10] MEDS ORDERED: Albuterol/Ipratropium 3.0-0.5 MG/3 ML Neb Soln NEB PRN (05:58)
[2021-05-10] MEDS ORDERED: LORazepam 2 MG/ML SDV IVPUSH PRN (05:59)
[2021-05-10] MEDS: Diltiazem 180 MG Cap.CD PO SCH ×2 (06:08→08:30)
[2021-05-10] MEDS: Metoprolol Tartrate 25 MG Tab PO SCH ×2 (06:08→17:25)
[2021-05-10] MEDS: Lactated Ringers 1,000 ML IV SCH ×3 (06:55→23:48)
[2021-05-10] MEDS ORDERED: Folic Acid 50 MG/10 ML MDV IV SCH (09:00)
[2021-05-10] MEDS ORDERED: Thiamine 100 MG in Sodium Chloride 0.9% 100 ML IV SCH (09:00)
[2021-05-10] MEDS ORDERED: Thiamine 200 MG/2 ML MDV IVPUSH SCH (09:00)
[2021-05-10] MEDS: Pantoprazole 40 MG in Sodium Chloride 0.9% 10 ML IVPUSH SCH (09:37)
[2021-05-10] MEDS: Heparin Sodium 5,000 Units/ML Vial SUBCUT SCH ×2 (09:38→20:33)
[2021-05-10] MEDS ORDERED: Diltiazem 25 MG/5 ML SDV IVPUSH ONE (10:09)
[2021-05-10] MEDS ORDERED: Diltiazem 100 MG in Sodium Chloride 0.9% 100 ML IV SCH (10:15)
[2021-05-10] MEDS: Folic Acid 1 MG Tab PO SCH (12:18)
[2021-05-10] MEDS ORDERED: Metoprolol Tartrate 25 MG Tab PO ONE (19:27)
[2021-05-10] MEDS ORDERED: chlordiazePOXIDE 10 MG Cap PO SCH (21:00)
[2021-05-11] MEDS: Lactated Ringers 1,000 ML IV SCH (07:47)
[2021-05-11] MEDS: Pantoprazole 40 MG in Sodium Chloride 0.9% 10 ML IVPUSH SCH (08:03)
[2021-05-11] MEDS: Heparin Sodium 5,000 Units/ML Vial SUBCUT SCH (08:03)
[2021-05-11] MEDS: Diltiazem 180 MG Cap.CD PO SCH (08:03)
[2021-05-11] MEDS: Folic Acid 1 MG Tab PO SCH (08:08)
[2021-05-11 08:35] LABS: BLOOD UREA NITROGEN,BUN 15 mg/dL (7.0-18.0); CARBON DIOXIDE,CO2 23.9 mmol/L (21.0-32.0); CHLORIDE,CL 105 mmol/L (98-107); GLUCOSE RANDOM 112 mg/dL (74-106); POTASSIUM,K 4.1 mmol/L (3.5-5.1); SODIUM,NA 139 mmol/L (136-148)
[2021-05-11] MEDS ORDERED: Thiamine 100 MG Tab PO SCH (09:00)
[2021-05-11] MEDS ORDERED: Metoprolol Tartrate 25 MG Tab PO SCH (09:00)
[2021-05-11] MEDS ORDERED: Magnesium Sulfate/Water 2 GM in Premix Bag 1 BAG IV ONE (10:00)
== END 2021-05-11 13:35 | disposition home or self-care (01) ==
LOC: MW.ED 20:27 → MW.MS 05-10 03:27 → MW.ICU 05-10 17:11
PROVIDERS: ADMIT Student in an Organized Health Care Education/Training Program; ATTEND Student in an Organized Health Care Education/Training Program
DX: I48.3 Typical atrial flutter (principal); F10.130 Alcohol abuse with withdrawal, uncomplicated; S22.32XA Fracture of one rib, left side, initial encounter for closed fracture; I48.91 Unspecified atrial fibrillation; I10 Essential (primary) hypertension; I25.2 Old myocardial infarction; J44.9 Chronic obstructive pulmonary disease, unspecified; F17.210 Nicotine dependence, cigarettes, uncomplicated; Z88.0 Allergy status to penicillin; Z79.899 Other long term (current) drug therapy; Z20.822 Contact with and (suspected) exposure to COVID-19
CPT/HCPCS: 36415; 71045; 80048; 80053; 80307; 83735; 83880; 84100; 84484; 85025; 85610; 85730; 87635; 93005; 96365; 96366; 96367; 96372; 96375; 96376; 99285; A9270; C9113; G0378; J1644; J2060; J3411; J3475; J3490; J7030; J7120; U0002

== ENCOUNTER 2021-05-22 17:05 | Emergency (ER) | payer BC ==
[2021-05-22] MEDS ORDERED: Sodium Chloride 0.9% 1,000 ML IV ONE ×2 (17:16→17:51)
[2021-05-22] MEDS ORDERED: Morphine 4 MG/ML VIAL IVPUSH ONE (17:16)
[2021-05-22] MEDS ORDERED: Aspirin 81 MG Tab.Chew PO ONE (17:16)
[2021-05-22] MEDS ORDERED: Diltiazem 25 MG/5 ML SDV IVPUSH ONE (17:20)
[2021-05-22 18:00] LABS: BLOOD UREA NITROGEN,BUN 10 mg/dL (7.0-18.0); CARBON DIOXIDE,CO2 24.1 mmol/L (21.0-32.0); CHLORIDE,CL 102 mmol/L (98-107); GLUCOSE RANDOM 101 mg/dL (74-106); LIPASE 132 U/L (73-393); POTASSIUM,K 4.1 mmol/L (3.5-5.1); SODIUM,NA 139 mmol/L (136-148)
[2021-05-22] MEDS ORDERED: Diltiazem IR 60 MG Tab PO ONE (18:32)
[2021-05-22] MEDS ORDERED: Acetaminophen 325 MG Tab PO ONE (20:36)
== END 2021-05-22 22:06 | disposition home or self-care (01) ==
LOC: MW.ED 17:05
DX: R07.9 Chest pain, unspecified (principal); F10.20 Alcohol dependence, uncomplicated; I10 Essential (primary) hypertension; I25.2 Old myocardial infarction; J44.9 Chronic obstructive pulmonary disease, unspecified; I48.91 Unspecified atrial fibrillation; I48.92 Unspecified atrial flutter; Y90.8 Blood alcohol level of 240 mg/100 ml or more; Z88.0 Allergy status to penicillin; Z79.899 Other long term (current) drug therapy; W18.30XA Fall on same level, unspecified, initial encounter
CPT/HCPCS: 36415; 70450; 71045; 72125; 80053; 80307; 82947; 83690; 83735; 83880; 84484; 85025; 85610; 85730; 93005; 96374; 96375; 99285; A9270; J2270; J3490; J7030; 93010; 99283

== ENCOUNTER 2021-10-29 11:15 | Inpatient (IN) | payer BC ==
[2021-10-29] MEDS ORDERED: Aspirin 81 MG Tab.Chew PO ONE (11:30)
[2021-10-29] MEDS ORDERED: Nitroglycerin 0.4 MG Tab.SL SL PRN (11:31)
[2021-10-29] MEDS ORDERED: Aspirin 81 MG Tab.Chew ONE (11:38)
[2021-10-29] MEDS ORDERED: Diltiazem 50 MG/10 ML SDV IVPUSH ONE (11:47)
[2021-10-29] MEDS ORDERED: Diltiazem 25 MG/5 ML SDV IVPUSH ONE ×2 (12:04→12:15)
[2021-10-29] MEDS ORDERED: fentaNYL 50 MCG/ML SDV IVPUSH ONE (12:12)
[2021-10-29 12:16] LABS: CARBON DIOXIDE,CO2 23.7 mmol/L (21.0-32.0); POTASSIUM,K 3.8 mmol/L (3.5-5.1)
[2021-10-29] MEDS ORDERED: Diltiazem IR 60 MG Tab PO ONE (13:00)
[2021-10-29] MEDS ORDERED: Sodium Chloride 0.9% 1,000 ML IV ONE (16:55)
[2021-10-29] MEDS ORDERED: Potassium Chloride 20 MEQ Tab.ER PO ONE (16:56)
[2021-10-29] MEDS ORDERED: Magnesium Sulfate/Water 2 GM/50 ML Premix Bag IV ONE (16:56)
[2021-10-29] MEDS ORDERED: Diltiazem 100 MG in Sodium Chloride 0.9% 100 ML IV SCH (17:00)
[2021-10-29] MEDS ORDERED: Magnesium Sulfate/Water 2 GM in Premix Bag 1 BAG IV ONE (17:15)
[2021-10-29] MEDS ORDERED: LORazepam 2 MG/ML SDV IVPUSH PRN (18:10)
[2021-10-29] MEDS ORDERED: Thiamine 100 MG in Sodium Chloride 0.9% 100 ML IV SCH (18:15)
[2021-10-29] MEDS: Thiamine 200 MG/2 ML MDV IVPUSH SCH (18:43)
[2021-10-29] MEDS: Folic Acid 50 MG/10 ML MDV SUBCUT SCH (18:43)
[2021-10-29] MEDS: Sodium Chloride 0.9% 1,000 ML IV SCH (18:52)
[2021-10-29] MEDS: Diltiazem IR 60 MG Tab PO SCH (19:56)
[2021-10-29] MEDS ORDERED: Acetaminophen 325 MG Tab PO PRN (20:03)
[2021-10-30] MEDS: Diltiazem IR 60 MG Tab PO SCH ×2 (00:07→05:03)
[2021-10-30] MEDS: Sodium Chloride 0.9% 1,000 ML IV SCH (02:57)
[2021-10-30 05:58] LABS: CARBON DIOXIDE,CO2 24.9 mmol/L (21.0-32.0); POTASSIUM,K 3.6 mmol/L (3.5-5.1)
[2021-10-30] MEDS: Folic Acid 50 MG/10 ML MDV SUBCUT SCH (08:15)
[2021-10-30] MEDS: Thiamine 200 MG/2 ML MDV IVPUSH SCH (08:16)
[2021-10-30] MEDS ORDERED: Metoprolol Succinate 100 MG Tab.ER PO ONE (09:00)
[2021-10-30] MEDS ORDERED: Diltiazem 120 MG Cap.CD PO SCH (11:00)
== END 2021-10-30 11:15 | disposition home or self-care (01) | DRG 201 ==
LOC: MW.ED 11:15 → MW.ICU 17:22
PROVIDERS: ADMIT Internal Medicine; ATTEND Internal Medicine
DX: I48.92 Unspecified atrial flutter (principal); I48.91 Unspecified atrial fibrillation; F10.10 Alcohol abuse, uncomplicated; Z20.822 Contact with and (suspected) exposure to COVID-19; I10 Essential (primary) hypertension; J44.9 Chronic obstructive pulmonary disease, unspecified; G89.29 Other chronic pain; M54.9 Dorsalgia, unspecified; F17.210 Nicotine dependence, cigarettes, uncomplicated; E86.0 Dehydration; I25.2 Old myocardial infarction; Z88.0 Allergy status to penicillin; Z79.899 Other long term (current) drug therapy; Z28.310 Unvaccinated for COVID-19
CPT/HCPCS: 36415; 71046; 71046-26; 80048; 80053; 83735; 84100; 84443; 84484; 85025; 93005; 93010; 96374; 96375; 99221; 99238; 99285; 99285-25; A9270-GY; J3010; J3411; J3475; J3490; J7030; U0002

== ENCOUNTER 2022-01-30 10:26 | Emergency (ER) | payer MEDICAID ==
[2022-01-30] MEDS ORDERED: Sodium Chloride 0.9% 1,000 ML IV ONE (10:53)
[2022-01-30] MEDS ORDERED: Aspirin 81 MG Tab.Chew PO ONE (10:53)
[2022-01-30] MEDS ORDERED: Aspirin 81 MG Tab.Chew ONE (11:10)
[2022-01-30 12:12] LABS: CARBON DIOXIDE,CO2 29.5 mmol/L (21.0-32.0); POTASSIUM,K 4.7 mmol/L (3.5-5.1)
[2022-01-30] MEDS ORDERED: Scopolamine 1.5 MG Transdermal Patch TRDERM STA (12:49)
== END 2022-01-30 13:32 | disposition home or self-care (01) ==
LOC: MW.ED 10:26
DX: F10.97 Alcohol use, unspecified with alcohol-induced persisting dementia (principal); Y90.5 Blood alcohol level of 100-119 mg/100 ml; I10 Essential (primary) hypertension; I25.2 Old myocardial infarction; F17.210 Nicotine dependence, cigarettes, uncomplicated; Z88.0 Allergy status to penicillin; Z79.899 Other long term (current) drug therapy
CPT/HCPCS: 36415; 70450; 71045; 80053; 80305; 80307; 82140; 82550; 82607; 83690; 83735; 83880; 84443; 84484; 85025; 85379; 85610; 93005; 96360; 99284; A9270; J7030; 93010; 99285

== ENCOUNTER 2022-04-10 21:43 | Emergency (ER) | payer OTHER, MEDICAID ==
[2022-04-10] MEDS ORDERED: Ketorolac 30 MG/ML SDV IVPUSH ONE (21:54)
== END 2022-04-11 05:22 | disposition home or self-care (01) ==
LOC: MW.ED 21:43
DX: S32.029A Unspecified fracture of second lumbar vertebra, initial encounter for closed fracture (principal); S32.049A Unspecified fracture of fourth lumbar vertebra, initial encounter for closed fracture; I10 Essential (primary) hypertension; I25.2 Old myocardial infarction; J44.9 Chronic obstructive pulmonary disease, unspecified; Z88.0 Allergy status to penicillin; Z79.899 Other long term (current) drug therapy; V19.9XXA Pedal cyclist (driver) (passenger) injured in unspecified traffic accident, initial encounter; Y93.55 Activity, bike riding
CPT/HCPCS: 70450; 72125; 72128; 72131; 96374; 99284; J1885

== ENCOUNTER 2022-06-29 03:38 | Emergency (ER) | payer MEDICAID ==
[2022-06-29] MEDS ORDERED: Sodium Chloride 0.9% 10 ML Syringe FLUSH PRN (03:43)
[2022-06-29] MEDS ORDERED: Sodium Chloride 0.9% 2.5 ML Syringe FLUSH PRN (03:43)
[2022-06-29] MEDS ORDERED: LORazepam 2 MG/ML SDV IVPUSH ONE ×2 (03:44→07:08)
[2022-06-29] MEDS ORDERED: Sodium Chloride 0.9% 1,000 ML IV ONE (03:44)
[2022-06-29] MEDS ORDERED: Nitroglycerin 0.4 MG Tab.SL SL ONE (04:14)
[2022-06-29 05:17] LABS: CARBON DIOXIDE,CO2 20.9 mmol/L (21.0-32.0); POTASSIUM,K 3.3 mmol/L (3.5-5.1)
[2022-06-29] MEDS ORDERED: Lactated Ringers 1,000 ML IV ONE (05:53)
[2022-06-29] MEDS ORDERED: Iopamidol 755 MG/ML 500 ML Multipack Bottle IVPUSH ONE (05:56)
[2022-06-29 06:04] LABS: CORONAVIRUS COVID-19 NAA NEGATIVE (NEGATIVE); INFLUENZA A NAA NEGATIVE (NEGATIVE); INFLUENZA B NAA NEGATIVE (NEGATIVE); RESPIRATORY SYNCYTIAL VIR NAA NEGATIVE (NEGATIVE)
[2022-06-29] MEDS ORDERED: Alum Hydro/Mag Hydro/Simeth XS 15 ML, Lidocaine 2% 5 ML PO ONE ×2 (07:08)
[2022-06-29] MEDS ORDERED: Famotidine 20 MG/2 ML SDV IVPUSH ONE (07:09)
== END 2022-06-29 07:55 | disposition home or self-care (01) ==
LOC: MW.ED 03:38
DX: K20.90 Esophagitis, unspecified without bleeding (principal); I10 Essential (primary) hypertension; I25.2 Old myocardial infarction; J44.9 Chronic obstructive pulmonary disease, unspecified; Z72.0 Tobacco use; Z88.0 Allergy status to penicillin; Z79.899 Other long term (current) drug therapy; Z20.822 Contact with and (suspected) exposure to COVID-19
CPT/HCPCS: 0241U; 36415; 71045; 71275; 80053; 80307; 83690; 83735; 84484; 85025; 93005; 96361; 96374; 96375; 96376; 99285; A9270; J2060; J3490; J7030; J7120; Q9967; 93010; 99284